=== PATIENT | female | born 1950 | race Two or more races ===

== ENCOUNTER 2017-12-10 16:54 | Inpatient (IN) | payer MEDICARE, MEDICAID ==
[~2017-12-10] VITALS: Ht 152.4 cm; Wt 65.8 kg
[~2017-12-10 16:54] MED LIST: ACET-929 PO; ACYC800T PO; GLIP-116 PO; LISI-646 PO
[2017-12-10] MEDS ORDERED: DEXTROSE 50% SYRINGE 50 ML IV ONE (17:22)
[2017-12-10] MEDS ORDERED: SODIUM CHLORIDE 0.9% 500 ML IV ONE (17:30)
[2017-12-10] MEDS ORDERED: DEXTROSE (50%) 50ML SYRG IV ONE (17:30)
[2017-12-10 17:48] LABS: Basophils # (auto) 0.1 uL; Basophils % (auto) 0.4 % (0.0-2.0); Eosinophils # (auto) 0.1 uL; Eosinophils % (auto) 0.8 % (0.0-7.0); Hematocrit 35.2 % (36.0-46.0); Hemoglobin 11.4 g/dL (12.2-16.2); Lymphocytes % (auto) 21.6 % (10.0-50.0); Mean Corpuscular Hemoglobin 28.9 pg (28.0-32.0); Mean Corpuscular Hgb Conc. 32.4 g/dL (32.0-36.0); Mean Corpuscular Volume 89.1 fL (80.0-100.0); Monocytes # (auto) 0.7 uL; Monocytes % (auto) 5.4 % (0.0-12.0); Neutrophils % (auto) 71.8 % (37.0-80.0); Nucleated Red Blood Cells % 0.1 %; Platelet Count (auto) 295 10^3/uL (140-450); Red Blood Cells 3.95 10^6/uL (4.0-5.20); Red Cell Distribution Width 13.8 % (11.8-14.3); White Blood Cell 13.9 10^3/uL (4.4-10.8)
[2017-12-10 17:59] LABS: INR 0.86 (0.9-1.15); Partial Thromboplastin Time 24.5 sec (23.78-33.04); Prothrombin Time 9.3 sec (9.27-12.13)
[2017-12-10 18:03] LABS: Albumin 3.5 g/dL (3.4-5.0); Calcium 9.4 mg/dL (8.5-10.1)
[2017-12-10 18:05] LABS: BUN/Creatinine Ratio 26.2
[2017-12-10 18:07] LABS: Bilirubin, Total 0.1 mg/dL (0.2-1.0); Total Protein 8.1 g/dL (6.4-8.2)
[2017-12-10 21:26] LABS: Urine Bacteria NONE SEEN /hpf (None Seen); Urine Blood Negative /uL (Negative); Urine Specific Gravity 1.023 (1.001-1.035); Urine WBC 16 /hpf (0 - 5)
[2017-12-10] MEDS ORDERED: TEMAZEPAM 15 MG CAP PO PRN (22:00)
[2017-12-10] MEDS ORDERED: MORPHINE SULFATE 8mg/ml INJ SDV IV PRN (22:00)
[2017-12-10] MEDS ORDERED: cefTRIAXone 1GM/10ml IVPUSH 10 ML IV ONE (22:00)
[2017-12-10] MEDS ORDERED: HYDROcodone-ACET 5/325MG TAB PO PRN (22:00)
[2017-12-10] MEDS ORDERED: ONDANSETRON HCL 4 MG/2 ML VIAL IV PRN (22:00)
[2017-12-11] VITALS (8 sets, daily range): BP systolic 127–176; BP diastolic 60–77
[2017-12-11] MEDS ORDERED: ATO40T PO (00:33)
[2017-12-11] MEDS ORDERED: METF-370 PO (00:33)
[2017-12-11] MEDS ORDERED: GABA100C9 PO (00:33)
[2017-12-11] MEDS ORDERED: IBUP800T24 PO (00:33)
[2017-12-11] MEDS: ACETAMINOPHEN 500 MG TAB PO PRN ×2 (01:43→17:41)
[2017-12-11] MEDS: ACCU-CHEK COMFORT CURVE STRIP VI SCH ×5 (04:00→16:00)
[2017-12-11] MEDS ORDERED: DEXTROSE (50%) 50ML SYRG IV PRN (04:15)
[2017-12-11] MEDS: GABAPENTIN 100 MG CAP PO SCH ×2 (04:26→13:22)
[2017-12-11 06:26] LABS: Basophils # (auto) 0.1 uL; Basophils % (auto) 0.5 % (0.0-2.0); Eosinophils # (auto) 0 uL; Eosinophils % (auto) 0.4 % (0.0-7.0); Hematocrit 28.1 % (36.0-46.0); Hemoglobin 9.7 g/dL (12.2-16.2); Lymphocytes # (auto) 2.7 uL; Lymphocytes % (auto) 25.7 % (10.0-50.0); Mean Corpuscular Hemoglobin 30.3 pg (28.0-32.0); Mean Corpuscular Hgb Conc. 34.4 g/dL (32.0-36.0); Mean Corpuscular Volume 88.2 fL (80.0-100.0); Monocytes # (auto) 0.7 uL; Monocytes % (auto) 6.1 % (0.0-12.0); Neutrophils # (auto) 7.2 uL; Neutrophils % (auto) 67.3 % (37.0-80.0); Platelet Count (auto) 256 10^3/uL (140-450); Red Blood Cells 3.19 10^6/uL (4.0-5.20); Red Cell Distribution Width 13.5 % (11.8-14.3); White Blood Cell 10.7 10^3/uL (4.4-10.8)
[2017-12-11 06:40] LABS: BUN/Creatinine Ratio 28.6; Calcium 8.9 mg/dL (8.5-10.1)
[2017-12-11] MEDS ORDERED: ACCU-CHEK COMFORT CURVE STRIP VI SCH (07:00)
[2017-12-11] MEDS: metFORMIN HYDROCHLORIDE 500 MG TAB PO SCH ×2 (08:31→17:32)
[2017-12-11] MEDS ORDERED: cefTRIAXone 1GM/10ml IVPUSH 10 ML IV SCH (09:00)
[2017-12-11] MEDS ORDERED: PANTOPRAZOLE 40 MG/10 ML VIAL IV SCH (10:00)
[2017-12-11] MEDS ORDERED: LISINOPRIL 20 MG TAB PO SCH ×2 (10:00)
[2017-12-11] MEDS ORDERED: SODIUM CHLORIDE 0.9% 1,000 ML IV ONE ×2 (15:00→15:15)
== END 2017-12-11 18:20 | disposition home or self-care (01) | DRG 638 ==
LOC: ER 17:04 → OVERFLOW 17:05 → WEST WING 23:59
PROVIDERS: ADMIT Nurse Practitioner Family; ATTEND Nurse Practitioner Family
DX: E11.649 Type 2 diabetes mellitus with hypoglycemia without coma (principal); N39.0 Urinary tract infection, site not specified; D64.9 Anemia, unspecified; E78.00 Pure hypercholesterolemia, unspecified; E78.5 Hyperlipidemia, unspecified; E86.0 Dehydration; F17.210 Nicotine dependence, cigarettes, uncomplicated; I10 Essential (primary) hypertension; Z79.84 Long term (current) use of oral hypoglycemic drugs; Z79.899 Other long term (current) drug therapy
CPT/HCPCS: 36415; 71045; 80048; 80053; 81001; 82962; 85025; 85610; 85730; 87086; 93005; 94761; 96374; 96375; C9113; J2405

== ENCOUNTER 2017-12-12 12:57 | Inpatient (IN) | payer MEDICARE, MEDICAID ==
[~2017-12-12] VITALS: Ht 152.4 cm; Wt 67.9 kg
[~2017-12-12 12:57] MED LIST changes: -ACET-929 PO; -ACYC800T PO; +ATO40T PO; +GABA100C9 PO; +IBUP800T24 PO; +METF-370 PO
[2017-12-12] MEDS ORDERED: SODIUM CHLORIDE 0.9% 1,000 ML IVB ONE (13:28)
[2017-12-12] MEDS ORDERED: DEXTROSE (50%) 50ML SYRG IV ONE (13:45)
[2017-12-12 13:56] LABS: Basophils # (auto) 0.1 uL; Basophils % (auto) 0.6 % (0.0-2.0); Eosinophils # (auto) 0.1 uL; Eosinophils % (auto) 0.8 % (0.0-7.0); Hematocrit 33.2 % (36.0-46.0); Hemoglobin 10.8 g/dL (12.2-16.2); Lymphocytes # (auto) 2.6 uL; Lymphocytes % (auto) 19.4 % (10.0-50.0); Mean Corpuscular Hemoglobin 28.9 pg (28.0-32.0); Mean Corpuscular Hgb Conc. 32.4 g/dL (32.0-36.0); Mean Corpuscular Volume 89.2 fL (80.0-100.0); Monocytes # (auto) 0.6 uL; Monocytes % (auto) 4.6 % (0.0-12.0); Neutrophils # (auto) 9.8 uL; Neutrophils % (auto) 74.6 % (37.0-80.0); Platelet Count (auto) 296 10^3/uL (140-450); Red Blood Cells 3.72 10^6/uL (4.0-5.20); Red Cell Distribution Width 13.9 % (11.8-14.3); White Blood Cell 13.2 10^3/uL (4.4-10.8)
[2017-12-12 14:07] LABS: INR 0.88 (0.9-1.15); Partial Thromboplastin Time 24.8 sec (23.78-33.04); Prothrombin Time 9.5 sec (9.27-12.13)
[2017-12-12 14:14] LABS: Albumin 3.4 g/dL (3.4-5.0); Calcium 9.2 mg/dL (8.5-10.1); Magnesium 1.4 mg/dL (1.6-2.6); Potassium 4.8 mmol/L (3.5-5.1)
[2017-12-12 14:17] LABS: BUN/Creatinine Ratio 26.6
[2017-12-12 14:19] LABS: Bilirubin, Total 0.2 mg/dL (0.2-1.0); Total Protein 7.8 g/dL (6.4-8.2)
[2017-12-12 15:10] LABS: Urine Bacteria FEW /hpf (None Seen); Urine Blood Negative /uL (Negative); Urine Specific Gravity 1.011 (1.001-1.035); Urine WBC 30 /hpf (0 - 5)
[2017-12-12] MEDS: MAGNESIUM SULFATE 1GM/100ML 100 ML IV SCH ×2 (15:57→16:29)
[2017-12-12] MEDS ORDERED: cefTRIAXone 1GM/10ml IVPUSH 10 ML IV ONE (16:00)
[2017-12-12] MEDS ORDERED: DEXTROSE (50%) 50ML SYRG IV PRN (17:45)
[2017-12-12] MEDS ORDERED: MAGNESIUM SULFATE 1GM/100ML 100 ML IV ONE (17:45)
[2017-12-12] MEDS ORDERED: ONDANSETRON HCL 4 MG/2 ML VIAL IV PRN (18:00)
[2017-12-12] MEDS ORDERED: NITROGLYCERIN 0.4 MG SL TAB SL PRN (18:00)
[2017-12-12] MEDS ORDERED: ACETAMINOPHEN 325 MG TAB PO PRN (18:00)
[2017-12-12] MEDS ORDERED: DOCUSATE SOD 100 MG CAP PO PRN (18:00)
[2017-12-12] MEDS ORDERED: MORPHINE SULFATE 8mg/ml INJ SDV IV PRN ×2 (18:00)
[2017-12-12 20:15] VITALS: BP 162/77
[2017-12-12] MEDS: cloNIDine HCL 0.1 MG TAB PO PRN (20:32)
[2017-12-12] MEDS: FAMOTIDINE 20 MG TAB PO SCH (21:56)
[2017-12-12] MEDS: SODIUM CHLOR 0.9% PF (SALINE LOCK) 10ML VIAL/SYR IV SCH (21:56)
[2017-12-12] MEDS: ACCU-CHEK COMFORT CURVE STRIP VI SCH (21:56)
[2017-12-12] MEDS: ATORVASTATIN 20 MG TAB PO SCH (21:56)
[2017-12-12] MEDS: InsuLIN REG 1unit/0.01ml Soln (100units/ml) SC SCH (21:57)
[2017-12-12 22:00] VITALS: BP 144/60
[2017-12-13 05:00] VITALS: BP 119/62
[2017-12-13] MEDS: SODIUM CHLOR 0.9% PF (SALINE LOCK) 10ML VIAL/SYR IV SCH ×3 (05:39→21:19)
[2017-12-13 06:48] LABS: Basophils # (auto) 0.1 uL; Basophils % (auto) 0.6 % (0.0-2.0); Eosinophils # (auto) 0.1 uL; Eosinophils % (auto) 0.8 % (0.0-7.0); Hemoglobin 9.7 g/dL (12.2-16.2); Lymphocytes # (auto) 2.8 uL; Lymphocytes % (auto) 30.9 % (10.0-50.0); Mean Corpuscular Hemoglobin 29.8 pg (28.0-32.0); Mean Corpuscular Hgb Conc. 33.5 g/dL (32.0-36.0); Mean Corpuscular Volume 88.8 fL (80.0-100.0); Monocytes # (auto) 0.7 uL; Monocytes % (auto) 7.6 % (0.0-12.0); Neutrophils # (auto) 5.4 uL; Neutrophils % (auto) 60.1 % (37.0-80.0); Nucleated Red Blood Cells % 0.1 %; Platelet Count (auto) 241 10^3/uL (140-450); Red Blood Cells 3.26 10^6/uL (4.0-5.20); Red Cell Distribution Width 13.6 % (11.8-14.3)
[2017-12-13] MEDS: InsuLIN REG 1unit/0.01ml Soln (100units/ml) SC SCH ×4 (06:52→21:31)
[2017-12-13] MEDS: ACCU-CHEK COMFORT CURVE STRIP VI SCH ×4 (06:52→21:19)
[2017-12-13 07:12] LABS: Albumin 2.8 g/dL (3.4-5.0); BUN/Creatinine Ratio 25.5; Bilirubin, Total 0.2 mg/dL (0.2-1.0); Calcium 8.7 mg/dL (8.5-10.1); Magnesium 2.1 mg/dL (1.6-2.6); Total Protein 6.5 g/dL (6.4-8.2)
[2017-12-13] MEDS: IBUPROFEN 800 MG TAB PO PRN ×2 (07:40→17:29)
[2017-12-13 07:52] LABS: Potassium 6.2 mmol/L (3.5-5.1)
[2017-12-13] MEDS ORDERED: glipiZIDE 5 MG TAB PO SCH (08:00)
[2017-12-13 08:40] VITALS: BP 139/70
[2017-12-13] MEDS: cefTRIAXone 1GM/10ml IVPUSH 10 ML IV SCH (09:27)
[2017-12-13] MEDS: MULTIPLE VITAMIN TAB PO SCH (09:27)
[2017-12-13] MEDS: FAMOTIDINE 20 MG TAB PO SCH ×2 (09:28→21:18)
[2017-12-13] MEDS ORDERED: LISINOPRIL 20 MG TAB PO SCH (10:00)
[2017-12-13 13:00] VITALS: BP 155/75
[2017-12-13 17:00] VITALS: BP 161/73
[2017-12-13] MEDS: cloNIDine HCL 0.1 MG TAB PO PRN (17:23)
[2017-12-13 19:40] VITALS: BP 152/78
[2017-12-13] MEDS: ATORVASTATIN 20 MG TAB PO SCH (21:18)
[2017-12-13] MEDS: TEMAZEPAM 15 MG CAP PO PRN (21:18)
[2017-12-13] MEDS: HYDROcodone-ACET 5/325MG TAB PO PRN (21:19)
[2017-12-13 21:41] VITALS: BP 130/60
[2017-12-14 04:40] VITALS: BP 120/68
[2017-12-14] MEDS: SODIUM CHLOR 0.9% PF (SALINE LOCK) 10ML VIAL/SYR IV SCH ×3 (06:11→21:20)
[2017-12-14] MEDS: ACCU-CHEK COMFORT CURVE STRIP VI SCH ×4 (06:12→21:20)
[2017-12-14] MEDS: glipiZIDE 5 MG TAB PO SCH ×2 (06:12→18:00)
[2017-12-14] MEDS: InsuLIN REG 1unit/0.01ml Soln (100units/ml) SC SCH ×4 (06:12→21:21)
[2017-12-14] MEDS: HYDROcodone-ACET 5/325MG TAB PO PRN (06:12)
[2017-12-14] MEDS: MULTIPLE VITAMIN TAB PO SCH (08:07)
[2017-12-14] MEDS: FAMOTIDINE 20 MG TAB PO SCH ×2 (08:07→21:20)
[2017-12-14] MEDS: IBUPROFEN 800 MG TAB PO PRN (08:07)
[2017-12-14] MEDS: cefTRIAXone 1GM/10ml IVPUSH 10 ML IV SCH (08:08)
[2017-12-14 09:00] VITALS: BP 141/75
[2017-12-14 12:15] VITALS: BP 145/68
[2017-12-14 17:11] VITALS: BP 162/78
[2017-12-14] MEDS: TEMAZEPAM 15 MG CAP PO PRN (21:20)
[2017-12-14] MEDS: ATORVASTATIN 20 MG TAB PO SCH (21:20)
[2017-12-14 22:00] VITALS: BP 124/64
[2017-12-15] VITALS (7 sets, daily range): BP systolic 119–157; BP diastolic 56–78
[2017-12-15] MEDS: SODIUM CHLOR 0.9% PF (SALINE LOCK) 10ML VIAL/SYR IV SCH ×3 (05:52→22:20)
[2017-12-15] MEDS: glipiZIDE 5 MG TAB PO SCH ×2 (05:52→18:00)
[2017-12-15] MEDS: ACCU-CHEK COMFORT CURVE STRIP VI SCH ×4 (05:53→22:21)
[2017-12-15] MEDS: InsuLIN REG 1unit/0.01ml Soln (100units/ml) SC SCH ×4 (05:53→22:20)
[2017-12-15 06:21] LABS: Basophils # (auto) 0.1 uL; Basophils % (auto) 0.6 % (0.0-2.0); Eosinophils # (auto) 0.2 uL; Eosinophils % (auto) 1.9 % (0.0-7.0); Hematocrit 29.5 % (36.0-46.0); Hemoglobin 9.8 g/dL (12.2-16.2); Lymphocytes # (auto) 2.8 uL; Lymphocytes % (auto) 31.3 % (10.0-50.0); Mean Corpuscular Hemoglobin 29.7 pg (28.0-32.0); Mean Corpuscular Hgb Conc. 33.3 g/dL (32.0-36.0); Mean Corpuscular Volume 89.2 fL (80.0-100.0); Monocytes # (auto) 0.7 uL; Monocytes % (auto) 7.5 % (0.0-12.0); Neutrophils # (auto) 5.2 uL; Neutrophils % (auto) 58.7 % (37.0-80.0); Platelet Count (auto) 264 10^3/uL (140-450); Red Cell Distribution Width 13.6 % (11.8-14.3); White Blood Cell 8.9 10^3/uL (4.4-10.8)
[2017-12-15 06:52] LABS: BUN/Creatinine Ratio 36.6; Calcium 8.4 mg/dL (8.5-10.1); Potassium 5.1 mmol/L (3.5-5.1)
[2017-12-15] MEDS ORDERED: SODIUM CHLORIDE 0.9% 1,000 ML IV ONE (09:00)
[2017-12-15] MEDS ORDERED: D5W/SOD CHLO 0.9% 1,000 ML IV ONE (09:30)
[2017-12-15] MEDS: FAMOTIDINE 20 MG TAB PO SCH ×2 (09:40→22:20)
[2017-12-15] MEDS: MULTIPLE VITAMIN TAB PO SCH (09:40)
[2017-12-15] MEDS: cefTRIAXone 1GM/10ml IVPUSH 10 ML IV SCH (09:41)
[2017-12-15] MEDS ORDERED: fentaNYL CITRATE 100 MCG/2 ML VL ONE (12:57)
[2017-12-15] MEDS ORDERED: SODIUM CHLORIDE LOCK 10 ML ONE (12:57)
[2017-12-15] MEDS ORDERED: LIDOCAINE VISCOUS 2% 15ML UD ONE (12:57)
[2017-12-15] MEDS ORDERED: MIDAZOLAM HCL 5 MG/ML-1ML VIAL ONE (12:58)
[2017-12-15] MEDS ORDERED: diphenhdrAMINE HCL 50 MG/1 ML VL ONE (12:58)
[2017-12-15] MEDS: ATORVASTATIN 20 MG TAB PO SCH (22:20)
[2017-12-16 05:00] VITALS: BP 141/67
[2017-12-16] MEDS: SODIUM CHLOR 0.9% PF (SALINE LOCK) 10ML VIAL/SYR IV SCH ×2 (06:33→14:00)
[2017-12-16] MEDS: ACCU-CHEK COMFORT CURVE STRIP VI SCH ×2 (06:34→12:26)
[2017-12-16] MEDS: InsuLIN REG 1unit/0.01ml Soln (100units/ml) SC SCH ×2 (06:34→12:27)
[2017-12-16] MEDS: glipiZIDE 5 MG TAB PO SCH (06:34)
[2017-12-16 08:00] VITALS: BP 143/69
[2017-12-16 08:43] VITALS: BP 143/69
[2017-12-16] MEDS: MULTIPLE VITAMIN TAB PO SCH (10:27)
[2017-12-16] MEDS: cefTRIAXone 1GM/10ml IVPUSH 10 ML IV SCH (10:27)
[2017-12-16] MEDS: FAMOTIDINE 20 MG TAB PO SCH (10:28)
[2017-12-16] MEDS ORDERED: GLIP-115 PO (10:54)
[2017-12-16] MEDS ORDERED: AMLO5TAB2 PO (10:54)
[2017-12-16] MEDS ORDERED: CEPH-37 PO (10:54)
[2017-12-16] MEDS ORDERED: LACTULOSE 20Gm/30ML SOLN PO ONE (11:45)
[2017-12-16 12:37] VITALS: BP 131/68
[2017-12-16 15:32] VITALS: BP 131/68
== END 2017-12-16 15:32 | disposition home or self-care (01) | DRG 638 ==
LOC: ER 12:58 → OVERFLOW 12:59 → WEST WING 20:07
PROVIDERS: ADMIT Internal Medicine; ATTEND Internal Medicine
PROC: 0D758ZZ Dilation of Esophagus, Via Natural or Artificial Opening Endoscopic (ICD-10-PCS; principal; 2017-12-15 12:56)
DX: E11.649 Type 2 diabetes mellitus with hypoglycemia without coma (principal); N39.0 Urinary tract infection, site not specified; E11.21 Type 2 diabetes mellitus with diabetic nephropathy; E11.40 Type 2 diabetes mellitus with diabetic neuropathy, unspecified; E83.42 Hypomagnesemia; D50.8 Other iron deficiency anemias; F17.210 Nicotine dependence, cigarettes, uncomplicated; R13.10 Dysphagia, unspecified; D63.8 Anemia in other chronic diseases classified elsewhere; E78.5 Hyperlipidemia, unspecified; N18.2 Chronic kidney disease, stage 2 (mild); R63.4 Abnormal weight loss; E04.2 Nontoxic multinodular goiter; E11.22 Type 2 diabetes mellitus with diabetic chronic kidney disease; Z83.3 Family history of diabetes mellitus; Z87.440 Personal history of urinary (tract) infections; Z68.29 Body mass index [BMI] 29.0-29.9, adult
CPT/HCPCS: 36415; 43235; 43450; 71045; 76536; 80048; 80053; 81001; 82150; 82962; 83036; 83690; 83735; 84132; 84443; 85025; 85610; 85730; 87081; 87086; 93005; 93306; 94761; 96361; 96374; 96375; J1815; J2250; J7042

== ENCOUNTER 2018-03-27 17:46 | Inpatient (IN) | payer MEDICARE, MEDICAID ==
[~2018-03-27] VITALS: Ht 157.5 cm; Wt 68.6 kg
[~2018-03-27 17:46] MED LIST changes: +AMLO5TAB13 PO; +CEPH-37 PO; +GLIP-115 PO; -GLIP-116 PO; -LISI-646 PO
[2018-03-27 18:31] LABS: Basophils # (auto) 0.1 uL; Basophils % (auto) 0.8 % (0.0-2.0); Eosinophils # (auto) 0.2 uL; Eosinophils % (auto) 1.7 % (0.0-7.0); Hematocrit 33.7 % (36.0-46.0); Hemoglobin 11.2 g/dL (12.2-16.2); Lymphocytes # (auto) 2.5 uL; Lymphocytes % (auto) 24.9 % (10.0-50.0); Mean Corpuscular Hgb Conc. 33.3 g/dL (32.0-36.0); Mean Corpuscular Volume 87.1 fL (80.0-100.0); Monocytes # (auto) 0.8 uL; Monocytes % (auto) 8.5 % (0.0-12.0); Neutrophils # (auto) 6.4 uL; Neutrophils % (auto) 64.1 % (37.0-80.0); Nucleated Red Blood Cells % 0.1 %; Platelet Count (auto) 303 10^3/uL (140-450); Red Blood Cells 3.87 10^6/uL (4.0-5.20); Red Cell Distribution Width 14.4 % (11.8-14.3); White Blood Cell 9.9 10^3/uL (4.4-10.8)
[2018-03-27] MEDS ORDERED: SODIUM CHLORIDE 0.9% 500 ML IV ONE (18:47)
[2018-03-27 18:48] LABS: Alanine Aminotransferase 60 U/L (13-56); Albumin 3.6 g/dL (3.4-5.0); Alkaline Phosphatase 145 U/L (45-117); Anion Gap 4 (5-15); Aspartate Aminotransferase 42 U/L (15-37); BUN/Creatinine Ratio 12.7; Bilirubin, Total 0.2 mg/dL (0.2-1.0); Blood Urea Nitrogen 18 mg/dL (7-18); Calcium 8.8 mg/dL (8.5-10.1); Carbon Dioxide 35 mmol/L (21-32); Chloride 102 mmol/L (98-107); GFR African American 48 mL/min; GFR Non-African American 39 mL/min; Glucose 68 mg/dL (74-106); Magnesium 2.2 mg/dL (1.6-2.6); Potassium 3.9 mmol/L (3.5-5.1); Sodium 141 mmol/L (136-145); Total Protein 8.3 g/dL (6.4-8.2)
[2018-03-27] MEDS ORDERED: HYDROcodone-ACET 5/325MG TAB PO PRN (23:00)
[2018-03-27] MEDS ORDERED: ONDANSETRON HCL 4 MG/2 ML VIAL IV PRN (23:00)
[2018-03-27] MEDS ORDERED: ACETAMINOPHEN 500 MG TAB PO PRN (23:00)
[2018-03-27] MEDS ORDERED: LISINOPRIL 20 MG TAB PO ONE (23:25)
[2018-03-28] VITALS: BP_SYST 173; BP_SYST 195; BP_DIAS 92; BP_DIAS 96
[2018-03-28] MEDS ORDERED: cloNIDine HCL 0.1 MG TAB PO ONE (04:15)
[2018-03-28 04:52] VITALS: BP 174/80
[2018-03-28] MEDS ORDERED: DEXTROSE (50%) 50ML SYRG IV PRN ×2 (06:15→07:15)
[2018-03-28] MEDS ORDERED: metFORMIN HYDROCHLORIDE 500 MG TAB PO SCH (07:00)
[2018-03-28 07:26] LABS: Basophils # (auto) 0 uL; Basophils % (auto) 0.5 % (0.0-2.0); Eosinophils # (auto) 0.1 uL; Hematocrit 30.1 % (36.0-46.0); Hemoglobin 10.5 g/dL (12.2-16.2); Lymphocytes # (auto) 2.4 uL; Lymphocytes % (auto) 25.9 % (10.0-50.0); Mean Corpuscular Hemoglobin 30.1 pg (28.0-32.0); Mean Corpuscular Hgb Conc. 34.8 g/dL (32.0-36.0); Mean Corpuscular Volume 86.5 fL (80.0-100.0); Monocytes # (auto) 0.7 uL; Neutrophils # (auto) 6.1 uL; Neutrophils % (auto) 65.6 % (37.0-80.0); Platelet Count (auto) 265 10^3/uL (140-450); Red Blood Cells 3.48 10^6/uL (4.0-5.20); Red Cell Distribution Width 14.6 % (11.8-14.3); White Blood Cell 9.3 10^3/uL (4.4-10.8)
[2018-03-28 07:43] LABS: BUN/Creatinine Ratio 13.1; Calcium 8.2 mg/dL (8.5-10.1); Potassium 4.1 mmol/L (3.5-5.1)
[2018-03-28 09:00] VITALS: BP 155/75
[2018-03-28] MEDS: LISINOPRIL 20 MG TAB PO SCH (09:24)
[2018-03-28] MEDS: PANTOPRAZOLE 40 MG/10 ML VIAL IV SCH (09:24)
[2018-03-28] MEDS: SODIUM CHLORIDE 0.9% 1,000 ML IV SCH (11:14)
[2018-03-28] MEDS ORDERED: amLODIPine BESYLATE 5 MG TAB PO ONE (11:15)
[2018-03-28] MEDS: ACCU-CHEK COMFORT CURVE STRIP VI SCH ×3 (11:37→21:51)
[2018-03-28] MEDS: InsuLIN REG 1unit/0.01ml Soln (100units/ml) SC SCH ×3 (11:37→21:58)
[2018-03-28 13:00] VITALS: BP 162/79
[2018-03-28] MEDS ORDERED: BARIUM SULFATE 98% 340 GM PWDR ONE (14:12)
[2018-03-28] MEDS ORDERED: EZ-GAS II GRANULES (RADIOLOGY USE) PO ONE (14:12)
[2018-03-28 17:00] VITALS: BP_SYST 121; BP_SYST 126; BP_DIAS 75; BP_DIAS 90
[2018-03-28 22:00] VITALS: BP 130/73
[2018-03-29 05:03] VITALS: BP 142/76
[2018-03-29] MEDS: ACCU-CHEK COMFORT CURVE STRIP VI SCH ×4 (06:42→22:08)
[2018-03-29] MEDS: InsuLIN REG 1unit/0.01ml Soln (100units/ml) SC SCH ×4 (06:43→22:08)
[2018-03-29 06:58] LABS: Basophils # (auto) 0 uL; Basophils % (auto) 0.5 % (0.0-2.0); Eosinophils # (auto) 0.1 uL; Eosinophils % (auto) 1.5 % (0.0-7.0); Hematocrit 29.7 % (36.0-46.0); Hemoglobin 10.2 g/dL (12.2-16.2); Lymphocytes # (auto) 2.6 uL; Lymphocytes % (auto) 31.5 % (10.0-50.0); Mean Corpuscular Hemoglobin 29.8 pg (28.0-32.0); Mean Corpuscular Hgb Conc. 34.2 g/dL (32.0-36.0); Mean Corpuscular Volume 87.1 fL (80.0-100.0); Monocytes # (auto) 0.6 uL; Monocytes % (auto) 6.8 % (0.0-12.0); Neutrophils # (auto) 4.9 uL; Neutrophils % (auto) 59.7 % (37.0-80.0); Platelet Count (auto) 247 10^3/uL (140-450); Red Blood Cells 3.41 10^6/uL (4.0-5.20); Red Cell Distribution Width 14.3 % (11.8-14.3); White Blood Cell 8.2 10^3/uL (4.4-10.8)
[2018-03-29 07:39] LABS: Albumin 2.9 g/dL (3.4-5.0); BUN/Creatinine Ratio 17.8; Bilirubin, Total 0.2 mg/dL (0.2-1.0); Calcium 8.3 mg/dL (8.5-10.1); Potassium 4.7 mmol/L (3.5-5.1); Total Protein 6.8 g/dL (6.4-8.2)
[2018-03-29] MEDS: SODIUM CHLORIDE 0.9% 1,000 ML IV SCH (08:20)
[2018-03-29] MEDS: PANTOPRAZOLE 40 MG/10 ML VIAL IV SCH (08:23)
[2018-03-29] MEDS: LISINOPRIL 20 MG TAB PO SCH (08:23)
[2018-03-29 09:00] VITALS: BP 163/76
[2018-03-29] MEDS ORDERED: amLODIPine BESYLATE 5 MG TAB PO SCH (10:00)
[2018-03-29] MEDS ORDERED: LORazepam 0.5 MG TAB PO ONE (11:15)
[2018-03-29 12:49] VITALS: BP 151/70
[2018-03-29 13:09] VITALS: BP 157/72
[2018-03-29] MEDS: NIFEdipine 10 MG CAP PO SCH ×2 (14:01→22:07)
[2018-03-29 17:00] VITALS: BP 135/63
[2018-03-29 21:01] LABS: Urine Bacteria NONE SEEN /hpf (None Seen); Urine Blood Negative /uL (Negative); Urine Specific Gravity 1.016 (1.001-1.035); Urine WBC 8 /hpf (0 - 5)
[2018-03-29 22:00] VITALS: BP 124/65
[2018-03-30 04:54] VITALS: BP 128/62
[2018-03-30] MEDS: NIFEdipine 10 MG CAP PO SCH (06:39)
[2018-03-30] MEDS: InsuLIN REG 1unit/0.01ml Soln (100units/ml) SC SCH ×2 (06:39→12:21)
[2018-03-30] MEDS: ACCU-CHEK COMFORT CURVE STRIP VI SCH ×2 (06:39→11:30)
[2018-03-30 08:00] VITALS: BP_SYST 106; BP_SYST 139; BP_DIAS 56; BP_DIAS 85
[2018-03-30] MEDS: LISINOPRIL 20 MG TAB PO SCH (10:00)
[2018-03-30] MEDS: PANTOPRAZOLE 40 MG/10 ML VIAL IV SCH (10:20)
[2018-03-30 12:00] VITALS: BP 136/63
[2018-03-30] MEDS ORDERED: NIFE20CA PO (12:16)
[2018-03-30] MEDS ORDERED: PANT40TA2 PO (12:16)
== END 2018-03-30 16:15 | disposition home or self-care (01) | DRG 638 ==
LOC: ER 17:51 → OVERFLOW 17:52 → CENTRAL 23:53
PROVIDERS: ADMIT Nurse Practitioner Family; ATTEND Internal Medicine
DX: E11.649 Type 2 diabetes mellitus with hypoglycemia without coma (principal); I16.1 Hypertensive emergency; K52.9 Noninfective gastroenteritis and colitis, unspecified; N18.9 Chronic kidney disease, unspecified; E11.22 Type 2 diabetes mellitus with diabetic chronic kidney disease; I12.9 Hypertensive chronic kidney disease with stage 1 through stage 4 chronic kidney disease, or unspecified chronic kidney disease; D64.9 Anemia, unspecified; E11.40 Type 2 diabetes mellitus with diabetic neuropathy, unspecified; E78.5 Hyperlipidemia, unspecified; K22.4 Dyskinesia of esophagus; E86.0 Dehydration; K76.0 Fatty (change of) liver, not elsewhere classified; Z79.84 Long term (current) use of oral hypoglycemic drugs; Z88.6 Allergy status to analgesic agent
CPT/HCPCS: 36415; 71046; 74220; 76705; 80048; 80053; 81001; 82962; 83036; 83690; 83735; 84484; 85025; 93005; 94761; 96361; 96374; C9113; J1815

== ENCOUNTER 2018-06-20 06:30 | Emergency (ER) | payer MEDICARE, MEDICAID ==
[~2018-06-20] VITALS: Ht 154.9 cm; Wt 65.3 kg
[~2018-06-20 06:30] MED LIST changes: -AMLO5TAB13 PO; -ATO40T PO; -CEPH-37 PO; +NIFE20CA PO; +PANT40TA2 PO
[2018-06-20 07:20] LABS: Basophils # (auto) 0.1 uL; Basophils % (auto) 0.6 % (0.0-2.0); Eosinophils # (auto) 0 uL; Eosinophils % (auto) 0.5 % (0.0-7.0); Hematocrit 33.7 % (36.0-46.0); Hemoglobin 11.1 g/dL (12.2-16.2); Lymphocytes # (auto) 2.1 uL; Lymphocytes % (auto) 21.2 % (10.0-50.0); Mean Corpuscular Hemoglobin 29.6 pg (28.0-32.0); Mean Corpuscular Hgb Conc. 32.9 g/dL (32.0-36.0); Mean Corpuscular Volume 89.9 fL (80.0-100.0); Monocytes # (auto) 0.5 uL; Monocytes % (auto) 4.7 % (0.0-12.0); Neutrophils # (auto) 7.4 uL; Nucleated Red Blood Cells % 0.1 %; Platelet Count (auto) 344 10^3/uL (140-450); Red Blood Cells 3.75 10^6/uL (4.0-5.20); Red Cell Distribution Width 14.7 % (11.8-14.3); White Blood Cell 10.1 10^3/uL (4.4-10.8)
[2018-06-20 07:40] LABS: Alanine Aminotransferase 34 U/L (13-56); Albumin 3.5 g/dL (3.4-5.0); Anion Gap 5 (5-15); Blood Urea Nitrogen 27 mg/dL (7-18); Calcium 8.6 mg/dL (8.5-10.1); Carbon Dioxide 20 mmol/L (21-32); Chloride 110 mmol/L (98-107); Glucose 144 mg/dL (74-106); Magnesium 1.9 mg/dL (1.6-2.6); Sodium 135 mmol/L (136-145)
[2018-06-20 07:44] LABS: Alkaline Phosphatase 141 U/L (45-117); Aspartate Aminotransferase 22 U/L (15-37); BUN/Creatinine Ratio 23.7; Bilirubin, Total 0.2 mg/dL (0.2-1.0); GFR African American 62 mL/min; GFR Non-African American 51 mL/min; Total Protein 8.1 g/dL (6.4-8.2)
[2018-06-20 07:49] LABS: Potassium 5.6 mmol/L (3.5-5.1)
[2018-06-20] MEDS ORDERED: DEXTROSE (50%) 50ML SYRG IV ONE (08:00)
[2018-06-20] MEDS ORDERED: InsuLIN REG 1unit/0.01ml Soln (100units/ml) IV ONE (08:00)
[2018-06-20] MEDS ORDERED: CALCIUM GLUC 4.65meq/50ml D5AE 50 ML IV ONE (08:00)
[2018-06-20] MEDS ORDERED: SODIUM BICARBONATE 8.4% INJ 50ML SYRINGE IV ONE (08:00)
[2018-06-20] MEDS ORDERED: LISI-646 PO (09:12)
[2018-06-20] MEDS ORDERED: AML5T PO (09:12)
[2018-06-20 09:42] LABS: Urine Bacteria FEW /hpf (None Seen); Urine Blood Negative /uL (Negative); Urine WBC 8 /hpf (0 - 5)
[2018-06-20 10:26] VITALS: BP 142/74
== END 2018-06-20 10:27 | disposition home or self-care (01) ==
LOC: ER 06:30
DX: N39.0 Urinary tract infection, site not specified (principal); E11.9 Type 2 diabetes mellitus without complications; E78.5 Hyperlipidemia, unspecified; R07.89 Other chest pain; I10 Essential (primary) hypertension; Z88.6 Allergy status to analgesic agent
CPT/HCPCS: 36415; 71045; 80053; 81001; 83735; 84484; 85025; 93005; 96365; 96375; 99284; J0610; J1815; J7042

== ENCOUNTER 2018-07-30 21:19 | Emergency (ER) | payer MEDICARE, MEDICAID ==
[~2018-07-30] VITALS: Ht 152.4 cm; Wt 65.8 kg
[~2018-07-30 21:19] MED LIST changes: +AML5T PO; -GABA100C9 PO; +LISI-646 PO; -NIFE20CA PO
[2018-07-30 22:30] LABS: Basophils # (auto) 0.1 uL; Basophils % (auto) 0.6 % (0.0-2.0); Eosinophils # (auto) 0.1 uL; Eosinophils % (auto) 1.1 % (0.0-7.0); Hematocrit 33.2 % (36.0-46.0); Hemoglobin 10.9 g/dL (12.2-16.2); Lymphocytes # (auto) 2.9 uL; Lymphocytes % (auto) 23.5 % (10.0-50.0); Mean Corpuscular Hemoglobin 29.2 pg (28.0-32.0); Mean Corpuscular Volume 88.5 fL (80.0-100.0); Monocytes # (auto) 0.8 uL; Monocytes % (auto) 6.2 % (0.0-12.0); Neutrophils # (auto) 8.4 uL; Neutrophils % (auto) 68.6 % (37.0-80.0); Nucleated Red Blood Cells % 0.1 %; Platelet Count (auto) 334 10^3/uL (140-450); Red Blood Cells 3.75 10^6/uL (4.0-5.20); Red Cell Distribution Width 14.3 % (11.8-14.3); White Blood Cell 12.2 10^3/uL (4.4-10.8)
[2018-07-30 22:45] LABS: Albumin 3.6 g/dL (3.4-5.0); BUN/Creatinine Ratio 17.7; Calcium 8.5 mg/dL (8.5-10.1); Potassium 4.8 mmol/L (3.5-5.1)
[2018-07-30 22:48] LABS: Bilirubin, Total 0.2 mg/dL (0.2-1.0); Total Protein 8.4 g/dL (6.4-8.2)
[2018-07-31 01:14] LABS: Urine Bacteria MOD /hpf (None Seen); Urine Blood Negative /uL (Negative); Urine Hyaline Cast FEW /lpf (0 - 2); Urine Mucus FEW (None Seen); Urine Specific Gravity 1.012 (1.001-1.035); Urine WBC 14 /hpf (0 - 5)
[2018-07-31 01:53] VITALS: BP 133/75
== END 2018-07-31 03:15 | disposition home or self-care (01) ==
LOC: ER 21:19
DX: E11.649 Type 2 diabetes mellitus with hypoglycemia without coma (principal); N20.0 Calculus of kidney; K57.92 Diverticulitis of intestine, part unspecified, without perforation or abscess without bleeding; K44.9 Diaphragmatic hernia without obstruction or gangrene; N39.0 Urinary tract infection, site not specified; K21.9 Gastro-esophageal reflux disease without esophagitis; K59.00 Constipation, unspecified; E78.5 Hyperlipidemia, unspecified; I10 Essential (primary) hypertension; Z79.4 Long term (current) use of insulin
CPT/HCPCS: 36415; 71045; 74176; 80053; 81001; 82962; 85025

== ENCOUNTER → 2019-11-05 | Emergency (ER) | payer MEDICARE, MEDICAID ==
[~2019-11-05] VITALS: Ht 157.5 cm; Wt 63.5 kg
[~2019-11-05] MED LIST changes: +ATO40T PO; +CETI10CA10 PO; +FUROSEMIDE 40 MG/4 ML VIAL IV ONE; -GLIP-115 PO; +GLIP5TAB12 PO; +LINA5TAB PO; +LISI10TA6 PO
[2019-11-05 08:47] LABS: Urine Bacteria NONE SEEN /hpf (None Seen); Urine Blood Negative /uL (Negative); Urine WBC <1 /hpf (0 - 5)
[2019-11-05 09:09] LABS: Basophils # (auto) 0.1 10 ^3/uL (0-0.2); Basophils % (auto) 0.7 % (0.0-2.0); Eosinophils # (auto) 0.1 10 ^3/uL (0-0.8); Eosinophils % (auto) 1.2 % (0.0-7.0); Hematocrit 25.7 % (36.0-46.0); Hemoglobin 8.5 g/dL (12.2-16.2); Lymphocytes # (auto) 1.8 10 ^3/uL (0.4-5.4); Lymphocytes % (auto) 20.5 % (10.0-50.0); Mean Corpuscular Hemoglobin 27.2 pg (28.0-32.0); Mean Corpuscular Hgb Conc. 33.2 g/dL (32.0-36.0); Mean Corpuscular Volume 81.8 fL (80.0-100.0); Monocytes # (auto) 0.7 10 ^3/uL (0-1.3); Monocytes % (auto) 7.8 % (0.0-12.0); Neutrophils % (auto) 69.8 % (37.0-80.0); Nucleated Red Blood Cells % 0.1 %; Platelet Count (auto) 301 10^3/uL (140-450); Red Blood Cells 3.14 10^6/uL (4.0-5.20); White Blood Cell 8.6 10^3/uL (4.4-10.8)
[2019-11-05 09:27] LABS: Anion Gap 6 (5-15); Blood Urea Nitrogen 17 mg/dL (7-18); Calcium 8.3 mg/dL (8.5-10.1); Carbon Dioxide 28 mmol/L (21-32); Chloride 104 mmol/L (98-107); Glucose 135 mg/dL (74-106); Sodium 138 mmol/L (136-145)
[2019-11-05 09:29] LABS: Alanine Aminotransferase 23 U/L (13-56); Aspartate Aminotransferase 14 U/L (15-37); BUN/Creatinine Ratio 16.7; GFR African American 70 mL/min; GFR Non-African American 58 mL/min
[2019-11-05 09:34] LABS: Alkaline Phosphatase 163 U/L (45-117); Bilirubin, Total 0.4 mg/dL (0.2-1.0); Total Protein 7.6 g/dL (6.4-8.2)
[2019-11-05 10:00] VITALS: BP 172/71
== END | disposition home or self-care (01) ==
LOC: ER 07:05
DX: I11.0 Hypertensive heart disease with heart failure (principal); I50.9 Heart failure, unspecified; J02.9 Acute pharyngitis, unspecified; R51 Headache; E11.9 Type 2 diabetes mellitus without complications; K21.9 Gastro-esophageal reflux disease without esophagitis; E78.5 Hyperlipidemia, unspecified
CPT/HCPCS: 36415; 70450; 71250; 80053; 81001; 84484; 85025; 87070; 87804; 87880; 96374; 99285; J1940

== ENCOUNTER 2019-11-07 12:31 | Inpatient (IN) | payer MEDICARE, MEDICAID ==
[~2019-11-07] VITALS: Ht 157.5 cm; Wt 69.9 kg
[~2019-11-07 12:31] MED LIST changes: -ATO40T PO; -CETI10CA10 PO; -FUROSEMIDE 40 MG/4 ML VIAL IV ONE; -LINA5TAB PO; -LISI10TA6 PO
[2019-11-07] MEDS ORDERED: FUROSEMIDE 20 MG/2 ML VIAL IV ONE (13:00)
[2019-11-07 13:39] LABS: Basophils # (auto) 0.1 10 ^3/uL (0-0.2); Hemoglobin 8.2 g/dL (12.2-16.2); Monocytes # (auto) 1.2 10 ^3/uL (0-1.3); Neutrophils # (auto) 6.9 10 ^3/uL (1.6-8.6); Red Cell Distribution Width 13.8 % (11.8-14.3)
[2019-11-07 13:41] LABS: Basophils % (auto) 0.9 % (0.0-2.0); Eosinophils # (auto) 0.1 10 ^3/uL (0-0.8); Eosinophils % (auto) 0.5 % (0.0-7.0); Hematocrit 25.1 % (36.0-46.0); Lymphocytes # (auto) 2.6 10 ^3/uL (0.4-5.4); Lymphocytes % (auto) 23.9 % (10.0-50.0); Mean Corpuscular Hemoglobin 26.4 pg (28.0-32.0); Mean Corpuscular Hgb Conc. 32.7 g/dL (32.0-36.0); Monocytes % (auto) 10.7 % (0.0-12.0); Nucleated Red Blood Cells % 0.1 %; Platelet Count (auto) 327 10^3/uL (140-450); White Blood Cell 10.8 10^3/uL (4.4-10.8)
[2019-11-07 13:43] LABS: Albumin 2.9 g/dL (3.4-5.0); Anion Gap 7 (5-15); Blood Urea Nitrogen 28 mg/dL (7-18); Calcium 7.6 mg/dL (8.5-10.1); Carbon Dioxide 37 mmol/L (21-32); Chloride 93 mmol/L (98-107); Glucose 254 mg/dL (74-106); Potassium 3.4 mmol/L (3.5-5.1); Sodium 137 mmol/L (136-145)
[2019-11-07 13:50] LABS: Alanine Aminotransferase 29 U/L (13-56); Alkaline Phosphatase 160 U/L (45-117); Aspartate Aminotransferase 25 U/L (15-37); BUN/Creatinine Ratio 15.1; Bilirubin, Total 0.5 mg/dL (0.2-1.0); GFR African American 35 mL/min; GFR Non-African American 29 mL/min; Total Protein 7.6 g/dL (6.4-8.2)
[2019-11-07 14:36] LABS: Urine Bacteria NONE SEEN /hpf (None Seen); Urine Blood Negative /uL (Negative); Urine Hyaline Cast FEW /lpf (0 - 2); Urine Specific Gravity 1.016 (1.001-1.035); Urine WBC 50 /hpf (0 - 5)
[2019-11-07] MEDS ORDERED: hydrALAZINE HCL 20 MG/ML VL IV PRN (15:45)
[2019-11-07] MEDS ORDERED: NITROGLYCERIN 0.4 MG SL TAB SL PRN (15:45)
[2019-11-07] MEDS ORDERED: MORPHINE SULF INJ 2 MG/ML SYRINGE 1ML IV PRN ×2 (15:45)
[2019-11-07] MEDS ORDERED: POTASSIUM EFFERVESENT TAB 25 MEQ PO ONE (15:45)
[2019-11-07] MEDS ORDERED: DEXTROSE (50%) 50ML SYRG IV PRN (15:45)
[2019-11-07] MEDS ORDERED: ONDANSETRON HCL 4 MG/2 ML VIAL IV PRN (15:45)
--- NOTE | 2019-11-07 16:40 | NUR ---
Report Report called from ER. Isela
--- NOTE | 2019-11-07 17:05 | NUR ---
Patient Arrived Patient arrived to unit. No signs of distress at this time, respirations even and unlabored. Patient on 4L nasal cannula. VS: T98.6, HR 100, BP 128/75, SpO2 91%, RR 20. Patient oriented to room. Safety precautions in place, will continue to monitor.
--- NOTE | 2019-11-07 17:30 | NUR ---
Patient Rounds Patient rounds done. Patient sitting up comfortably in bed. Admission questions and physical assessment done. Accu check 161. No signs of distress at this time. Patient encouraged to call for assistance with ambulation to bathroom. Safety precautions in place, will continue to monitor.
[2019-11-07] MEDS: InsuLIN REG 1unit/0.01ml Soln (100units/ml) SC SCH ×2 (18:01→21:22)
[2019-11-07] MEDS: ACCU-CHEK COMFORT CURVE STRIP VI SCH ×2 (18:03→21:22)
[2019-11-07] MEDS: FUROSEMIDE 20 MG/2 ML VIAL IV SCH (18:03)
[2019-11-07] MEDS ORDERED: METF-370 PO (18:05)
[2019-11-07] MEDS ORDERED: LINA5TAB PO ×2 (18:05→19:48)
[2019-11-07] MEDS ORDERED: ATO40T PO (18:05)
[2019-11-07] MEDS ORDERED: CETI10CA10 PO (18:05)
--- NOTE | 2019-11-07 18:45 | NUR ---
Password Patient states she does not want to set up a password at this time. Patient educated on use for password. Patient states she will call her son to determine what password will be. Will endorse.
--- NOTE | 2019-11-07 18:45 | NUR ---
POM POM taken to pharm. Copy given to patient. POM band on, director of retention chart.
--- NOTE | 2019-11-07 19:00 | NUR ---
Closing Note Report given to PAULA DOS SANTOS.
--- NOTE | 2019-11-07 19:00 | NUR ---
OPENING NOTE Received report from day shift RN. Patient is A&O X's 4 with no s/s of distress and reports some mild pain to bilateral flank area. Patient reports not needing any pain medication at this time. Patient ambulated to bathroom with walker and standby assistance. Patient reported being able to urinate without any difficulty. Patient demonstrated some SOB with ambulation. O2 was at 93% with 4L N.[place]. Educated patient on POC and to use call light when in need of assistance. patient verbalized understanding. Bed is in lowest/locked position with side rails up X's 2 and call light is within reach of patient. Bed alarm is on. Will continue care.
[2019-11-07 19:24] VITALS: BP 128/75
[2019-11-07] MEDS ORDERED: LISI10TA6 PO (19:48)
[2019-11-07] MEDS: ATORVASTATIN 20 MG TAB PO SCH (21:21)
[2019-11-07] MEDS: METOPROLOL TARTRATE 25 MG TAB PO SCH (21:22)
[2019-11-07] MEDS: ACETAMINOPHEN 500 MG TAB PO PRN (21:29)
--- NOTE | 2019-11-07 21:30 | NUR ---
PAIN ASSESSMENT Patient is complaining of back/side pain rated at a 5. Patient states pain as an ache and denies any radiation at this time. Patient requested Tylenol for pain.
[2019-11-07 21:36] VITALS: BP 137/67
--- NOTE | 2019-11-07 22:30 | NUR ---
PAIN REASSESSMENT Patient is still reporting some lower back pain at this time on both sides. Educated patient on pain medications. Patient reported not wanting any other pain medication besides Tylenol. Patient reports that anything else will make her dizzy. Applied heating pack to help pain. Will continue care.
--- NOTE | 2019-11-08 01:20 | NUR ---
ROUNDS Patient states that the heating pack helped pain a little bit. Patient is complaining of pain more to the left flank area than the right flank. Repositioned patient. Patient still refusing any more pain medication.
--- NOTE | 2019-11-08 02:23 | NUR ---
ROUNDS Patient is now resting in bed at this time. Patient shows no s/s of discomfort or any distress.
[2019-11-08 05:00] VITALS: BP 134/64
--- NOTE | 2019-11-08 05:30 | NUR ---
MEDICATION SENT FROM [facility] TO [facility] P[facility] AND SENT TO [facility].
[2019-11-08] MEDS: ACCU-CHEK COMFORT CURVE STRIP VI SCH ×4 (06:08→22:29)
[2019-11-08] MEDS: InsuLIN REG 1unit/0.01ml Soln (100units/ml) SC SCH ×4 (06:08→22:48)
[2019-11-08] MEDS: FUROSEMIDE 20 MG/2 ML VIAL IV SCH (06:27)
[2019-11-08 06:29] LABS: Basophils # (auto) 0.1 10 ^3/uL (0-0.2); Eosinophils # (auto) 0.1 10 ^3/uL (0-0.8); Eosinophils % (auto) 1.1 % (0.0-7.0); Hemoglobin 7.2 g/dL (12.2-16.2); Monocytes # (auto) 0.9 10 ^3/uL (0-1.3); Neutrophils # (auto) 5.6 10 ^3/uL (1.6-8.6)
[2019-11-08 06:31] LABS: Basophils % (auto) 0.7 % (0.0-2.0); Hematocrit 22.3 % (36.0-46.0); Lymphocytes # (auto) 2.4 10 ^3/uL (0.4-5.4); Mean Corpuscular Hemoglobin 26.4 pg (28.0-32.0); Mean Corpuscular Hgb Conc. 32.4 g/dL (32.0-36.0); Mean Corpuscular Volume 81.3 fL (80.0-100.0); Monocytes % (auto) 10.1 % (0.0-12.0); Neutrophils % (auto) 62.1 % (37.0-80.0); Nucleated Red Blood Cells % 0.1 %; Platelet Count (auto) 270 10^3/uL (140-450); Red Blood Cells 2.74 10^6/uL (4.0-5.20)
[2019-11-08 06:41] LABS: BUN/Creatinine Ratio 14.1; Calcium 7.6 mg/dL (8.5-10.1); Potassium 3.3 mmol/L (3.5-5.1)
--- NOTE | 2019-11-08 07:00 | NUR ---
Opening Shift Note Assumed care of patient, awake and alert. No S/S of distress/SOB or pain. Instructed on POC and to call for assist PRN, will continue to monitor for changes Q1hr and PRN.
[2019-11-08] MEDS: cefTRIAXone 1GM/50ML D5W 50 ML IV SCH (08:19)
[2019-11-08] MEDS: ACETAMINOPHEN 500 MG TAB PO PRN (08:19)
[2019-11-08 09:00] VITALS: BP 144/73
[2019-11-08] MEDS: FAMOTIDINE 20 MG TAB PO SCH (09:41)
[2019-11-08] MEDS: METOPROLOL TARTRATE 25 MG TAB PO SCH ×2 (09:43→22:27)
[2019-11-08] MEDS: LISINOPRIL 10 MG TAB PO SCH (09:44)
--- NOTE | 2019-11-08 09:45 | NUR ---
PATIENT COMPLAING OF LOWER BACK PAIN. GAVE PATIENT HEAT PACKS WRAPPED IN TOWELS FOR LOWER BACK.
[2019-11-08] MEDS ORDERED: AZITHROMYCIN 500MG/ 250ML 250 ML IV SCH (10:00)
[2019-11-08] MEDS ORDERED: ASPirin-EC 81 mg tab PO SCH (10:00)
--- NOTE | 2019-11-08 12:42 | NUR ---
DR. VALLES AT BEDSIDE DISCUSSING POC WITH PATIENT.
[2019-11-08 13:00] VITALS: BP 143/65
--- NOTE | 2019-11-08 14:02 | NUR ---
returned call Dr. Carrizales returned call, updated on patient status and reason for call, orders received. Continue care.
[2019-11-08] MEDS ORDERED: POTASSIUM CHL 20 Meq TABLET PO ONE (16:00)
[2019-11-08] MEDS: HYDROcodone-ACET 5/325MG TAB PO PRN ×2 (16:20→22:27)
[2019-11-08 17:00] VITALS: BP 143/66
[2019-11-08] MEDS: FUROSEMIDE 100 MG/10ML VIAL IV SCH (17:38)
--- NOTE | 2019-11-08 18:22 | NUR ---
IV insertion IV access obtained, via clean sterile technique by inserting 20 gauge catheter at after attempt(s). IV secured properly. No trauma to site. Patient tolerated well. NOTE:
--- NOTE | 2019-11-08 18:22 | NUR ---
IV removal IV DC'd with clean sterile technique, catheter fully intact. Pressure dressing applied to site. Patient tolerated well. NOTE:
[2019-11-08 21:49] VITALS: BP 132/73
[2019-11-08] MEDS: ATORVASTATIN 20 MG TAB PO SCH (22:26)
[2019-11-08] MEDS: HEPARIN SODIUM (PORCINE) 5000 UNITS/ML 1ML VIAL SC SCH (22:28)
[2019-11-09 05:00] VITALS: BP 148/74
[2019-11-09 05:48] LABS: Basophils # (auto) 0.1 10 ^3/uL (0-0.2); Basophils % (auto) 0.7 % (0.0-2.0); Eosinophils # (auto) 0.1 10 ^3/uL (0-0.8); Eosinophils % (auto) 0.9 % (0.0-7.0); Hematocrit 22.6 % (36.0-46.0); Hemoglobin 7.3 g/dL (12.2-16.2); Lymphocytes # (auto) 2.1 10 ^3/uL (0.4-5.4); Lymphocytes % (auto) 22.2 % (10.0-50.0); Mean Corpuscular Hemoglobin 26.3 pg (28.0-32.0); Mean Corpuscular Hgb Conc. 32.3 g/dL (32.0-36.0); Mean Corpuscular Volume 81.4 fL (80.0-100.0); Monocytes % (auto) 10.4 % (0.0-12.0); Neutrophils # (auto) 6.1 10 ^3/uL (1.6-8.6); Neutrophils % (auto) 65.8 % (37.0-80.0); Nucleated Red Blood Cells % 0.1 %; Platelet Count (auto) 284 10^3/uL (140-450); Red Blood Cells 2.77 10^6/uL (4.0-5.20); White Blood Cell 9.3 10^3/uL (4.4-10.8)
[2019-11-09 06:12] LABS: BUN/Creatinine Ratio 18.3; Calcium 7.9 mg/dL (8.5-10.1); Potassium 3.8 mmol/L (3.5-5.1)
[2019-11-09] MEDS: ACCU-CHEK COMFORT CURVE STRIP VI SCH ×4 (06:31→22:16)
[2019-11-09] MEDS: FUROSEMIDE 100 MG/10ML VIAL IV SCH ×2 (06:31→17:29)
[2019-11-09] MEDS: InsuLIN REG 1unit/0.01ml Soln (100units/ml) SC SCH ×4 (06:46→22:27)
--- NOTE | 2019-11-09 07:45 | NUR ---
Patient in bed, awake, oriented x2. On O2 at 4 LPM. No acute distress noted. Portuguese speaking.
[2019-11-09] MEDS: cefTRIAXone 1GM/50ML D5W 50 ML IV SCH (08:23)
[2019-11-09] MEDS: HYDROcodone-ACET 5/325MG TAB PO PRN ×3 (08:23→23:51)
--- NOTE | 2019-11-09 08:23 | NUR ---
Patient with facial grimacing noted, stated she's in pain. [place] 5/325 PO given for pain.
[2019-11-09 09:09] VITALS: BP 117/76
[2019-11-09] MEDS: AZITHROMYCIN 250 MG TAB PO SCH (09:57)
[2019-11-09] MEDS: LISINOPRIL 10 MG TAB PO SCH (09:58)
[2019-11-09] MEDS: FAMOTIDINE 20 MG TAB PO SCH (09:58)
[2019-11-09] MEDS: METOPROLOL TARTRATE 25 MG TAB PO SCH ×2 (09:59→22:15)
[2019-11-09] MEDS ORDERED: MAGNESIUM OXIDE 400 MG TAB PO ONE (10:00)
[2019-11-09] MEDS: HEPARIN SODIUM (PORCINE) 5000 UNITS/ML 1ML VIAL SC SCH ×2 (10:02→22:22)
[2019-11-09 10:20] LABS: % Iron Saturation 4.6 % (15-50)
[2019-11-09] MEDS ORDERED: SODIUM FERR GLUC 62.5MG/5ML 125 MG in SODIUM CHL 0.9% 100 ML IV ONE (11:15)
--- NOTE | 2019-11-09 11:34 | NUR ---
Called Pharmacy for the Venofer/Iron Sucrose drip as ordered. Pharmacy to prepare the medication in 10 minutes.
--- NOTE | 2019-11-09 11:49 | NUR ---
Dr. Carrizales at bedside. to call SALIMA Sheikh for Cardiology Consult. MD is aware of Hgb = 7.3. Dr. Carrizales has orders for Venofer/Iron Sucrose drip.
[2019-11-09] MEDS ORDERED: SODIUM FERR GLUC 62.5MG/5ML 125 MG in SODIUM CHL 0.9% 100 ML IV SCH (12:00)
[2019-11-09] MEDS: IRON SUCROSE COMPLEX 200 MG in SODIUM CHL 0.9% 100 ML IV SCH (12:01)
--- NOTE | 2019-11-09 12:20 | NUR ---
SALIMA Sheikh at bedside for Cardiology Consult. Kori said that patient requested for front wheel walker with seat because the FWW at bedside belongs to the patient's friend.
[2019-11-09 13:00] VITALS: BP 116/74
--- NOTE | 2019-11-09 16:10 | NUR ---
Urine specimen sent to Laboratory.
[2019-11-09 16:45] LABS: Protein, Urine 82.9 mg/dL (0.0-11.9)
--- NOTE | 2019-11-09 16:47 | NUR ---
Assessment Patient is a 68-year-old female who is alert and oriented. Prior to admission patient lived home with her son Torey and functioned independently. Patient informed me she does not have any medical equipment. Patient informed me she can care for her own ADLs. Per patient she will return home to her prior living arrangements post discharge and family will transport her home. Advised patient there is a Social Service order for walker with seat. Patient informed me she would like to see if she qualifies for home oxygen. Informed patient I will inform doctor. Informed Patient she has the right to participate in all discharge planning. Patient verbalized understanding and agrees to discharge plan. Informed Dr. Carrizales patient is requesting home oxygen. MD Dr. Carrizales advised me she will evaluate patient and will put in an order for ABG. Advised RAYA Hurd regarding orders for ABG. Faxed clinical information to [facility] requesting walker with seat to be deliver to [facility]. Addendum: 11/09/19 at 1652 by MARGUERITE KIDD Amended: Links added.
--- NOTE | 2019-11-09 16:50 | NUR ---
Front wheel walker with cushioned seat (color black) delivered, picked it up at the Main Lobby. Walker given to patient at bedside.
--- NOTE | 2019-11-09 17:00 | NUR ---
RT Marie said patient qualifies for Home O2.
[2019-11-09 17:10] VITALS: BP 126/76
--- NOTE | 2019-11-09 17:17 | NUR ---
[place] 5/325 PO given for knee pain.
--- NOTE | 2019-11-09 19:30 | NUR ---
Opening Shift Note Assumed care of patient, awake and alert oriented x4. No S/S of distress/SOB noted. Patient currently on 4 liters nasal cannula tolerating well. Walker at the bedside. Instructed on POC and to call for assist PRN. Bed is in lowest locked position with bed rails up x2 and call light is within reach.
[2019-11-09 22:00] VITALS: BP 147/78
[2019-11-09] MEDS: ATORVASTATIN 20 MG TAB PO SCH (22:16)
--- NOTE | 2019-11-09 23:51 | NUR ---
Pain: Patient has 6/10 pain on knees described as an ache. [place] 5/325 PO given for knee pain at this time.
[2019-11-10 05:00] VITALS: BP 147/73
[2019-11-10 05:12] LABS: Basophils # (auto) 0.1 10 ^3/uL (0-0.2); Eosinophils # (auto) 0.1 10 ^3/uL (0-0.8); Eosinophils % (auto) 1.2 % (0.0-7.0); Hemoglobin 7.5 g/dL (12.2-16.2); Lymphocytes # (auto) 1.5 10 ^3/uL (0.4-5.4)
[2019-11-10 05:16] LABS: Basophils % (auto) 0.6 % (0.0-2.0); Hematocrit 23.1 % (36.0-46.0); Lymphocytes % (auto) 16.2 % (10.0-50.0); Mean Corpuscular Hemoglobin 26.3 pg (28.0-32.0); Mean Corpuscular Hgb Conc. 32.2 g/dL (32.0-36.0); Mean Corpuscular Volume 81.7 fL (80.0-100.0); Monocytes # (auto) 1.2 10 ^3/uL (0-1.3); Monocytes % (auto) 12.2 % (0.0-12.0); Neutrophils # (auto) 6.6 10 ^3/uL (1.6-8.6); Neutrophils % (auto) 69.8 % (37.0-80.0); Nucleated Red Blood Cells % 0.1 %; Platelet Count (auto) 318 10^3/uL (140-450); Red Blood Cells 2.83 10^6/uL (4.0-5.20); Red Cell Distribution Width 14.1 % (11.8-14.3); White Blood Cell 9.5 10^3/uL (4.4-10.8)
[2019-11-10 05:31] LABS: Calcium 8.1 mg/dL (8.5-10.1); Potassium 3.7 mmol/L (3.5-5.1)
[2019-11-10] MEDS: ACCU-CHEK COMFORT CURVE STRIP VI SCH ×4 (06:35→21:37)
[2019-11-10] MEDS: FUROSEMIDE 100 MG/10ML VIAL IV SCH ×2 (06:36→16:44)
[2019-11-10] MEDS: InsuLIN REG 1unit/0.01ml Soln (100units/ml) SC SCH ×4 (06:40→21:38)
--- NOTE | 2019-11-10 07:45 | NUR ---
Patient in bed, asleep, on o2 at 4 LPM. No acute distress noted.
[2019-11-10 09:10] VITALS: BP 160/79
[2019-11-10] MEDS: HEPARIN SODIUM (PORCINE) 5000 UNITS/ML 1ML VIAL SC SCH ×2 (09:25→21:33)
[2019-11-10] MEDS: AZITHROMYCIN 250 MG TAB PO SCH (09:27)
[2019-11-10] MEDS: cefTRIAXone 1GM/50ML D5W 50 ML IV SCH (09:27)
[2019-11-10] MEDS: HYDROcodone-ACET 5/325MG TAB PO PRN ×2 (09:27→16:47)
--- NOTE | 2019-11-10 09:27 | NUR ---
Patient stated her left knee hurts. [place] 5/325 PO given for pain.
[2019-11-10] MEDS: FAMOTIDINE 20 MG TAB PO SCH (09:28)
[2019-11-10] MEDS: METOPROLOL TARTRATE 25 MG TAB PO SCH ×2 (09:28→21:37)
[2019-11-10] MEDS: LISINOPRIL 10 MG TAB PO SCH (09:29)
--- NOTE | 2019-11-10 11:10 | NUR ---
Portable O2 for home delivered at bedside by [employer].
--- NOTE | 2019-11-10 11:30 | NUR ---
[employer] [facility] will order another portable O2.
--- NOTE | 2019-11-10 11:40 | NUR ---
Called Pharmacy for [facility]
--- NOTE | 2019-11-10 11:50 | NUR ---
Dr. Katz came over to see the patient. MD made aware patient qualifies for home O2 at 4 LPM, waiting to be delivered at bedside.
[2019-11-10] MEDS: IRON SUCROSE COMPLEX 200 MG in SODIUM CHL 0.9% 100 ML IV SCH (11:56)
[2019-11-10 13:00] VITALS: BP 136/79
--- NOTE | 2019-11-10 13:00 | NUR ---
BP = 136/79.
--- NOTE | 2019-11-10 13:10 | NUR ---
New IV line started on the right hand, 22 gauge, in one attempt, intact and patent. Patient able to tolerate it. IV line on the left forearm, leaking noted, IV line removed, IV catheter intact, pressures dressing applied.
[2019-11-10] MEDS: ACETAMINOPHEN 500 MG TAB PO PRN (13:32)
--- NOTE | 2019-11-10 13:32 | NUR ---
Patient stated she's in pain, at 3/10 at this time Tylenol PO given for pain.
--- NOTE | 2019-11-10 13:40 | NUR ---
Portable O2 delivered, picked up at the Main Lobby. Portable O2 given to patient at bedside to bring home on discharge.
--- NOTE | 2019-11-10 14:35 | NUR ---
re-assessment Per consult home 02 at 4LPM. order sent to [facility]. Per Abner patient qualifies and oxygen has been delivered to bedside. Patient is clear on social service stand point. Addendum: 11/10/19 at 1442 by Jagruti Dukes Amended: Links added.
--- NOTE | 2019-11-10 16:44 | NUR ---
BP = 138/69, Heart rate = 81, O2 Sat = 98% on O2 at 4 LPM. No acute distress noted.
--- NOTE | 2019-11-10 16:47 | NUR ---
Patient stated she has headache, her back and knee hurt. [place] 5/325 PO given for pain.
[2019-11-10 16:53] VITALS: BP 130/76
[2019-11-10] MEDS: ATORVASTATIN 20 MG TAB PO SCH (21:29)
[2019-11-10 22:00] VITALS: BP 135/74
[2019-11-11 05:00] VITALS: BP 141/66
[2019-11-11] MEDS: FUROSEMIDE 100 MG/10ML VIAL IV SCH ×2 (05:19→18:10)
[2019-11-11 06:20] LABS: Hematocrit 23.5 % (36.0-46.0); Hemoglobin 7.7 g/dL (12.2-16.2)
[2019-11-11] MEDS: ACCU-CHEK COMFORT CURVE STRIP VI SCH ×4 (06:29→21:49)
[2019-11-11] MEDS: InsuLIN REG 1unit/0.01ml Soln (100units/ml) SC SCH ×4 (06:30→21:49)
[2019-11-11 06:42] LABS: Potassium 3.4 mmol/L (3.5-5.1)
[2019-11-11 07:02] LABS: BUN/Creatinine Ratio 18.6; Calcium 8.2 mg/dL (8.5-10.1); Magnesium 2.1 mg/dL (1.6-2.6)
--- NOTE | 2019-11-11 07:24 | NUR ---
Report given to Amparo Chandler, patient is resting no distress.
--- NOTE | 2019-11-11 07:35 | NUR ---
Opening Shift Note Assumed care of patient from noc shift rn, awake and alert. No S/S of distress/SOB, reports 3/10 pain. Plan of care discussed, encouraged to call for assist PRN. Bed in locked and lowest position, side rales up x2, call light and phone within reach. Will continue to monitor for changes Q1hr and PRN.
[2019-11-11 08:00] VITALS: BP 149/64
[2019-11-11] MEDS: cefTRIAXone 1GM/50ML D5W 50 ML IV SCH (08:31)
[2019-11-11] MEDS: ACETAMINOPHEN 500 MG TAB PO PRN ×2 (08:31→16:09)
[2019-11-11 09:39] VITALS: BP 149/64
[2019-11-11] MEDS: FAMOTIDINE 20 MG TAB PO SCH (09:42)
[2019-11-11] MEDS: METOPROLOL TARTRATE 25 MG TAB PO SCH ×2 (09:42→21:38)
[2019-11-11] MEDS: AZITHROMYCIN 250 MG TAB PO SCH (09:43)
[2019-11-11] MEDS: LISINOPRIL 10 MG TAB PO SCH (09:43)
[2019-11-11] MEDS: HEPARIN SODIUM (PORCINE) 5000 UNITS/ML 1ML VIAL SC SCH ×2 (09:49→21:41)
[2019-11-11] MEDS: IRON SUCROSE COMPLEX 200 MG in SODIUM CHL 0.9% 100 ML IV SCH (12:52)
[2019-11-11 13:00] VITALS: BP 146/67
[2019-11-11 17:12] VITALS: BP 156/81
[2019-11-11] MEDS ORDERED: POTASSIUM EFFERVESENT TAB 25 MEQ PO ONE (17:15)
[2019-11-11] MEDS: ALUM & MAG HYDROX-SIMETH LIQ(MAALOX) 30 ML PO SCH (18:10)
[2019-11-11] MEDS: guaiFENesin 200 MG/10 ML UD PO SCH (18:10)
[2019-11-11] MEDS: IBUPROFEN 600 MG TAB PO SCH ×2 (20:12→22:00)
[2019-11-11] MEDS: ATORVASTATIN 20 MG TAB PO SCH (21:37)
[2019-11-11 22:42] VITALS: BP 145/68
[2019-11-12] MEDS: ALUM & MAG HYDROX-SIMETH LIQ(MAALOX) 30 ML PO SCH ×5 (02:00→14:24)
[2019-11-12] MEDS: guaiFENesin 200 MG/10 ML UD PO SCH ×4 (02:00→14:24)
[2019-11-12 05:12] VITALS: BP 134/60
[2019-11-12 05:32] LABS: Eosinophils # (auto) 0.2 10 ^3/uL (0-0.8); Lymphocytes # (auto) 1.7 10 ^3/uL (0.4-5.4)
[2019-11-12 05:33] LABS: Basophils # (auto) 0 10 ^3/uL (0-0.2); Basophils % (auto) 0.4 % (0.0-2.0); Eosinophils % (auto) 2.5 % (0.0-7.0); Hematocrit 23.2 % (36.0-46.0); Hemoglobin 7.5 g/dL (12.2-16.2); Lymphocytes % (auto) 19.8 % (10.0-50.0); Mean Corpuscular Hemoglobin 26.3 pg (28.0-32.0); Mean Corpuscular Hgb Conc. 32.5 g/dL (32.0-36.0); Mean Corpuscular Volume 80.9 fL (80.0-100.0); Monocytes % (auto) 11.7 % (0.0-12.0); Neutrophils # (auto) 5.5 10 ^3/uL (1.6-8.6); Neutrophils % (auto) 65.6 % (37.0-80.0); Platelet Count (auto) 310 10^3/uL (140-450); Red Blood Cells 2.87 10^6/uL (4.0-5.20); Red Cell Distribution Width 13.9 % (11.8-14.3); White Blood Cell 8.4 10^3/uL (4.4-10.8)
[2019-11-12] MEDS: FUROSEMIDE 100 MG/10ML VIAL IV SCH (05:33)
[2019-11-12] MEDS: IBUPROFEN 600 MG TAB PO SCH ×2 (05:33→14:24)
--- NOTE | 2019-11-12 05:33 | NUR ---
Medicated with Motrin 600mg.p.o. one tab. for left arm pain.
[2019-11-12 05:45] LABS: Potassium 3.9 mmol/L (3.5-5.1)
[2019-11-12 05:50] LABS: Calcium 8.4 mg/dL (8.5-10.1)
--- NOTE | 2019-11-12 06:10 | NUR ---
Medicated with guaifenesin 200mg.p.o for dry cough.
[2019-11-12] MEDS: InsuLIN REG 1unit/0.01ml Soln (100units/ml) SC SCH ×3 (06:11→17:00)
[2019-11-12] MEDS: ACCU-CHEK COMFORT CURVE STRIP VI SCH ×3 (06:11→17:00)
--- NOTE | 2019-11-12 06:33 | NUR ---
Pain in the arm relieved with the Motrin.
--- NOTE | 2019-11-12 07:29 | NUR ---
Report given to Amparo Chandler, patient is resting no distress.
--- NOTE | 2019-11-12 07:38 | NUR ---
Opening Shift Note Assumed care of patient from noc shift rn, awake, alert and oriented x4. No S/S of distress/SOB, denies pain at this time. Plan of care discussed, encouraged to call for assist PRN. Bed in locked and lowest position, side rales up x2, call light and phone within reach. Will continue to monitor for changes Q1hr and PRN.
[2019-11-12 08:00] VITALS: BP 148/71
[2019-11-12] MEDS: cefTRIAXone 1GM/50ML D5W 50 ML IV SCH (08:47)
[2019-11-12 09:00] VITALS: BP 148/71
[2019-11-12] MEDS: AZITHROMYCIN 250 MG TAB PO SCH (09:35)
[2019-11-12] MEDS: METOPROLOL TARTRATE 25 MG TAB PO SCH (09:35)
[2019-11-12] MEDS: LISINOPRIL 10 MG TAB PO SCH (09:36)
[2019-11-12] MEDS: HEPARIN SODIUM (PORCINE) 5000 UNITS/ML 1ML VIAL SC SCH (09:48)
[2019-11-12] MEDS: FAMOTIDINE 20 MG TAB PO SCH (10:32)
[2019-11-12] MEDS: ACETAMINOPHEN 500 MG TAB PO PRN (11:51)
[2019-11-12] MEDS: IRON SUCROSE COMPLEX 200 MG in SODIUM CHL 0.9% 100 ML IV SCH (12:30)
[2019-11-12 13:00] VITALS: BP 140/57
[2019-11-12 14:00] VITALS: BP 140/57
--- NOTE | 2019-11-12 17:20 | NUR ---
Patient discharged home per MD's order. Copies of discharge summary, new prescriptions and follow up instructions provided. Patient alert and oriented and verbalized understanding of instructions. Daughter also given instruction on home oxygen use. Patient discharged with all personal belongings including walker with seat and oxygen tank. IV discontinued and tele box returned to ICU.
== END 2019-11-12 17:20 | disposition home or self-care (01) | DRG 177 ==
LOC: ER 12:31 → TELE 12:32 → TELE-WESTW 17:06
PROVIDERS: ADMIT Nurse Practitioner Acute Care; ATTEND Internal Medicine
DX: J15.6 Pneumonia due to other Gram-negative bacteria (principal); N17.0 Acute kidney failure with tubular necrosis; J96.01 Acute respiratory failure with hypoxia; I50.43 Acute on chronic combined systolic (congestive) and diastolic (congestive) heart failure; I13.0 Hypertensive heart and chronic kidney disease with heart failure and stage 1 through stage 4 chronic kidney disease, or unspecified chronic kidney disease; J21.9 Acute bronchiolitis, unspecified; J81.1 Chronic pulmonary edema; J98.11 Atelectasis; J91.8 Pleural effusion in other conditions classified elsewhere; N12 Tubulo-interstitial nephritis, not specified as acute or chronic; E87.6 Hypokalemia; N18.3 Chronic kidney disease, stage 3 (moderate); E11.22 Type 2 diabetes mellitus with diabetic chronic kidney disease; E78.5 Hyperlipidemia, unspecified; D50.9 Iron deficiency anemia, unspecified; E66.9 Obesity, unspecified; K21.9 Gastro-esophageal reflux disease without esophagitis; Z82.49 Family history of ischemic heart disease and other diseases of the circulatory system; Z68.28 Body mass index [BMI] 28.0-28.9, adult; Z79.4 Long term (current) use of insulin; Z87.891 Personal history of nicotine dependence
CPT/HCPCS: 36415; 36600; 70450; 71045; 71250; 80048; 80053; 81001; 82570; 82805; 82962; 83036; 83540; 83550; 83735; 83880; 84156; 84443; 84484; 85014; 85018; 85025; 86141; 87070; 87077; 87086; 87205; 87449; 87804; 87880; 93005; 93306; 93970; 96374; 96375; 97163; G0378; J0696; J1756; J1815

== ENCOUNTER 2019-12-02 14:26 | Emergency (ER) | payer MEDICARE, MEDICAID ==
[~2019-12-02] VITALS: Ht 157.5 cm; Wt 65.8 kg
[~2019-12-02 14:26] MED LIST changes: +ATO40T PO; +CETI10CA10 PO; -GLIP5TAB12 PO; -IBUP800T24 PO; +LINA5TAB PO; -LISI-646 PO; +LISI10TA6 PO
[2019-12-02 15:07] VITALS: BP 163/70
[2019-12-02] MEDS ORDERED: ACETAMINOPHEN 500 MG TAB PO ONE (16:45)
== END 2019-12-02 17:09 | disposition home or self-care (01) ==
LOC: ER 14:26
DX: S01.01XA Laceration without foreign body of scalp, initial encounter (principal); W22.8XXA Striking against or struck by other objects, initial encounter; Y93.89 Activity, other specified; Y92.89 Other specified places as the place of occurrence of the external cause; Y99.8 Other external cause status
CPT/HCPCS: 12002; 70450; 93005

== ENCOUNTER 2019-12-13 12:22 | Emergency (ER) | payer MEDICARE, MEDICAID ==
[~2019-12-13] VITALS: Ht 154.9 cm; Wt 63.5 kg
[2019-12-13 13:02] VITALS: BP 110/52
== END 2019-12-13 13:27 | disposition home or self-care (01) ==
LOC: ER 12:22
DX: S01.01XD Laceration without foreign body of scalp, subsequent encounter (principal); E11.9 Type 2 diabetes mellitus without complications; K21.9 Gastro-esophageal reflux disease without esophagitis; E78.5 Hyperlipidemia, unspecified; X58.XXXD Exposure to other specified factors, subsequent encounter

== ENCOUNTER 2021-01-24 17:12 | Inpatient (IN) | payer MEDICARE, MEDICAID ==
[~2021-01-24] VITALS: Ht 152.4 cm; Wt 70.2 kg
[~2021-01-24 17:12] MED LIST changes: +LISI-716 PO; -LISI10TA6 PO
[2021-01-24 18:13] LABS: Basophils # (auto) 0.1 10 ^3/uL (0-0.2); Basophils % (auto) 0.9 % (0.0-2.0); Eosinophils # (auto) 0.2 10 ^3/uL (0-0.8); Hematocrit 30.8 % (36.0-46.0); Hemoglobin 10.4 g/dL (12.2-16.2); Lymphocytes # (auto) 3.3 10 ^3/uL (0.4-5.4); Lymphocytes % (auto) 36.3 % (10.0-50.0); Mean Corpuscular Hemoglobin 29.8 pg (28.0-32.0); Mean Corpuscular Hgb Conc. 33.8 g/dL (32.0-36.0); Mean Corpuscular Volume 88.1 fL (80.0-100.0); Monocytes # (auto) 0.7 10 ^3/uL (0-1.3); Monocytes % (auto) 7.4 % (0.0-12.0); Neutrophils # (auto) 4.8 10 ^3/uL (1.6-8.6); Neutrophils % (auto) 53.4 % (37.0-80.0); Red Cell Distribution Width 13.9 % (11.8-14.3)
[2021-01-24 18:24] LABS: Albumin 3.5 g/dL (3.4-5.0); Calcium 8.2 mg/dL (8.5-10.1)
[2021-01-24 18:27] LABS: BUN/Creatinine Ratio 9.6; Bilirubin, Total 0.2 mg/dL (0.2-1.0); Total Protein 7.7 g/dL (6.4-8.2)
[2021-01-24 18:31] LABS: Potassium 5.8 mmol/L (3.5-5.1)
[2021-01-24] MEDS ORDERED: SODIUM ZIRCONIUM CYCL 10 GM PAK PO ONE (19:15)
[2021-01-24] MEDS ORDERED: InsuLIN REG 1unit/0.01ml Soln (100units/ml) IV ONE (19:15)
[2021-01-24 20:48] LABS: Urine Bacteria FEW /hpf (None Seen); Urine Blood Negative /uL (Negative); Urine Specific Gravity 1.007 (1.001-1.035); Urine WBC 1 /hpf (0 - 5)
[2021-01-24] MEDS ORDERED: MORPHINE SULF INJ 2 MG/ML SYRINGE 1ML IV PRN (23:00)
[2021-01-24] MEDS ORDERED: DEXTROSE (50%) 50ML SYRG IV PRN (23:00)
[2021-01-24] MEDS ORDERED: ONDANSETRON HCL 4 MG/2 ML VIAL IV PRN (23:00)
[2021-01-24] MEDS ORDERED: NITROGLYCERIN 0.4 MG SL TAB SL PRN (23:00)
[2021-01-24] MEDS ORDERED: DOCUSATE SOD 100 MG CAP PO PRN (23:00)
[2021-01-24] MEDS ORDERED: HYDROcodone-ACET 5/325MG TAB PO PRN (23:00)
[2021-01-25 00:20] VITALS: BP 123/67
[2021-01-25 05:00] VITALS: BP 132/68
[2021-01-25] MEDS: SODIUM CHLOR 0.9% PF (SALINE LOCK) 10ML VIAL/SYR IV SCH ×3 (06:26→22:00)
[2021-01-25] MEDS: ACCU-CHEK COMFORT CURVE STRIP VI SCH ×4 (06:26→22:00)
[2021-01-25] MEDS: InsuLIN REG 1unit/0.01ml Soln (100units/ml) SC SCH ×4 (06:27→22:37)
[2021-01-25 06:44] LABS: Basophils # (auto) 0.1 10 ^3/uL (0-0.2); Basophils % (auto) 0.8 % (0.0-2.0); Eosinophils # (auto) 0.2 10 ^3/uL (0-0.8); Eosinophils % (auto) 2.3 % (0.0-7.0); Hematocrit 29.4 % (36.0-46.0); Hemoglobin 10.2 g/dL (12.2-16.2); Lymphocytes # (auto) 2.8 10 ^3/uL (0.4-5.4); Lymphocytes % (auto) 35.5 % (10.0-50.0); Mean Corpuscular Hemoglobin 30.4 pg (28.0-32.0); Mean Corpuscular Hgb Conc. 34.6 g/dL (32.0-36.0); Mean Corpuscular Volume 87.9 fL (80.0-100.0); Monocytes # (auto) 0.6 10 ^3/uL (0-1.3); Neutrophils # (auto) 4.2 10 ^3/uL (1.6-8.6); Neutrophils % (auto) 53.4 % (37.0-80.0); Red Blood Cells 3.35 10^6/uL (4.0-5.20); White Blood Cell 7.8 10^3/uL (4.4-10.8)
[2021-01-25 07:17] LABS: Calcium 8.4 mg/dL (8.5-10.1); Potassium 5.4 mmol/L (3.5-5.1)
[2021-01-25 07:20] LABS: Bilirubin, Total 0.2 mg/dL (0.2-1.0); Total Protein 6.8 g/dL (6.4-8.2)
[2021-01-25 07:21] LABS: BUN/Creatinine Ratio 9.6
[2021-01-25 08:46] VITALS: BP 138/64
[2021-01-25] MEDS: ASCORBIC ACID 500 MG TAB PO SCH ×2 (11:18→22:35)
[2021-01-25] MEDS: FAMOTIDINE 20 MG TAB PO SCH ×2 (11:18→22:36)
[2021-01-25] MEDS: ZINC SULFATE 220mg CAP or TAB PO SCH (11:19)
[2021-01-25] MEDS: MULTIPLE VITAMIN TAB PO SCH (11:19)
[2021-01-25] MEDS ORDERED: HEPARIN SODIUM (PORCINE) 5000 UNITS/ML 1ML VIAL ONE (11:21)
[2021-01-25] MEDS: ACETAMINOPHEN 325 MG TAB PO PRN (11:30)
[2021-01-25] MEDS: HEPARIN SODIUM (PORCINE) 5000 UNITS/ML 1ML VIAL SC SCH ×2 (11:45→22:37)
[2021-01-25] MEDS ORDERED: SODIUM ZIRCONIUM CYCL 10 GM PAK PO ONE (12:15)
[2021-01-25 12:41] VITALS: BP 152/77
[2021-01-25 16:34] VITALS: BP 165/86
[2021-01-25] MEDS ORDERED: hydrALAZINE HCL 20 MG/ML VL IV PRN (16:45)
[2021-01-25] MEDS: MECLIZINE HCL 25 MG TAB PO SCH ×2 (16:55→22:36)
[2021-01-25 22:00] VITALS: BP 125/67
[2021-01-25] MEDS: ATORVASTATIN 20 MG TAB PO SCH (22:35)
[2021-01-26 05:00] VITALS: BP 113/58
[2021-01-26] MEDS: SODIUM CHLOR 0.9% PF (SALINE LOCK) 10ML VIAL/SYR IV SCH ×3 (06:00→22:00)
[2021-01-26 06:02] LABS: Protein, Urine 50.9 mg/dL (0.0-11.9)
[2021-01-26] MEDS: ACCU-CHEK COMFORT CURVE STRIP VI SCH ×4 (06:25→22:00)
[2021-01-26] MEDS: MECLIZINE HCL 25 MG TAB PO SCH ×4 (06:26→22:30)
[2021-01-26 06:31] LABS: Basophils # (auto) 0.1 10 ^3/uL (0-0.2); Basophils % (auto) 1.2 % (0.0-2.0); Eosinophils # (auto) 0.1 10 ^3/uL (0-0.8); Eosinophils % (auto) 1.8 % (0.0-7.0); Hematocrit 31.1 % (36.0-46.0); Hemoglobin 10.7 g/dL (12.2-16.2); Lymphocytes # (auto) 2.4 10 ^3/uL (0.4-5.4); Mean Corpuscular Hgb Conc. 34.3 g/dL (32.0-36.0); Mean Corpuscular Volume 87.5 fL (80.0-100.0); Monocytes # (auto) 0.4 10 ^3/uL (0-1.3); Monocytes % (auto) 6.2 % (0.0-12.0); Neutrophils # (auto) 3.6 10 ^3/uL (1.6-8.6); Neutrophils % (auto) 54.8 % (37.0-80.0); Nucleated Red Blood Cells % 0.1 %; Red Blood Cells 3.56 10^6/uL (4.0-5.20); Red Cell Distribution Width 13.8 % (11.8-14.3); White Blood Cell 6.6 10^3/uL (4.4-10.8)
[2021-01-26] MEDS: InsuLIN REG 1unit/0.01ml Soln (100units/ml) SC SCH ×4 (06:34→22:34)
[2021-01-26 06:53] LABS: Potassium 5.1 mmol/L (3.5-5.1)
[2021-01-26 07:01] LABS: BUN/Creatinine Ratio 16.9; Calcium 8.2 mg/dL (8.5-10.1)
[2021-01-26 09:00] VITALS: BP 122/57
[2021-01-26] MEDS ORDERED: SODIUM ZIRCONIUM CYCL 10 GM PAK PO ONE (09:30)
[2021-01-26] MEDS: ASCORBIC ACID 500 MG TAB PO SCH ×2 (09:54→22:31)
[2021-01-26] MEDS: FAMOTIDINE 20 MG TAB PO SCH ×2 (09:54→22:31)
[2021-01-26] MEDS: MULTIPLE VITAMIN TAB PO SCH (09:54)
[2021-01-26] MEDS: ZINC SULFATE 220mg CAP or TAB PO SCH (09:54)
[2021-01-26] MEDS: CLOPIDOGREL BISULFATE 75 MG TAB PO SCH (09:54)
[2021-01-26] MEDS: HEPARIN SODIUM (PORCINE) 5000 UNITS/ML 1ML VIAL SC SCH ×2 (09:56→22:32)
[2021-01-26 13:00] VITALS: BP 130/65
[2021-01-26 17:00] VITALS: BP 140/81
[2021-01-26 22:00] VITALS: BP 118/66
[2021-01-26] MEDS: ATORVASTATIN 20 MG TAB PO SCH (22:30)
[2021-01-27] MEDS ORDERED: PANTOPRAZOLE 40 MG TAB PO ONE (00:30)
[2021-01-27] MEDS: ACETAMINOPHEN 325 MG TAB PO PRN (00:40)
[2021-01-27 05:00] VITALS: BP 142/76
[2021-01-27] MEDS: MECLIZINE HCL 25 MG TAB PO SCH ×4 (06:18→21:48)
[2021-01-27] MEDS: InsuLIN REG 1unit/0.01ml Soln (100units/ml) SC SCH ×4 (06:18→21:49)
[2021-01-27] MEDS: ACCU-CHEK COMFORT CURVE STRIP VI SCH ×4 (06:28→21:49)
[2021-01-27] MEDS: SODIUM CHLOR 0.9% PF (SALINE LOCK) 10ML VIAL/SYR IV SCH ×3 (06:28→21:50)
[2021-01-27 06:42] LABS: Basophils # (auto) 0.1 10 ^3/uL (0-0.2); Basophils % (auto) 0.8 % (0.0-2.0); Eosinophils # (auto) 0.2 10 ^3/uL (0-0.8); Eosinophils % (auto) 2.4 % (0.0-7.0); Hematocrit 31.9 % (36.0-46.0); Hemoglobin 10.9 g/dL (12.2-16.2); Lymphocytes # (auto) 2.8 10 ^3/uL (0.4-5.4); Lymphocytes % (auto) 41.4 % (10.0-50.0); Mean Corpuscular Hgb Conc. 34.3 g/dL (32.0-36.0); Mean Corpuscular Volume 87.4 fL (80.0-100.0); Monocytes # (auto) 0.5 10 ^3/uL (0-1.3); Monocytes % (auto) 6.9 % (0.0-12.0); Neutrophils # (auto) 3.3 10 ^3/uL (1.6-8.6); Neutrophils % (auto) 48.5 % (37.0-80.0); Nucleated Red Blood Cells % 0.1 %; Red Blood Cells 3.65 10^6/uL (4.0-5.20); Red Cell Distribution Width 13.9 % (11.8-14.3); White Blood Cell 6.8 10^3/uL (4.4-10.8)
[2021-01-27 06:54] LABS: BUN/Creatinine Ratio 16.2; Calcium 8.3 mg/dL (8.5-10.1)
[2021-01-27] MEDS: ASCORBIC ACID 500 MG TAB PO SCH ×2 (08:31→21:48)
[2021-01-27] MEDS: FAMOTIDINE 20 MG TAB PO SCH ×2 (08:31→21:48)
[2021-01-27] MEDS: ZINC SULFATE 220mg CAP or TAB PO SCH (08:31)
[2021-01-27] MEDS: MULTIPLE VITAMIN TAB PO SCH (08:31)
[2021-01-27] MEDS: CLOPIDOGREL BISULFATE 75 MG TAB PO SCH (08:31)
[2021-01-27] MEDS: HEPARIN SODIUM (PORCINE) 5000 UNITS/ML 1ML VIAL SC SCH ×2 (08:42→21:49)
[2021-01-27 09:00] VITALS: BP 137/71
[2021-01-27 13:00] VITALS: BP 133/66
[2021-01-27 17:00] VITALS: BP 148/77
[2021-01-27] MEDS: ATORVASTATIN 20 MG TAB PO SCH (21:48)
[2021-01-27 22:00] VITALS: BP 135/72
[2021-01-28 05:00] VITALS: BP 126/66
[2021-01-28] MEDS: ACCU-CHEK COMFORT CURVE STRIP VI SCH ×2 (06:13→11:46)
[2021-01-28] MEDS: SODIUM CHLOR 0.9% PF (SALINE LOCK) 10ML VIAL/SYR IV SCH ×2 (06:13→14:00)
[2021-01-28] MEDS: MECLIZINE HCL 25 MG TAB PO SCH ×2 (06:14→11:46)
[2021-01-28] MEDS: InsuLIN REG 1unit/0.01ml Soln (100units/ml) SC SCH ×2 (06:18→11:47)
[2021-01-28 07:46] LABS: Alanine Aminotransferase 19 U/L (13-56); Albumin 2.8 g/dL (3.4-5.0); Alkaline Phosphatase 101 U/L (45-117); Aspartate Aminotransferase 14 U/L (15-37); Blood Urea Nitrogen 23 mg/dL (7-18); Calcium 8.3 mg/dL (8.5-10.1); Carbon Dioxide 21 mmol/L (21-32); Chloride 108 mmol/L (98-107)
[2021-01-28 07:48] LABS: Anion Gap 6 (5-15); Glucose 205 mg/dL (74-106); Potassium 5.1 mmol/L (3.5-5.1); Sodium 135 mmol/L (136-145)
[2021-01-28 07:49] LABS: BUN/Creatinine Ratio 15.3; Bilirubin, Total 0.2 mg/dL (0.2-1.0); GFR African American 44 mL/min; GFR Non-African American 37 mL/min; Phosphorus 4.1 mg/dL (2.5-4.90); Total Protein 6.9 g/dL (6.4-8.2)
[2021-01-28] MEDS: ASCORBIC ACID 500 MG TAB PO SCH (08:11)
[2021-01-28] MEDS: FAMOTIDINE 20 MG TAB PO SCH (08:11)
[2021-01-28] MEDS: ZINC SULFATE 220mg CAP or TAB PO SCH (08:12)
[2021-01-28] MEDS: CLOPIDOGREL BISULFATE 75 MG TAB PO SCH (08:12)
[2021-01-28] MEDS: MULTIPLE VITAMIN TAB PO SCH (08:12)
[2021-01-28] MEDS: HEPARIN SODIUM (PORCINE) 5000 UNITS/ML 1ML VIAL SC SCH (08:24)
[2021-01-28 09:00] VITALS: BP 126/69
[2021-01-28 13:00] VITALS: BP 116/68
== END 2021-01-28 14:25 | disposition home or self-care (01) | DRG 73 ==
LOC: ER 17:12 → TELE 22:52 → TELE-WESTW 23:47
PROVIDERS: ADMIT Nurse Practitioner Family; ATTEND Family Medicine
DX: G90.8 Other disorders of autonomic nervous system (principal); N17.0 Acute kidney failure with tubular necrosis; E87.1 Hypo-osmolality and hyponatremia; I95.1 Orthostatic hypotension; E87.5 Hyperkalemia; E11.65 Type 2 diabetes mellitus with hyperglycemia; N18.31 Chronic kidney disease, stage 3a; E78.5 Hyperlipidemia, unspecified; E11.22 Type 2 diabetes mellitus with diabetic chronic kidney disease; Z82.49 Family history of ischemic heart disease and other diseases of the circulatory system; K21.9 Gastro-esophageal reflux disease without esophagitis; Z20.822 Contact with and (suspected) exposure to COVID-19; Z88.6 Allergy status to analgesic agent; Z79.84 Long term (current) use of oral hypoglycemic drugs; Z79.899 Other long term (current) drug therapy; D63.1 Anemia in chronic kidney disease; I10 Essential (primary) hypertension; E11.21 Type 2 diabetes mellitus with diabetic nephropathy
CPT/HCPCS: 36415; 70450; 71045; 76775; 80048; 80053; 81001; 82306; 82570; 82962; 83036; 83735; 83970; 84100; 84132; 84156; 84443; 84484; 84550; 85025; 85049; 87426; 93005; 93306; 93886; 96374; G0378; J1815

== ENCOUNTER 2021-05-22 13:15 | Inpatient (IN) | payer MEDICARE, MEDICAID ==
[~2021-05-22] VITALS: Ht 157.5 cm; Wt 71.0 kg
[2021-05-22 16:08] LABS: Basophils # (auto) 0.1 10 ^3/uL (0-0.2); Basophils % (auto) 0.9 % (0.0-2.0); Eosinophils # (auto) 0.1 10 ^3/uL (0-0.8); Eosinophils % (auto) 1.3 % (0.0-7.0); Hematocrit 31.6 % (36.0-46.0); Hemoglobin 10.4 g/dL (12.2-16.2); Lymphocytes # (auto) 2.3 10 ^3/uL (0.4-5.4); Lymphocytes % (auto) 24.6 % (10.0-50.0); Mean Corpuscular Hgb Conc. 32.8 g/dL (32.0-36.0); Mean Corpuscular Volume 91.5 fL (80.0-100.0); Monocytes # (auto) 0.5 10 ^3/uL (0-1.3); Monocytes % (auto) 5.9 % (0.0-12.0); Neutrophils # (auto) 6.3 10 ^3/uL (1.6-8.6); Neutrophils % (auto) 67.3 % (37.0-80.0); Nucleated Red Blood Cells % 0.1 %; Red Blood Cells 3.45 10^6/uL (4.0-5.20); Red Cell Distribution Width 14.4 % (11.8-14.3); White Blood Cell 9.3 10^3/uL (4.4-10.8)
[2021-05-22 16:35] LABS: Anion Gap 9 (5-15); Blood Urea Nitrogen 32 mg/dL (7-18); Calcium 8.8 mg/dL (8.5-10.1); Carbon Dioxide 17 mmol/L (21-32); Chloride 112 mmol/L (98-107); Glucose 110 mg/dL (74-106); Sodium 138 mmol/L (136-145)
[2021-05-22 16:37] LABS: BUN/Creatinine Ratio 25.4; GFR African American 54 mL/min; GFR Non-African American 45 mL/min
[2021-05-22 16:46] LABS: Alanine Aminotransferase 35 U/L (13-56); Albumin 3.6 g/dL (3.4-5.0); Alkaline Phosphatase 130 U/L (45-117); Aspartate Aminotransferase 20 U/L (15-37); Bilirubin, Total 0.2 mg/dL (0.2-1.0); Total Protein 7.6 g/dL (6.4-8.2)
[2021-05-22 16:56] LABS: Potassium 6.6 mmol/L (3.5-5.1)
[2021-05-22] MEDS ORDERED: CALCIUM GLUC 1,000mg/50ml-NS 50 ML IV ONE (17:00)
[2021-05-22] MEDS ORDERED: ALBUTEROL SULF 2.5 MG/0.5ML(0.5%) NEB SOLN NEB ONE (17:00)
[2021-05-22] MEDS ORDERED: InsuLIN REG 1unit/0.01ml Soln (100units/ml) IV ONE (17:00)
[2021-05-22] MEDS ORDERED: SODIUM ZIRCONIUM CYCL 10 GM PAK PO ONE (17:00)
[2021-05-22] MEDS ORDERED: DEXTROSE (50%) 50ML SYRG IV ONE (17:00)
[2021-05-22] MEDS ORDERED: FUROSEMIDE 20 MG/2 ML VIAL IV ONE (17:00)
[2021-05-22] MEDS ORDERED: SODIUM BICARBONATE 8.4% INJ 50ML SYRINGE IV ONE (17:00)
[2021-05-22] MEDS ORDERED: ACETAMINOPHEN 325 MG TAB PO ONE (22:45)
[2021-05-23] MEDS ORDERED: MORPHINE SULFATE 4 MG/ML SYR/VIAL IV PRN (00:30)
[2021-05-23] MEDS ORDERED: MORPHINE SULFATE INJECTION 2 MG/ML SYRG IV PRN (00:30)
[2021-05-23] MEDS ORDERED: ONDANSETRON HCL 4 MG/2 ML VIAL IV PRN (00:30)
[2021-05-23] MEDS ORDERED: ALBUTEROL SULF 2.5 MG/0.5ML(0.5%) NEB SOLN NEB PRN (00:30)
[2021-05-23] MEDS ORDERED: NITROGLYCERIN 0.4 MG SL TAB SL PRN (00:30)
[2021-05-23] MEDS ORDERED: DEXTROSE (50%) 50ML SYRG IV PRN ×2 (00:30→19:45)
[2021-05-23] MEDS ORDERED: SODIUM CHLORIDE 0.9% 1,000 ML IV SCH (00:30)
[2021-05-23] MEDS ORDERED: DOCUSATE SOD 100 MG CAP PO PRN (00:30)
[2021-05-23] MEDS: ACCU-CHEK COMFORT CURVE STRIP VI SCH ×3 (06:44→23:08)
[2021-05-23] MEDS: InsuLIN REG 1unit/0.01ml Soln (100units/ml) SC SCH ×3 (07:08→22:00)
[2021-05-23 07:16] LABS: Basophils # (auto) 0 10 ^3/uL (0-0.2); Basophils % (auto) 0.5 % (0.0-2.0); Eosinophils # (auto) 0 10 ^3/uL (0-0.8); Eosinophils % (auto) 0.4 % (0.0-7.0); Hemoglobin 9.1 g/dL (12.2-16.2); Lymphocytes # (auto) 1.7 10 ^3/uL (0.4-5.4); Lymphocytes % (auto) 18.4 % (10.0-50.0); Mean Corpuscular Hemoglobin 30.7 pg (28.0-32.0); Mean Corpuscular Hgb Conc. 33.8 g/dL (32.0-36.0); Mean Corpuscular Volume 90.6 fL (80.0-100.0); Monocytes # (auto) 0.6 10 ^3/uL (0-1.3); Monocytes % (auto) 6.6 % (0.0-12.0); Neutrophils # (auto) 6.7 10 ^3/uL (1.6-8.6); Neutrophils % (auto) 74.1 % (37.0-80.0); Nucleated Red Blood Cells % 0.1 %; Red Blood Cells 2.98 10^6/uL (4.0-5.20); Red Cell Distribution Width 14.6 % (11.8-14.3)
[2021-05-23 07:19] LABS: Potassium 5.3 mmol/L (3.5-5.1)
[2021-05-23 07:48] LABS: Albumin 3.1 g/dL (3.4-5.0); BUN/Creatinine Ratio 28.7; Bilirubin, Total 0.2 mg/dL (0.2-1.0); Calcium 9.1 mg/dL (8.5-10.1); Total Protein 6.8 g/dL (6.4-8.2)
[2021-05-23] MEDS: FAMOTIDINE (10MG/ML) 2ML VL IV SCH (08:21)
[2021-05-23] MEDS ORDERED: ZINC SULFATE 220mg CAP or TAB PO SCH (10:00)
[2021-05-23] MEDS ORDERED: ASCORBIC ACID 500 MG TAB PO SCH (10:00)
[2021-05-23] MEDS ORDERED: MULTIPLE VITAMIN TAB PO SCH (10:00)
[2021-05-23] MEDS: HYDROcodone-ACET 5/325MG TAB PO PRN (11:04)
[2021-05-23] MEDS ORDERED: SODIUM ZIRCONIUM CYCL 10 GM PAK PO ONE (11:30)
[2021-05-23 21:36] VITALS: BP 154/70
[2021-05-23] MEDS ORDERED: InsuLIN REG 1unit/0.01ml Soln (100units/ml) SC SCH (22:00)
[2021-05-23] MEDS: hydrALAZINE HCL 25 MG TAB PO SCH ×2 (22:40→23:08)
[2021-05-23 23:34] VITALS: BP 178/73
[2021-05-24] MEDS ORDERED: HYDR50TA15 PO (00:29)
[2021-05-24] MEDS ORDERED: ATOR-47 PO (00:29)
[2021-05-24] MEDS ORDERED: OMEP-260 PO (00:29)
[2021-05-24] MEDS ORDERED: PNEUMOCOCCAL VACC POLYS 25 MCG/0.5 ML VIAL IM ONE (00:30)
[2021-05-24] MEDS ORDERED: INFLUENZA QUAD 2021-2022 0.5 ML SYRG IM ONE (00:30)
[2021-05-24 05:30] VITALS: BP 140/59
[2021-05-24] MEDS: ACETAMINOPHEN 325 MG TAB PO PRN (06:21)
[2021-05-24 06:25] LABS: Basophils # (auto) 0.1 10 ^3/uL (0-0.2); Basophils % (auto) 0.7 % (0.0-2.0); Eosinophils # (auto) 0.2 10 ^3/uL (0-0.8); Hematocrit 27.1 % (36.0-46.0); Hemoglobin 9.1 g/dL (12.2-16.2); Lymphocytes # (auto) 2.3 10 ^3/uL (0.4-5.4); Lymphocytes % (auto) 27.9 % (10.0-50.0); Mean Corpuscular Hgb Conc. 33.5 g/dL (32.0-36.0); Mean Corpuscular Volume 89.5 fL (80.0-100.0); Monocytes # (auto) 0.6 10 ^3/uL (0-1.3); Monocytes % (auto) 6.7 % (0.0-12.0); Neutrophils # (auto) 5.2 10 ^3/uL (1.6-8.6); Neutrophils % (auto) 62.7 % (37.0-80.0); Red Blood Cells 3.03 10^6/uL (4.0-5.20); Red Cell Distribution Width 14.1 % (11.8-14.3); White Blood Cell 8.3 10^3/uL (4.4-10.8)
[2021-05-24] MEDS: ACCU-CHEK COMFORT CURVE STRIP VI SCH ×4 (06:32→22:07)
[2021-05-24] MEDS: hydrALAZINE HCL 25 MG TAB PO SCH ×3 (06:32→22:09)
[2021-05-24] MEDS: InsuLIN REG 1unit/0.01ml Soln (100units/ml) SC SCH ×4 (06:32→22:07)
[2021-05-24 06:41] LABS: Calcium 8.6 mg/dL (8.5-10.1); Potassium 4.9 mmol/L (3.5-5.1)
[2021-05-24 06:48] LABS: Albumin 2.9 g/dL (3.4-5.0); BUN/Creatinine Ratio 30.2; Bilirubin, Total 0.2 mg/dL (0.2-1.0); Total Protein 6.3 g/dL (6.4-8.2)
[2021-05-24 09:00] VITALS: BP 131/61
[2021-05-24] MEDS: FAMOTIDINE (10MG/ML) 2ML VL IV SCH (09:49)
[2021-05-24] MEDS: HYDROcodone-ACET 5/325MG TAB PO PRN (09:50)
[2021-05-24 12:33] VITALS: BP 141/66
[2021-05-24 16:55] VITALS: BP 152/79
[2021-05-24 22:00] VITALS: BP 148/72
[2021-05-25 05:00] VITALS: BP 151/74
[2021-05-25] MEDS: hydrALAZINE HCL 25 MG TAB PO SCH ×3 (06:00→22:06)
[2021-05-25] MEDS: ACCU-CHEK COMFORT CURVE STRIP VI SCH ×4 (06:44→22:05)
[2021-05-25] MEDS: InsuLIN REG 1unit/0.01ml Soln (100units/ml) SC SCH ×4 (06:44→22:16)
[2021-05-25 09:00] VITALS: BP 159/74
[2021-05-25] MEDS: FAMOTIDINE (10MG/ML) 2ML VL IV SCH (09:48)
[2021-05-25] MEDS ORDERED: SODIUM ZIRCONIUM CYCL 10 GM PAK PO ONE ×2 (10:15→14:15)
[2021-05-25 13:00] VITALS: BP 150/68
[2021-05-25] MEDS ORDERED: DIPHENOXYLATE W/ATROPINE 2.5 MG TAB PO ONE (13:30)
[2021-05-25 17:00] VITALS: BP 142/54
[2021-05-25 22:00] VITALS: BP 131/70
[2021-05-25] MEDS: HYDROcodone-ACET 5/325MG TAB PO PRN (22:17)
[2021-05-26 05:00] VITALS: BP 119/50
[2021-05-26] MEDS ORDERED: SODIUM ZIRCONIUM CYCL 10 GM PAK PO ONE (06:00)
[2021-05-26] MEDS: hydrALAZINE HCL 25 MG TAB PO SCH ×2 (06:16→14:00)
[2021-05-26] MEDS: ACCU-CHEK COMFORT CURVE STRIP VI SCH ×2 (06:17→11:30)
[2021-05-26] MEDS: InsuLIN REG 1unit/0.01ml Soln (100units/ml) SC SCH ×2 (06:25→12:20)
[2021-05-26] MEDS: HYDROcodone-ACET 5/325MG TAB PO PRN (06:25)
[2021-05-26] MEDS: ACETAMINOPHEN 325 MG TAB PO PRN (08:45)
[2021-05-26 09:00] VITALS: BP 118/57
[2021-05-26] MEDS: FAMOTIDINE (10MG/ML) 2ML VL IV SCH (10:00)
[2021-05-26 11:56] VITALS: BP 119/57
[2021-05-26] MEDS ORDERED: PNEUMOCOCCAL VACC POLYS 25 MCG/0.5 ML VIAL IM ONE (13:45)
== END 2021-05-26 15:00 | disposition home or self-care (01) | DRG 641 ==
LOC: ER 13:15 → TELE 05-23 00:25 → TELE-WESTW 05-23 21:36 → WEST WING 05-25 14:06
PROVIDERS: ADMIT Nurse Practitioner Family; ATTEND Internal Medicine
DX: E87.5 Hyperkalemia (principal); N17.9 Acute kidney failure, unspecified; I12.9 Hypertensive chronic kidney disease with stage 1 through stage 4 chronic kidney disease, or unspecified chronic kidney disease; N18.31 Chronic kidney disease, stage 3a; Z20.822 Contact with and (suspected) exposure to COVID-19; E11.22 Type 2 diabetes mellitus with diabetic chronic kidney disease; E78.5 Hyperlipidemia, unspecified; E11.21 Type 2 diabetes mellitus with diabetic nephropathy; D63.1 Anemia in chronic kidney disease; T46.4X5A Adverse effect of angiotensin-converting-enzyme inhibitors, initial encounter; Z88.8 Allergy status to other drugs, medicaments and biological substances; Y92.89 Other specified places as the place of occurrence of the external cause; Z79.84 Long term (current) use of oral hypoglycemic drugs; Z79.899 Other long term (current) drug therapy; Z82.49 Family history of ischemic heart disease and other diseases of the circulatory system
CPT/HCPCS: 36415; 70450; 80053; 80061; 82962; 83036; 84132; 84484; 85025; 87426; 93005; 94644; 96361; 96365; 96372; 96375; G0378; J1815; J3490

== ENCOUNTER 2021-06-27 01:27 | Inpatient (IN) | payer MEDICARE, MEDICAID ==
[~2021-06-27] VITALS: Ht 160 cm; Wt 75.5 kg
[~2021-06-27 01:27] MED LIST changes: +ATOR-47 PO; +HYDR50TA15 PO; +OMEP-260 PO
[2021-06-27 03:00] LABS: Basophils # (auto) 0.1 10 ^3/uL (0-0.2); Basophils % (auto) 0.8 % (0.0-2.0); Eosinophils # (auto) 0 10 ^3/uL (0-0.8); Eosinophils % (auto) 0.1 % (0.0-7.0); Hemoglobin 9.1 g/dL (12.2-16.2); Lymphocytes # (auto) 0.9 10 ^3/uL (0.4-5.4); Mean Corpuscular Hemoglobin 28.6 pg (28.0-32.0); Mean Corpuscular Hgb Conc. 31.3 g/dL (32.0-36.0); Mean Corpuscular Volume 91.2 fL (80.0-100.0); Monocytes # (auto) 0.7 10 ^3/uL (0-1.3); Monocytes % (auto) 4.4 % (0.0-12.0); Neutrophils # (auto) 13.8 10 ^3/uL (1.6-8.6); Neutrophils % (auto) 88.7 % (37.0-80.0); Red Blood Cells 3.18 10^6/uL (4.0-5.20); Red Cell Distribution Width 13.4 % (11.8-14.3); White Blood Cell 15.5 10^3/uL (4.4-10.8)
[2021-06-27 03:21] LABS: Bilirubin, Total 0.4 mg/dL (0.2-1.0); Total Protein 8.1 g/dL (6.4-8.2)
[2021-06-27 03:25] LABS: INR 0.94 (0.9-1.15); Partial Thromboplastin Time 25.9 sec (23.6-33.0)
[2021-06-27 03:42] LABS: BUN/Creatinine Ratio 23.1
[2021-06-27 03:43] LABS: Albumin 3.3 g/dL (3.4-5.0); Calcium 8.3 mg/dL (8.5-10.1)
[2021-06-27 03:46] LABS: Potassium 6.2 mmol/L (3.5-5.1)
[2021-06-27] MEDS ORDERED: ALBUTEROL SULF 2.5 MG/0.5ML(0.5%) NEB SOLN NEB ONE (04:15)
[2021-06-27] MEDS ORDERED: SODIUM CHLORIDE 0.9% 500 ML IV ONE (04:15)
[2021-06-27] MEDS ORDERED: SODIUM BICARBONATE 8.4% INJ 50ML SYRINGE IV ONE (04:15)
[2021-06-27] MEDS ORDERED: CALCIUM GLUC 1,000mg/50ml-NS 50 ML IV ONE (04:15)
[2021-06-27] MEDS ORDERED: SODIUM ZIRCONIUM CYCL 10 GM PAK PO ONE (04:15)
[2021-06-27] MEDS ORDERED: InsuLIN REG 1unit/0.01ml Soln (100units/ml) IV ONE (04:15)
[2021-06-27] MEDS ORDERED: cefTRIAXone 1GM/50ML D5W 50 ML IV ONE (05:30)
[2021-06-27] MEDS ORDERED: AZITHROMYCIN 500MG/ 250ML 250 ML IV ONE (05:30)
[2021-06-27] MEDS ORDERED: HYDROcodone-ACET 5/325MG TAB PO PRN (06:15)
[2021-06-27] MEDS ORDERED: DEXTROSE (50%) 50ML SYRG IV PRN (06:15)
[2021-06-27] MEDS ORDERED: MORPHINE SULFATE INJECTION 2 MG/ML SYRG IV PRN (06:15)
[2021-06-27] MEDS ORDERED: DOCUSATE SOD 100 MG CAP PO PRN (06:15)
[2021-06-27] MEDS ORDERED: ACETAMINOPHEN 500 MG TAB PO PRN (06:15)
[2021-06-27] MEDS ORDERED: SODIUM CHLORIDE 0.9% 1,000 ML IV SCH (06:15)
[2021-06-27] MEDS ORDERED: ONDANSETRON HCL 4 MG/2 ML VIAL IV PRN (06:15)
[2021-06-27] MEDS ORDERED: NITROGLYCERIN 0.4 MG SL TAB SL PRN (06:15)
[2021-06-27] MEDS ORDERED: ALBUTEROL SULF HFA 90MCG INH 200DOSE IN PRN (06:15)
[2021-06-27] MEDS ORDERED: INSULIN LANTUS (GLARGINE) 1 /0.01ml (100units/ml) SC SCH (07:00)
[2021-06-27] MEDS: ACCU-CHEK COMFORT CURVE STRIP VI SCH ×4 (08:00→20:00)
[2021-06-27] MEDS: InsuLIN REG 1unit/0.01ml Soln (100units/ml) SC SCH ×4 (09:47→22:20)
[2021-06-27] MEDS ORDERED: FAMOTIDINE (10MG/ML) 2ML VL IV SCH ×2 (10:00→16:45)
[2021-06-27] MEDS ORDERED: BUDESONIDE (INHALATION) 180 MCG IH IN SCH (10:00)
[2021-06-27] MEDS: CHOLECALCIFEROL (VITD3) 2,000 UNIT CAP/TAB PO SCH (10:09)
[2021-06-27] MEDS: DexAMETHasone SOD PHOS 10MG/1ML VIAL INJ IV SCH (10:09)
[2021-06-27] MEDS: MULTIPLE VITAMIN TAB PO SCH (10:09)
[2021-06-27] MEDS: ASCORBIC ACID 1,000 MG TAB PO SCH (10:09)
[2021-06-27] MEDS: ZINC SULFATE 220mg CAP or TAB PO SCH (10:09)
[2021-06-27 10:38] VITALS: BP 132/57
[2021-06-27 13:12] LABS: Urine Bacteria FEW /hpf (None Seen); Urine Blood Negative /uL (Negative); Urine Specific Gravity 1.019 (1.001-1.035); Urine WBC 1 /hpf (0 - 5)
[2021-06-27] MEDS ORDERED: HEPARIN SODIUM (PORCINE) 5000 UNITS/ML 1ML VIAL SC SCH (14:00)
[2021-06-27] MEDS ORDERED: IPRATROPIUM BROM 0.5 MG/2.5ML INH SOL NEB PRN (16:30)
[2021-06-27] MEDS ORDERED: ALBUTEROL SULF 2.5 MG/0.5ML(0.5%) NEB SOLN NEB PRN (16:30)
[2021-06-27] MEDS ORDERED: AMLO-496 PO (17:43)
[2021-06-27] MEDS ORDERED: LATA0.0019 EACHEYE (17:43)
[2021-06-27] MEDS ORDERED: MECL-111 PO (17:43)
[2021-06-27 22:00] VITALS: BP 146/73
[2021-06-27] MEDS: INSULIN LANTUS (GLARGINE) 1 /0.01ml (100units/ml) SC SCH (22:22)
[2021-06-28] MEDS: InsuLIN REG 1unit/0.01ml Soln (100units/ml) SC SCH ×6 (00:49→20:00)
[2021-06-28 03:54] LABS: BUN/Creatinine Ratio 26.6; Calcium 8.4 mg/dL (8.5-10.1); Potassium 5.5 mmol/L (3.5-5.1)
[2021-06-28 04:00] LABS: Thyroid Stimulating Hormone 0.42 uIU/mL (0.358-3.74)
[2021-06-28 04:04] LABS: CRP High Sensitivity 13.9 mg/dL (< 0.3)
[2021-06-28] MEDS: ACCU-CHEK COMFORT CURVE STRIP VI SCH ×6 (04:24→20:00)
[2021-06-28 05:00] VITALS: BP 154/78
[2021-06-28] MEDS: INSULIN LANTUS (GLARGINE) 1 /0.01ml (100units/ml) SC SCH ×2 (06:19→22:00)
[2021-06-28 06:52] LABS: Basophils # (auto) 0.1 10 ^3/uL (0-0.2); Eosinophils # (auto) 0.1 10 ^3/uL (0-0.8); Eosinophils % (auto) 0.4 % (0.0-7.0); Hematocrit 22.8 % (36.0-46.0); Hemoglobin 7.5 g/dL (12.2-16.2); Lymphocytes % (auto) 13.1 % (10.0-50.0); Mean Corpuscular Hemoglobin 29.4 pg (28.0-32.0); Mean Corpuscular Volume 89.1 fL (80.0-100.0); Monocytes # (auto) 1.1 10 ^3/uL (0-1.3); Neutrophils # (auto) 11.9 10 ^3/uL (1.6-8.6); Neutrophils % (auto) 78.5 % (37.0-80.0); Nucleated Red Blood Cells % 0.4 %; Red Blood Cells 2.56 10^6/uL (4.0-5.20); Red Cell Distribution Width 13.8 % (11.8-14.3); White Blood Cell 15.2 10^3/uL (4.4-10.8)
[2021-06-28 07:00] LABS: Calcium 8.5 mg/dL (8.5-10.1); Magnesium 2.9 mg/dL (1.6-2.6); Potassium 5.2 mmol/L (3.5-5.1)
[2021-06-28 07:04] LABS: BUN/Creatinine Ratio 32.4; Bilirubin, Total 0.2 mg/dL (0.2-1.0); Total Protein 6.6 g/dL (6.4-8.2)
[2021-06-28] MEDS: cefTRIAXone 1GM/50ML D5W 50 ML IV SCH (08:26)
[2021-06-28 09:00] VITALS: BP 169/82
[2021-06-28] MEDS: DexAMETHasone SOD PHOS 10MG/1ML VIAL INJ IV SCH (09:33)
[2021-06-28] MEDS: FAMOTIDINE (10MG/ML) 2ML VL IV SCH (09:33)
[2021-06-28] MEDS: ASCORBIC ACID 1,000 MG TAB PO SCH (09:34)
[2021-06-28] MEDS: CHOLECALCIFEROL (VITD3) 2,000 UNIT CAP/TAB PO SCH (09:34)
[2021-06-28] MEDS: ZINC SULFATE 220mg CAP or TAB PO SCH (09:34)
[2021-06-28] MEDS: AZITHROMYCIN 500MG/ 250ML 250 ML IV SCH (09:34)
[2021-06-28] MEDS: MULTIPLE VITAMIN TAB PO SCH (09:34)
[2021-06-28 13:00] VITALS: BP 174/84
[2021-06-28] MEDS ORDERED: amLODIPine BESYLATE 5 MG TAB PO ONE (15:30)
[2021-06-28] MEDS ORDERED: FUROSEMIDE 40 MG/4 ML VIAL IV ONE (16:15)
[2021-06-28 17:00] VITALS: BP 188/91
[2021-06-28 18:46] VITALS: BP 168/84
[2021-06-28 22:00] VITALS: BP 189/84
[2021-06-29] MEDS: ACCU-CHEK COMFORT CURVE STRIP VI SCH ×6 (04:00→20:09)
[2021-06-29] MEDS: InsuLIN REG 1unit/0.01ml Soln (100units/ml) SC SCH ×6 (04:00→20:00)
[2021-06-29 05:00] VITALS: BP 144/79
[2021-06-29 05:47] LABS: Basophils # (auto) 0 10 ^3/uL (0-0.2); Eosinophils # (auto) 0 10 ^3/uL (0-0.8); Hematocrit 25.1 % (36.0-46.0); Monocytes # (auto) 0.9 10 ^3/uL (0-1.3); White Blood Cell 11.1 10^3/uL (4.4-10.8)
[2021-06-29 05:51] LABS: Basophils % (auto) 0.3 % (0.0-2.0); Eosinophils % (auto) 0.2 % (0.0-7.0); Hemoglobin 8.3 g/dL (12.2-16.2); Lymphocytes # (auto) 1.8 10 ^3/uL (0.4-5.4); Lymphocytes % (auto) 16.1 % (10.0-50.0); Mean Corpuscular Hemoglobin 28.9 pg (28.0-32.0); Mean Corpuscular Hgb Conc. 33.2 g/dL (32.0-36.0); Mean Corpuscular Volume 87.1 fL (80.0-100.0); Monocytes % (auto) 7.9 % (0.0-12.0); Neutrophils # (auto) 8.4 10 ^3/uL (1.6-8.6); Neutrophils % (auto) 75.5 % (37.0-80.0); Red Blood Cells 2.89 10^6/uL (4.0-5.20); Red Cell Distribution Width 13.4 % (11.8-14.3)
[2021-06-29 06:06] LABS: Calcium 8.2 mg/dL (8.5-10.1); Potassium 4.4 mmol/L (3.5-5.1)
[2021-06-29 06:16] LABS: Ferritin 68.2 ng/mL (10-322)
[2021-06-29] MEDS: INSULIN LANTUS (GLARGINE) 1 /0.01ml (100units/ml) SC SCH ×2 (06:41→21:51)
[2021-06-29] MEDS: cefTRIAXone 1GM/50ML D5W 50 ML IV SCH (08:09)
[2021-06-29 09:05] VITALS: BP 157/81
[2021-06-29] MEDS ORDERED: FUROSEMIDE 40 MG/4 ML VIAL IV SCH (10:00)
[2021-06-29] MEDS: AZITHROMYCIN 500MG/ 250ML 250 ML IV SCH (10:17)
[2021-06-29] MEDS: MULTIPLE VITAMIN TAB PO SCH (10:17)
[2021-06-29] MEDS: FAMOTIDINE (10MG/ML) 2ML VL IV SCH (10:17)
[2021-06-29] MEDS: CHOLECALCIFEROL (VITD3) 2,000 UNIT CAP/TAB PO SCH (10:18)
[2021-06-29] MEDS: amLODIPine BESYLATE 5 MG TAB PO SCH (10:18)
[2021-06-29 12:45] VITALS: BP 148/81
[2021-06-29] MEDS ORDERED: ENOXAPARIN SOD 80 MG/0.8ML SYRINGE SC ONE (15:30)
[2021-06-29 17:32] VITALS: BP 137/84
[2021-06-29 20:07] LABS: Hematocrit 26.9 % (36.0-46.0)
[2021-06-29 21:26] LABS: Hematocrit 25.5 % (36.0-46.0); Hemoglobin 8.6 g/dL (12.2-16.2)
[2021-06-29 22:00] VITALS: BP 128/73
[2021-06-30 02:59] LABS: Hemoglobin 8.8 g/dL (12.2-16.2)
[2021-06-30] MEDS: InsuLIN REG 1unit/0.01ml Soln (100units/ml) SC SCH ×5 (04:00→18:00)
[2021-06-30] MEDS: ACCU-CHEK COMFORT CURVE STRIP VI SCH ×5 (04:00→18:57)
[2021-06-30 05:00] VITALS: BP 162/80
[2021-06-30] MEDS: INSULIN LANTUS (GLARGINE) 1 /0.01ml (100units/ml) SC SCH ×2 (06:51→21:42)
[2021-06-30 07:57] LABS: Basophils # (auto) 0.1 10 ^3/uL (0-0.2); Basophils % (auto) 0.8 % (0.0-2.0); Eosinophils # (auto) 0.2 10 ^3/uL (0-0.8); Eosinophils % (auto) 2.5 % (0.0-7.0); Hematocrit 29.1 % (36.0-46.0); Hemoglobin 9.8 g/dL (12.2-16.2); Lymphocytes # (auto) 1.7 10 ^3/uL (0.4-5.4); Lymphocytes % (auto) 19.5 % (10.0-50.0); Mean Corpuscular Hemoglobin 29.4 pg (28.0-32.0); Mean Corpuscular Hgb Conc. 33.7 g/dL (32.0-36.0); Mean Corpuscular Volume 87.1 fL (80.0-100.0); Monocytes # (auto) 0.8 10 ^3/uL (0-1.3); Monocytes % (auto) 9.6 % (0.0-12.0); Neutrophils # (auto) 5.9 10 ^3/uL (1.6-8.6); Neutrophils % (auto) 67.6 % (37.0-80.0); Red Blood Cells 3.33 10^6/uL (4.0-5.20); Red Cell Distribution Width 13.3 % (11.8-14.3); White Blood Cell 8.8 10^3/uL (4.4-10.8)
[2021-06-30 08:09] LABS: Potassium 4.1 mmol/L (3.5-5.1)
[2021-06-30 08:19] LABS: Albumin 2.9 g/dL (3.4-5.0); BUN/Creatinine Ratio 27.2; Bilirubin, Total 0.2 mg/dL (0.2-1.0); Calcium 8.1 mg/dL (8.5-10.1); Total Protein 6.8 g/dL (6.4-8.2)
[2021-06-30 08:30] VITALS: BP 144/68
[2021-06-30] MEDS: cefTRIAXone 1GM/50ML D5W 50 ML IV SCH (08:53)
[2021-06-30 11:08] LABS: Folate (Folic Acid) 11.12 ng/mL (5.38-24)
[2021-06-30] MEDS: MULTIPLE VITAMIN TAB PO SCH (11:15)
[2021-06-30] MEDS: amLODIPine BESYLATE 5 MG TAB PO SCH (11:16)
[2021-06-30] MEDS: CHOLECALCIFEROL (VITD3) 2,000 UNIT CAP/TAB PO SCH (11:16)
[2021-06-30] MEDS: FAMOTIDINE (10MG/ML) 2ML VL IV SCH (12:27)
[2021-06-30] MEDS: AZITHROMYCIN 500MG/ 250ML 250 ML IV SCH (12:27)
[2021-06-30 13:22] VITALS: BP 138/77
[2021-06-30] MEDS ORDERED: DEXTROSE (50%) 50ML SYRG IV PRN (13:45)
[2021-06-30 22:00] VITALS: BP 152/76
[2021-07-01] MEDS: InsuLIN REG 1unit/0.01ml Soln (100units/ml) SC SCH ×5 (01:32→23:42)
[2021-07-01 04:58] VITALS: BP 155/79
[2021-07-01] MEDS: ACCU-CHEK COMFORT CURVE STRIP VI SCH ×5 (05:48→23:42)
[2021-07-01 05:52] LABS: Basophils # (auto) 0.1 10 ^3/uL (0-0.2); Basophils % (auto) 0.6 % (0.0-2.0); Eosinophils # (auto) 0.2 10 ^3/uL (0-0.8); Eosinophils % (auto) 2.1 % (0.0-7.0); Hematocrit 28.9 % (36.0-46.0); Hemoglobin 9.7 g/dL (12.2-16.2); Lymphocytes # (auto) 2.2 10 ^3/uL (0.4-5.4); Lymphocytes % (auto) 21.6 % (10.0-50.0); Mean Corpuscular Hemoglobin 29.3 pg (28.0-32.0); Mean Corpuscular Hgb Conc. 33.7 g/dL (32.0-36.0); Monocytes % (auto) 9.8 % (0.0-12.0); Neutrophils # (auto) 6.6 10 ^3/uL (1.6-8.6); Neutrophils % (auto) 65.9 % (37.0-80.0); Red Blood Cells 3.32 10^6/uL (4.0-5.20); Red Cell Distribution Width 13.2 % (11.8-14.3)
[2021-07-01 06:08] LABS: Albumin 2.8 g/dL (3.4-5.0); BUN/Creatinine Ratio 27.4; Calcium 8.2 mg/dL (8.5-10.1)
[2021-07-01 06:11] LABS: Bilirubin, Total 0.2 mg/dL (0.2-1.0); Total Protein 6.6 g/dL (6.4-8.2)
[2021-07-01] MEDS: INSULIN LANTUS (GLARGINE) 1 /0.01ml (100units/ml) SC SCH ×2 (06:47→21:59)
[2021-07-01] MEDS: cefTRIAXone 1GM/50ML D5W 50 ML IV SCH (09:00)
[2021-07-01] MEDS: FAMOTIDINE (10MG/ML) 2ML VL IV SCH ×2 (10:00→10:09)
[2021-07-01] MEDS: AZITHROMYCIN 500MG/ 250ML 250 ML IV SCH (10:00)
[2021-07-01] MEDS: MULTIPLE VITAMIN TAB PO SCH (10:09)
[2021-07-01] MEDS: CHOLECALCIFEROL (VITD3) 2,000 UNIT CAP/TAB PO SCH (10:10)
[2021-07-01] MEDS: amLODIPine BESYLATE 5 MG TAB PO SCH (10:19)
[2021-07-01 16:58] VITALS: BP 157/74
[2021-07-01 22:00] VITALS: BP 148/62
[2021-07-02 05:00] VITALS: BP 148/72
[2021-07-02] MEDS: InsuLIN REG 1unit/0.01ml Soln (100units/ml) SC SCH ×3 (05:04→17:53)
[2021-07-02] MEDS: INSULIN LANTUS (GLARGINE) 1 /0.01ml (100units/ml) SC SCH (05:04)
[2021-07-02] MEDS: ACCU-CHEK COMFORT CURVE STRIP VI SCH ×3 (05:04→17:47)
[2021-07-02 06:59] LABS: Potassium 4.1 mmol/L (3.5-5.1)
[2021-07-02 07:04] LABS: BUN/Creatinine Ratio 25.5; Calcium 8.3 mg/dL (8.5-10.1)
[2021-07-02 09:00] VITALS: BP 167/78
[2021-07-02] MEDS: FAMOTIDINE (10MG/ML) 2ML VL IV SCH (09:24)
[2021-07-02] MEDS: MULTIPLE VITAMIN TAB PO SCH (09:24)
[2021-07-02] MEDS: cefTRIAXone 1GM/50ML D5W 50 ML IV SCH (09:24)
[2021-07-02] MEDS: CHOLECALCIFEROL (VITD3) 2,000 UNIT CAP/TAB PO SCH (09:25)
[2021-07-02] MEDS: amLODIPine BESYLATE 5 MG TAB PO SCH (09:25)
[2021-07-02] MEDS: AZITHROMYCIN 500MG/ 250ML 250 ML IV SCH (10:00)
[2021-07-02 13:00] VITALS: BP 145/75
== END 2021-07-02 19:15 | disposition home health service (06) | DRG 871 ==
LOC: ER 01:27 → EDBD 01:27 → TELE 06:14 → TELE-WESTW 20:30
PROVIDERS: ADMIT Nurse Practitioner Family; ATTEND Internal Medicine
PROC: 05HD33Z Insertion of Infusion Device into Right Cephalic Vein, Percutaneous Approach (ICD-10-PCS; principal; 2021-07-01)
PROC: B54MZZA Ultrasonography of Right Upper Extremity Veins, Guidance (ICD-10-PCS; 2021-07-01)
DX: A41.89 Other specified sepsis (principal); J96.01 Acute respiratory failure with hypoxia; N17.0 Acute kidney failure with tubular necrosis; I50.43 Acute on chronic combined systolic (congestive) and diastolic (congestive) heart failure; J12.89 Other viral pneumonia; I13.0 Hypertensive heart and chronic kidney disease with heart failure and stage 1 through stage 4 chronic kidney disease, or unspecified chronic kidney disease; D68.59 Other primary thrombophilia; E11.65 Type 2 diabetes mellitus with hyperglycemia; E87.5 Hyperkalemia; E87.8 Other disorders of electrolyte and fluid balance, not elsewhere classified; D64.9 Anemia, unspecified; Z20.822 Contact with and (suspected) exposure to COVID-19; E04.2 Nontoxic multinodular goiter; E11.22 Type 2 diabetes mellitus with diabetic chronic kidney disease; E55.9 Vitamin D deficiency, unspecified; D63.8 Anemia in other chronic diseases classified elsewhere; K76.0 Fatty (change of) liver, not elsewhere classified; E66.9 Obesity, unspecified; E78.5 Hyperlipidemia, unspecified; N18.9 Chronic kidney disease, unspecified; E78.00 Pure hypercholesterolemia, unspecified; K21.9 Gastro-esophageal reflux disease without esophagitis; Z68.28 Body mass index [BMI] 28.0-28.9, adult; Z82.49 Family history of ischemic heart disease and other diseases of the circulatory system; Z83.3 Family history of diabetes mellitus; Z88.8 Allergy status to other drugs, medicaments and biological substances
CPT/HCPCS: 36415; 36600; 71045; 71250; 71275; 76536; 78582; 80048; 80053; 81001; 82306; 82607; 82728; 82746; 82805; 82962; 83036; 83540; 83550; 83605; 83615; 83735; 83880; 84443; 84484; 85014; 85018; 85025; 85045; 85379; 85610; 85730; 86141; 87040; 87426; 93005; 93306; 93970; 94640; 96361; 96365; 96368; 96372; 96375; 97163; G0378; J0696; J1100; J1815; J3490

== ENCOUNTER 2021-08-08 12:38 | Inpatient (IN) | payer MEDICARE, MEDICAID ==
[~2021-08-08] VITALS: Ht 154.9 cm; Wt 70.0 kg
[~2021-08-08 12:38] MED LIST changes: -AML5T PO; +AMLO-496 PO; -ATO40T PO; -CETI10CA10 PO; +LATA0.0019 EACHEYE; -LISI-716 PO; +MECL-111 PO; -METF-370 PO; -PANT40TA2 PO
[2021-08-08 16:39] LABS: Basophils # (auto) 0.1 10 ^3/uL (0-0.2); Basophils % (auto) 0.7 % (0.0-2.0); Eosinophils # (auto) 0.1 10 ^3/uL (0-0.8); Eosinophils % (auto) 0.7 % (0.0-7.0); Hematocrit 35.1 % (36.0-46.0); Hemoglobin 11.3 g/dL (12.2-16.2); Lymphocytes # (auto) 1.9 10 ^3/uL (0.4-5.4); Lymphocytes % (auto) 17.2 % (10.0-50.0); Mean Corpuscular Hemoglobin 27.5 pg (28.0-32.0); Mean Corpuscular Hgb Conc. 32.2 g/dL (32.0-36.0); Mean Corpuscular Volume 85.5 fL (80.0-100.0); Monocytes # (auto) 0.6 10 ^3/uL (0-1.3); Monocytes % (auto) 5.1 % (0.0-12.0); Neutrophils # (auto) 8.6 10 ^3/uL (1.6-8.6); Neutrophils % (auto) 76.3 % (37.0-80.0); Nucleated Red Blood Cells % 0.1 %; Red Blood Cells 4.11 10^6/uL (4.0-5.20); White Blood Cell 11.3 10^3/uL (4.4-10.8)
[2021-08-08 16:54] LABS: Albumin 3.7 g/dL (3.4-5.0); Calcium 9.3 mg/dL (8.5-10.1)
[2021-08-08 17:00] LABS: BUN/Creatinine Ratio 13.1; Bilirubin, Total 0.3 mg/dL (0.2-1.0); Total Protein 8.9 g/dL (6.4-8.2)
[2021-08-08 17:12] LABS: Potassium 5.6 mmol/L (3.5-5.1)
[2021-08-08] MEDS ORDERED: DOCUSATE SOD 100 MG CAP PO PRN (23:30)
[2021-08-08] MEDS ORDERED: HYDROcodone-ACET 5/325MG TAB PO PRN (23:30)
[2021-08-08] MEDS ORDERED: ONDANSETRON HCL 4 MG/2 ML VIAL IV PRN (23:30)
[2021-08-08] MEDS ORDERED: DEXTROSE (50%) 50ML SYRG IV PRN (23:30)
[2021-08-08] MEDS ORDERED: ACETAMINOPHEN 325 MG TAB PO PRN (23:30)
[2021-08-09] VITALS (7 sets, daily range): BP systolic 124–148; BP diastolic 58–96
[2021-08-09] MEDS ORDERED: MORPHINE SULFATE INJECTION 2 MG/ML SYRG IV PRN (00:15)
[2021-08-09] MEDS ORDERED: NITROGLYCERIN 0.4 MG SL TAB SL PRN (00:15)
[2021-08-09] MEDS ORDERED: FUROSEMIDE 20 MG/2 ML VIAL IV ONE (00:15)
[2021-08-09] MEDS ORDERED: SODIUM ZIRCONIUM CYCL 10 GM PAK PO ONE (00:15)
[2021-08-09] MEDS ORDERED: SODIUM BICARBONATE 8.4% INJ 50ML SYRINGE IV ONE (00:15)
[2021-08-09] MEDS: cefTRIAXone 1GM/50ML D5W 50 ML IV SCH ×2 (01:19→22:11)
[2021-08-09] MEDS: ACCU-CHEK COMFORT CURVE STRIP VI SCH ×6 (01:20→22:25)
[2021-08-09] MEDS: InsuLIN REG 1unit/0.01ml Soln (100units/ml) SC SCH ×6 (01:20→22:18)
[2021-08-09] MEDS ORDERED: ALBUTEROL SULF 2.5 MG/0.5ML(0.5%) NEB SOLN NEB ONE (01:30)
[2021-08-09] MEDS ORDERED: IPRATROPIUM BROM 0.5 MG/2.5ML INH SOL NEB ONE (01:30)
[2021-08-09] MEDS: SODIUM CHLOR 0.9% PF (SALINE LOCK) 10ML VIAL/SYR IV SCH ×3 (05:14→22:19)
[2021-08-09 05:53] LABS: Basophils # (auto) 0 10 ^3/uL (0-0.2); Basophils % (auto) 0.4 % (0.0-2.0); Eosinophils # (auto) 0.1 10 ^3/uL (0-0.8); Eosinophils % (auto) 0.6 % (0.0-7.0); Hematocrit 28.2 % (36.0-46.0); Hemoglobin 9.4 g/dL (12.2-16.2); Lymphocytes # (auto) 2.2 10 ^3/uL (0.4-5.4); Lymphocytes % (auto) 20.9 % (10.0-50.0); Mean Corpuscular Hemoglobin 28.3 pg (28.0-32.0); Mean Corpuscular Hgb Conc. 33.5 g/dL (32.0-36.0); Mean Corpuscular Volume 84.5 fL (80.0-100.0); Monocytes # (auto) 0.7 10 ^3/uL (0-1.3); Monocytes % (auto) 7.2 % (0.0-12.0); Neutrophils # (auto) 7.3 10 ^3/uL (1.6-8.6); Neutrophils % (auto) 70.9 % (37.0-80.0); Red Blood Cells 3.34 10^6/uL (4.0-5.20); Red Cell Distribution Width 13.7 % (11.8-14.3); White Blood Cell 10.3 10^3/uL (4.4-10.8)
[2021-08-09 06:08] LABS: Albumin 2.9 g/dL (3.4-5.0); Calcium 8.5 mg/dL (8.5-10.1); Potassium 3.9 mmol/L (3.5-5.1)
[2021-08-09 06:15] LABS: BUN/Creatinine Ratio 16.8; Bilirubin, Total 0.1 mg/dL (0.2-1.0); Total Protein 7.2 g/dL (6.4-8.2)
[2021-08-09] MEDS: FAMOTIDINE (10MG/ML) 2ML VL IV SCH (10:00)
[2021-08-09] MEDS: MULTIPLE VITAMIN TAB PO SCH (10:00)
[2021-08-09] MEDS: ZINC SULFATE 220mg CAP or TAB PO SCH (10:00)
[2021-08-09] MEDS: ASCORBIC ACID 500 MG TAB PO SCH ×2 (10:00→22:12)
[2021-08-09] MEDS: INSULIN LANTUS (GLARGINE) 1 /0.01ml (100units/ml) SC SCH (10:00)
[2021-08-09] MEDS: HEPARIN SODIUM (PORCINE) 5000 UNITS/ML 1ML VIAL SC SCH ×2 (10:00→22:17)
[2021-08-09] MEDS ORDERED: CLOTRIMAZOLE 1 % CREAM 15GM TOP ONE (15:30)
[2021-08-09 16:33] LABS: Urine Bacteria FEW /hpf (None Seen); Urine Blood Negative /uL (Negative); Urine Specific Gravity 1.008 (1.001-1.035); Urine WBC 44 /hpf (0 - 5)
[2021-08-09] MEDS: CLOTRIMAZOLE 1 % CREAM 15GM TOP SCH (22:12)
[2021-08-09] MEDS: ATORVASTATIN 20 MG TAB PO SCH (22:12)
[2021-08-10 05:10] VITALS: BP 131/56
[2021-08-10 05:40] LABS: Basophils # (auto) 0.1 10 ^3/uL (0-0.2); Basophils % (auto) 0.9 % (0.0-2.0); Eosinophils # (auto) 0.1 10 ^3/uL (0-0.8); Eosinophils % (auto) 1.7 % (0.0-7.0); Hematocrit 29.8 % (36.0-46.0); Lymphocytes # (auto) 2.2 10 ^3/uL (0.4-5.4); Lymphocytes % (auto) 27.9 % (10.0-50.0); Mean Corpuscular Hemoglobin 28.6 pg (28.0-32.0); Mean Corpuscular Hgb Conc. 33.7 g/dL (32.0-36.0); Mean Corpuscular Volume 84.7 fL (80.0-100.0); Monocytes # (auto) 0.6 10 ^3/uL (0-1.3); Monocytes % (auto) 7.9 % (0.0-12.0); Neutrophils # (auto) 4.7 10 ^3/uL (1.6-8.6); Neutrophils % (auto) 61.6 % (37.0-80.0); Nucleated Red Blood Cells % 0.1 %; Red Blood Cells 3.52 10^6/uL (4.0-5.20); Red Cell Distribution Width 13.7 % (11.8-14.3); White Blood Cell 7.7 10^3/uL (4.4-10.8)
[2021-08-10] MEDS ORDERED: FLUCONAZOLE 100 MG TAB PO ONE (05:45)
[2021-08-10] MEDS ORDERED: IPRATROPIUM BROM 0.5 MG/2.5ML INH SOL NEB ONE (05:45)
[2021-08-10 05:51] LABS: INR 0.94 (0.9-1.15); Partial Thromboplastin Time 24.9 sec (23.6-33.0)
[2021-08-10 06:01] LABS: Potassium 4.5 mmol/L (3.5-5.1)
[2021-08-10] MEDS: ACCU-CHEK COMFORT CURVE STRIP VI SCH ×6 (06:02→21:08)
[2021-08-10] MEDS: SODIUM CHLOR 0.9% PF (SALINE LOCK) 10ML VIAL/SYR IV SCH ×3 (06:02→21:09)
[2021-08-10] MEDS: InsuLIN REG 1unit/0.01ml Soln (100units/ml) SC SCH ×6 (06:02→21:08)
[2021-08-10 06:26] LABS: Albumin 2.7 g/dL (3.4-5.0); BUN/Creatinine Ratio 14.2; Bilirubin, Total 0.2 mg/dL (0.2-1.0); Calcium 8.5 mg/dL (8.5-10.1); Phosphorus 4.4 mg/dL (2.5-4.90)
[2021-08-10 09:00] VITALS: BP 138/69
[2021-08-10] MEDS: MULTIPLE VITAMIN TAB PO SCH (10:00)
[2021-08-10] MEDS: ASCORBIC ACID 500 MG TAB PO SCH ×2 (10:13→21:10)
[2021-08-10] MEDS: CLOTRIMAZOLE 1 % CREAM 15GM TOP SCH ×2 (10:13→21:10)
[2021-08-10] MEDS: ZINC SULFATE 220mg CAP or TAB PO SCH (10:13)
[2021-08-10] MEDS: FAMOTIDINE (10MG/ML) 2ML VL IV SCH (10:13)
[2021-08-10] MEDS: INSULIN LANTUS (GLARGINE) 1 /0.01ml (100units/ml) SC SCH (10:24)
[2021-08-10] MEDS: HEPARIN SODIUM (PORCINE) 5000 UNITS/ML 1ML VIAL SC SCH (10:24)
[2021-08-10] MEDS: IPRATROPIUM BROM 0.5 MG/2.5ML INH SOL NEB SCH ×3 (10:32→22:20)
[2021-08-10 12:33] VITALS: BP 145/68
[2021-08-10 17:00] VITALS: BP 139/71
[2021-08-10 20:00] VITALS: BP 141/79
[2021-08-10] MEDS: cefTRIAXone 1GM/50ML D5W 50 ML IV SCH (21:08)
[2021-08-10] MEDS: ATORVASTATIN 20 MG TAB PO SCH (21:10)
[2021-08-10 22:00] VITALS: BP 141/79
[2021-08-11] MEDS: InsuLIN REG 1unit/0.01ml Soln (100units/ml) SC SCH ×3 (01:01→08:00)
[2021-08-11] MEDS: ACCU-CHEK COMFORT CURVE STRIP VI SCH ×3 (01:01→08:16)
[2021-08-11] MEDS: IPRATROPIUM BROM 0.5 MG/2.5ML INH SOL NEB SCH ×3 (02:36→11:14)
[2021-08-11 05:16] VITALS: BP 134/61
[2021-08-11 06:07] LABS: Basophils # (auto) 0.1 10 ^3/uL (0-0.2); Basophils % (auto) 0.9 % (0.0-2.0); Eosinophils # (auto) 0.2 10 ^3/uL (0-0.8); Hematocrit 32.2 % (36.0-46.0); Hemoglobin 10.7 g/dL (12.2-16.2); Lymphocytes # (auto) 2.8 10 ^3/uL (0.4-5.4); Lymphocytes % (auto) 36.1 % (10.0-50.0); Mean Corpuscular Hemoglobin 28.3 pg (28.0-32.0); Mean Corpuscular Hgb Conc. 33.2 g/dL (32.0-36.0); Mean Corpuscular Volume 85.2 fL (80.0-100.0); Monocytes # (auto) 0.7 10 ^3/uL (0-1.3); Monocytes % (auto) 8.6 % (0.0-12.0); Neutrophils # (auto) 4.1 10 ^3/uL (1.6-8.6); Neutrophils % (auto) 52.4 % (37.0-80.0); Nucleated Red Blood Cells % 0.1 %; Red Blood Cells 3.78 10^6/uL (4.0-5.20); Red Cell Distribution Width 13.5 % (11.8-14.3); White Blood Cell 7.8 10^3/uL (4.4-10.8)
[2021-08-11 06:26] LABS: Albumin 2.9 g/dL (3.4-5.0); Calcium 8.5 mg/dL (8.5-10.1); Potassium 4.4 mmol/L (3.5-5.1)
[2021-08-11 06:36] LABS: BUN/Creatinine Ratio 14.4; Bilirubin, Total 0.1 mg/dL (0.2-1.0); Phosphorus 4.3 mg/dL (2.5-4.90); Total Protein 7.1 g/dL (6.4-8.2)
[2021-08-11 06:38] LABS: INR 0.93 (0.9-1.15); Partial Thromboplastin Time 24.7 sec (23.6-33.0)
[2021-08-11] MEDS: SODIUM CHLOR 0.9% PF (SALINE LOCK) 10ML VIAL/SYR IV SCH (07:06)
[2021-08-11 09:00] VITALS: BP 144/72
[2021-08-11] MEDS ORDERED: HALOPERIDOL LACTATE 5 MG/ML INJ VIAL ONE (09:26)
[2021-08-11] MEDS ORDERED: ENOXAPARIN SOD 40 MG/0.4 ML SYRINGE SC SCH ×2 (10:00)
[2021-08-11] MEDS ORDERED: FLUCONAZOLE 100 MG TAB PO SCH (10:00)
[2021-08-11] MEDS: ZINC SULFATE 220mg CAP or TAB PO SCH (10:25)
[2021-08-11] MEDS: CLOTRIMAZOLE 1 % CREAM 15GM TOP SCH (10:25)
[2021-08-11] MEDS: ASCORBIC ACID 500 MG TAB PO SCH (10:25)
[2021-08-11] MEDS: FAMOTIDINE (10MG/ML) 2ML VL IV SCH (10:26)
[2021-08-11] MEDS: INSULIN LANTUS (GLARGINE) 1 /0.01ml (100units/ml) SC SCH (10:31)
[2021-08-11 12:07] VITALS: BP 144/74
[2021-08-11 13:00] VITALS: BP 131/71
== END 2021-08-11 13:24 | disposition home or self-care (01) | DRG 682 ==
LOC: ER 12:38 → OVERFLOW 08-09 00:14 → CENTRAL 08-09 02:35
PROVIDERS: ADMIT Nurse Practitioner Family; ATTEND Internal Medicine
DX: N17.0 Acute kidney failure with tubular necrosis (principal); I50.33 Acute on chronic diastolic (congestive) heart failure; J96.20 Acute and chronic respiratory failure, unspecified whether with hypoxia or hypercapnia; J44.1 Chronic obstructive pulmonary disease with (acute) exacerbation; I13.0 Hypertensive heart and chronic kidney disease with heart failure and stage 1 through stage 4 chronic kidney disease, or unspecified chronic kidney disease; N39.0 Urinary tract infection, site not specified; I16.9 Hypertensive crisis, unspecified; E11.65 Type 2 diabetes mellitus with hyperglycemia; D72.829 Elevated white blood cell count, unspecified; E87.5 Hyperkalemia; N18.32 Chronic kidney disease, stage 3b; E11.21 Type 2 diabetes mellitus with diabetic nephropathy; E78.5 Hyperlipidemia, unspecified; E11.40 Type 2 diabetes mellitus with diabetic neuropathy, unspecified; E11.22 Type 2 diabetes mellitus with diabetic chronic kidney disease; E04.1 Nontoxic single thyroid nodule; K21.9 Gastro-esophageal reflux disease without esophagitis; B37.3 Candidiasis of vulva and vagina; Z20.822 Contact with and (suspected) exposure to COVID-19; Z88.6 Allergy status to analgesic agent
CPT/HCPCS: 36415; 71045; 80053; 80061; 81001; 82962; 83036; 83735; 83880; 83970; 84100; 84484; 85025; 85379; 85610; 85730; 86703; 87081; 87086; 87088; 87186; 87426; 93005; 94640; 96374; 96375; G0378; J0696; J1815; J3490

== ENCOUNTER 2021-09-03 00:18 | Inpatient (IN) | payer MEDICARE, MEDICAID ==
[~2021-09-03] VITALS: Ht 147.3 cm; Wt 72.5 kg
[2021-09-03 01:46] LABS: Basophils # (auto) 0.1 10 ^3/uL (0-0.2); Basophils % (auto) 0.8 % (0.0-2.0); Eosinophils # (auto) 0.2 10 ^3/uL (0-0.8); Hematocrit 30.5 % (36.0-46.0); Hemoglobin 9.7 g/dL (12.2-16.2); Lymphocytes # (auto) 1.7 10 ^3/uL (0.4-5.4); Lymphocytes % (auto) 17.6 % (10.0-50.0); Mean Corpuscular Hemoglobin 27.1 pg (28.0-32.0); Mean Corpuscular Hgb Conc. 31.9 g/dL (32.0-36.0); Monocytes # (auto) 0.7 10 ^3/uL (0-1.3); Monocytes % (auto) 6.9 % (0.0-12.0); Neutrophils # (auto) 7.1 10 ^3/uL (1.6-8.6); Neutrophils % (auto) 72.7 % (37.0-80.0); Nucleated Red Blood Cells % 0.1 %; Red Blood Cells 3.59 10^6/uL (4.0-5.20); Red Cell Distribution Width 14.4 % (11.8-14.3); White Blood Cell 9.8 10^3/uL (4.4-10.8)
[2021-09-03 03:01] LABS: Albumin 3.4 g/dL (3.4-5.0); BUN/Creatinine Ratio 17.6; Bilirubin, Total 0.3 mg/dL (0.2-1.0); Calcium 8.6 mg/dL (8.5-10.1); Magnesium 2.7 mg/dL (1.6-2.6); Total Protein 7.9 g/dL (6.4-8.2)
[2021-09-03] MEDS ORDERED: SODIUM CHLORIDE 0.9% 1,000 ML IV ONE (07:30)
[2021-09-03 08:47] LABS: Urine Bacteria FEW /hpf (None Seen); Urine Blood Negative /uL (Negative); Urine Hyaline Cast FEW /lpf (0 - 2); Urine Specific Gravity 1.015 (1.001-1.035); Urine WBC 30 /hpf (0 - 5)
[2021-09-03] MEDS ORDERED: cefTRIAXone 1GM/50ML D5W 50 ML IV ONE (09:45)
[2021-09-03] MEDS ORDERED: FUROSEMIDE 40 MG/4 ML VIAL IV ONE (09:45)
[2021-09-03] MEDS ORDERED: SPIRONOLACTONE 25 MG TAB PO ONE (09:45)
[2021-09-03] MEDS ORDERED: MORPHINE SULFATE INJECTION 2 MG/ML SYRG IV PRN ×2 (11:00)
[2021-09-03] MEDS ORDERED: NITROGLYCERIN 0.4 MG SL TAB SL PRN (11:00)
[2021-09-03] MEDS ORDERED: MECL-111 PO (15:06)
[2021-09-03] MEDS ORDERED: GLIP10TA9 PO (15:09)
[2021-09-03 23:17] VITALS: BP 155/72
[2021-09-03] MEDS: ACETAMINOPHEN 325 MG TAB PO PRN (23:44)
[2021-09-04 00:26] VITALS: BP 155/72
[2021-09-04] MEDS ORDERED: INFLUENZA QUAD 2021-2022 0.5 ML SYRG IM ONE (00:45)
[2021-09-04] MEDS ORDERED: PNEUMOCOCCAL VACC POLYS 25 MCG/0.5 ML VIAL IM ONE (00:45)
[2021-09-04] MEDS ORDERED: NYS5LQ MT (00:47)
[2021-09-04] MEDS ORDERED: CALC500C3 PO (00:47)
[2021-09-04] MEDS ORDERED: OLOP0.1S8 OP (00:47)
[2021-09-04] MEDS ORDERED: CLOT1CRE13 TOP (00:47)
[2021-09-04 05:00] VITALS: BP 152/69
[2021-09-04 06:52] LABS: Basophils # (auto) 0.1 10 ^3/uL (0-0.2); Basophils % (auto) 0.9 % (0.0-2.0); Eosinophils # (auto) 0.2 10 ^3/uL (0-0.8); Eosinophils % (auto) 2.1 % (0.0-7.0); Hematocrit 26.9 % (36.0-46.0); Hemoglobin 8.9 g/dL (12.2-16.2); Lymphocytes % (auto) 26.9 % (10.0-50.0); Mean Corpuscular Hemoglobin 27.9 pg (28.0-32.0); Mean Corpuscular Hgb Conc. 33.2 g/dL (32.0-36.0); Mean Corpuscular Volume 83.9 fL (80.0-100.0); Monocytes # (auto) 0.6 10 ^3/uL (0-1.3); Monocytes % (auto) 7.4 % (0.0-12.0); Neutrophils # (auto) 4.7 10 ^3/uL (1.6-8.6); Neutrophils % (auto) 62.7 % (37.0-80.0); Red Cell Distribution Width 14.2 % (11.8-14.3); White Blood Cell 7.5 10^3/uL (4.4-10.8)
[2021-09-04 07:02] LABS: Calcium 8.7 mg/dL (8.5-10.1); Potassium 4.3 mmol/L (3.5-5.1)
[2021-09-04 07:07] LABS: BUN/Creatinine Ratio 19.1; Bilirubin, Total 0.3 mg/dL (0.2-1.0); Total Protein 6.9 g/dL (6.4-8.2)
[2021-09-04 09:00] VITALS: BP 155/64
[2021-09-04] MEDS: ENOXAPARIN SOD 40 MG/0.4 ML SYRINGE SC SCH (09:58)
[2021-09-04] MEDS ORDERED: amLODIPine BESYLATE 5 MG TAB PO SCH (11:50)
[2021-09-04 13:00] VITALS: BP 152/94
[2021-09-04] MEDS ORDERED: cefTRIAXone 1GM/50ML D5W 50 ML IV ONE (15:45)
[2021-09-04] MEDS ORDERED: FUROSEMIDE 20 MG/2 ML VIAL IV ONE (15:45)
[2021-09-04 17:00] VITALS: BP 143/63
[2021-09-04] MEDS: ACETAMINOPHEN 325 MG TAB PO PRN (18:44)
[2021-09-04 22:00] VITALS: BP 132/63
[2021-09-05] MEDS ORDERED: DEXTROSE (50%) 50ML SYRG IV PRN (02:15)
[2021-09-05 05:00] VITALS: BP 142/68
[2021-09-05 05:43] LABS: Hematocrit 27.7 % (36.0-46.0); Hemoglobin 9.1 g/dL (12.2-16.2)
[2021-09-05] MEDS: ACCU-CHEK COMFORT CURVE STRIP VI SCH ×4 (06:18→22:40)
[2021-09-05] MEDS: InsuLIN REG 1unit/0.01ml Soln (100units/ml) SC SCH ×4 (06:19→22:43)
[2021-09-05 06:21] LABS: Calcium 8.5 mg/dL (8.5-10.1); Potassium 4.6 mmol/L (3.5-5.1)
[2021-09-05 06:27] LABS: BUN/Creatinine Ratio 15.6
[2021-09-05] MEDS: hydrALAZINE HCL 25 MG TAB PO SCH ×2 (08:33→22:39)
[2021-09-05] MEDS: ENOXAPARIN SOD 40 MG/0.4 ML SYRINGE SC SCH (08:34)
[2021-09-05] MEDS: FUROSEMIDE 20 MG/2 ML VIAL IV SCH (08:35)
[2021-09-05] MEDS: PANTOPRAZOLE 40 MG/10 ML VIAL INJ IV SCH ×2 (08:35→22:39)
[2021-09-05] MEDS: cefTRIAXone 1GM/50ML D5W 50 ML IV SCH (08:35)
[2021-09-05 09:00] VITALS: BP 101/62
[2021-09-05 13:00] VITALS: BP 147/60
[2021-09-05] MEDS ORDERED: CHOLECALCIFEROL (VITD3) 2,000 UNIT CAP/TAB PO ONE (14:30)
[2021-09-05 16:30] VITALS: BP 145/76
[2021-09-05] MEDS ORDERED: SUCRALFATE 1 GM TAB PO SCH (17:00)
[2021-09-05 22:00] VITALS: BP 150/72
[2021-09-05] MEDS: ATORVASTATIN 20 MG TAB PO SCH (22:40)
[2021-09-05] MEDS: SUCRALFATE 1 GM/10 ML ORAL SUSP PO SCH (22:40)
[2021-09-06 05:00] VITALS: BP 141/67
[2021-09-06] MEDS: SUCRALFATE 1 GM/10 ML ORAL SUSP PO SCH ×4 (06:20→22:49)
[2021-09-06] MEDS: ACCU-CHEK COMFORT CURVE STRIP VI SCH ×4 (06:21→23:19)
[2021-09-06] MEDS: InsuLIN REG 1unit/0.01ml Soln (100units/ml) SC SCH ×4 (06:22→22:00)
[2021-09-06 06:55] LABS: Calcium 8.7 mg/dL (8.5-10.1); Potassium 5.1 mmol/L (3.5-5.1)
[2021-09-06 06:57] LABS: BUN/Creatinine Ratio 18.1
[2021-09-06 09:00] VITALS: BP 134/69
[2021-09-06] MEDS: CHOLECALCIFEROL (VITD3) 2,000 UNIT CAP/TAB PO SCH (10:00)
[2021-09-06] MEDS: cefTRIAXone 1GM/50ML D5W 50 ML IV SCH (10:44)
[2021-09-06] MEDS: hydrALAZINE HCL 25 MG TAB PO SCH ×2 (10:45→22:50)
[2021-09-06] MEDS: ENOXAPARIN SOD 40 MG/0.4 ML SYRINGE SC SCH (10:45)
[2021-09-06] MEDS: PANTOPRAZOLE 40 MG/10 ML VIAL INJ IV SCH ×2 (10:46→22:49)
[2021-09-06] MEDS: FUROSEMIDE 20 MG/2 ML VIAL IV SCH (10:46)
[2021-09-06] MEDS: ACETAMINOPHEN 325 MG TAB PO PRN ×2 (10:57→21:07)
[2021-09-06 13:00] VITALS: BP 136/60
[2021-09-06 17:00] VITALS: BP 151/63
[2021-09-06 22:00] VITALS: BP 133/65
[2021-09-06] MEDS: ATORVASTATIN 20 MG TAB PO SCH (22:50)
[2021-09-07 05:00] VITALS: BP 128/55
[2021-09-07] MEDS: ACCU-CHEK COMFORT CURVE STRIP VI SCH ×4 (07:00→21:38)
[2021-09-07] MEDS: InsuLIN REG 1unit/0.01ml Soln (100units/ml) SC SCH ×4 (07:00→21:42)
[2021-09-07] MEDS: SUCRALFATE 1 GM/10 ML ORAL SUSP PO SCH ×4 (07:00→21:37)
[2021-09-07] MEDS: cefTRIAXone 1GM/50ML D5W 50 ML IV SCH (08:14)
[2021-09-07] MEDS: PANTOPRAZOLE 40 MG/10 ML VIAL INJ IV SCH ×2 (08:15→21:37)
[2021-09-07] MEDS: FUROSEMIDE 20 MG/2 ML VIAL IV SCH (08:15)
[2021-09-07] MEDS: ENOXAPARIN SOD 40 MG/0.4 ML SYRINGE SC SCH (08:15)
[2021-09-07] MEDS: CHOLECALCIFEROL (VITD3) 2,000 UNIT CAP/TAB PO SCH (08:16)
[2021-09-07] MEDS: ACETAMINOPHEN 325 MG TAB PO PRN (08:16)
[2021-09-07] MEDS: hydrALAZINE HCL 25 MG TAB PO SCH ×2 (08:16→21:40)
[2021-09-07 09:00] VITALS: BP 143/67
[2021-09-07 13:00] VITALS: BP 139/61
[2021-09-07 17:00] VITALS: BP 143/62
[2021-09-07] MEDS: ATORVASTATIN 20 MG TAB PO SCH (21:37)
[2021-09-07 22:00] VITALS: BP 150/62
[2021-09-08 05:00] VITALS: BP 158/67
[2021-09-08] MEDS: SUCRALFATE 1 GM/10 ML ORAL SUSP PO SCH ×4 (06:18→21:27)
[2021-09-08] MEDS: ACCU-CHEK COMFORT CURVE STRIP VI SCH ×4 (06:18→21:28)
[2021-09-08] MEDS: InsuLIN REG 1unit/0.01ml Soln (100units/ml) SC SCH ×4 (06:25→21:27)
[2021-09-08 09:00] VITALS: BP 148/72
[2021-09-08] MEDS: cefTRIAXone 1GM/50ML D5W 50 ML IV SCH (09:32)
[2021-09-08] MEDS: ACETAMINOPHEN 325 MG TAB PO PRN ×2 (09:50→18:20)
[2021-09-08] MEDS: PANTOPRAZOLE 40 MG/10 ML VIAL INJ IV SCH ×2 (10:02→21:27)
[2021-09-08] MEDS: FUROSEMIDE 20 MG/2 ML VIAL IV SCH (10:02)
[2021-09-08] MEDS: ENOXAPARIN SOD 40 MG/0.4 ML SYRINGE SC SCH (10:39)
[2021-09-08] MEDS: hydrALAZINE HCL 25 MG TAB PO SCH ×2 (10:39→21:27)
[2021-09-08] MEDS: CHOLECALCIFEROL (VITD3) 2,000 UNIT CAP/TAB PO SCH (10:39)
[2021-09-08 13:00] VITALS: BP 154/70
[2021-09-08] MEDS ORDERED: CHOL20007 PO (15:09)
[2021-09-08] MEDS ORDERED: SUCR1TAB22 PO (15:09)
[2021-09-08] MEDS ORDERED: ATOR20TA PO (15:09)
[2021-09-08] MEDS ORDERED: FURO1TAB33 PO (15:09)
[2021-09-08] MEDS ORDERED: PANT40TA2 PO (15:09)
[2021-09-08] MEDS ORDERED: NIFE1TAB31 PO (15:09)
[2021-09-08] MEDS ORDERED: NIFEdipine ER 30 MG TAB PO ONE (15:15)
[2021-09-08 17:00] VITALS: BP 148/83
[2021-09-08] MEDS: ATORVASTATIN 20 MG TAB PO SCH (21:27)
[2021-09-08 22:00] VITALS: BP 145/81
[2021-09-09 05:00] VITALS: BP 127/58
[2021-09-09] MEDS: ACCU-CHEK COMFORT CURVE STRIP VI SCH ×3 (05:31→17:00)
[2021-09-09] MEDS: SUCRALFATE 1 GM/10 ML ORAL SUSP PO SCH ×3 (05:31→17:00)
[2021-09-09] MEDS: InsuLIN REG 1unit/0.01ml Soln (100units/ml) SC SCH ×3 (05:33→17:00)
[2021-09-09 09:00] VITALS: BP 130/64
[2021-09-09] MEDS: FUROSEMIDE 20 MG/2 ML VIAL IV SCH (09:50)
[2021-09-09] MEDS: PANTOPRAZOLE 40 MG/10 ML VIAL INJ IV SCH (09:50)
[2021-09-09] MEDS: ENOXAPARIN SOD 40 MG/0.4 ML SYRINGE SC SCH (09:51)
[2021-09-09] MEDS: CHOLECALCIFEROL (VITD3) 2,000 UNIT CAP/TAB PO SCH (09:51)
[2021-09-09] MEDS: hydrALAZINE HCL 25 MG TAB PO SCH (09:52)
[2021-09-09] MEDS ORDERED: NIFEdipine ER 30 MG TAB PO SCH (10:00)
[2021-09-09 15:45] VITALS: BP 136/63
[2021-09-09 17:23] VITALS: BP 141/61
== END 2021-09-09 18:57 | disposition home health service (06) | DRG 291 ==
LOC: ER 00:18 → TELE 10:49 → TELE-WESTW 22:02
PROVIDERS: ADMIT Internal Medicine; ATTEND Internal Medicine
DX: I13.0 Hypertensive heart and chronic kidney disease with heart failure and stage 1 through stage 4 chronic kidney disease, or unspecified chronic kidney disease (principal); I50.33 Acute on chronic diastolic (congestive) heart failure; J18.9 Pneumonia, unspecified organism; J96.01 Acute respiratory failure with hypoxia; N17.0 Acute kidney failure with tubular necrosis; N39.0 Urinary tract infection, site not specified; E11.21 Type 2 diabetes mellitus with diabetic nephropathy; D63.8 Anemia in other chronic diseases classified elsewhere; E03.9 Hypothyroidism, unspecified; E11.22 Type 2 diabetes mellitus with diabetic chronic kidney disease; E55.9 Vitamin D deficiency, unspecified; H81.10 Benign paroxysmal vertigo, unspecified ear; Z20.822 Contact with and (suspected) exposure to COVID-19; K29.70 Gastritis, unspecified, without bleeding; E78.5 Hyperlipidemia, unspecified; I25.10 Atherosclerotic heart disease of native coronary artery without angina pectoris; K21.9 Gastro-esophageal reflux disease without esophagitis; N18.30 Chronic kidney disease, stage 3 unspecified; Z79.899 Other long term (current) drug therapy; Z82.49 Family history of ischemic heart disease and other diseases of the circulatory system; Z83.3 Family history of diabetes mellitus; Z88.6 Allergy status to analgesic agent
CPT/HCPCS: 36415; 36600; 71045; 71250; 78582; 80048; 80053; 81001; 82306; 82805; 82962; 83735; 83880; 84443; 84484; 85014; 85018; 85025; 87040; 87081; 87086; 87426; 93005; 93970; 96361; 96374; 97116; 97163; 97530; C9113; G0378; J0696; J1815

== ENCOUNTER 2021-12-29 01:50 | Inpatient (IN) | payer MEDICARE, MEDICAID ==
[~2021-12-29] VITALS: Ht 154.9 cm; Wt 67.8 kg
[~2021-12-29 01:50] MED LIST changes: -AMLO-496 PO; -ATOR-47 PO; +CALC500C3 PO; +CLOT1CRE13 TOP; +GLIP10TA9 PO; +NIFE1TAB31 PO; +NYS5LQ MT; +OLOP0.1S8 OP; -OMEP-260 PO; +PANT40TA2 PO; +SUCR1TAB22 PO
[2021-12-29] MEDS ORDERED: ASPirin 81 mg TAB PO ONE (02:15)
[2021-12-29 03:48] LABS: Basophils # (auto) 0.1 10 ^3/uL (0-0.2); Eosinophils # (auto) 0.1 10 ^3/uL (0-0.8); Eosinophils % (auto) 1.2 % (0.0-7.0); Hematocrit 30.8 % (36.0-46.0); Hemoglobin 10.3 g/dL (12.2-16.2); Lymphocytes # (auto) 2.5 10 ^3/uL (0.4-5.4); Lymphocytes % (auto) 25.1 % (10.0-50.0); Mean Corpuscular Hemoglobin 26.1 pg (28.0-32.0); Mean Corpuscular Hgb Conc. 33.5 g/dL (32.0-36.0); Mean Corpuscular Volume 77.8 fL (80.0-100.0); Monocytes # (auto) 0.6 10 ^3/uL (0-1.3); Monocytes % (auto) 5.9 % (0.0-12.0); Neutrophils # (auto) 6.7 10 ^3/uL (1.6-8.6); Neutrophils % (auto) 66.8 % (37.0-80.0); Nucleated Red Blood Cells % 0.1 %; Red Blood Cells 3.96 10^6/uL (4.0-5.20); Red Cell Distribution Width 14.8 % (11.8-14.3)
[2021-12-29 03:51] LABS: Albumin 3.4 g/dL (3.4-5.0); BUN/Creatinine Ratio 17.8; Potassium 3.7 mmol/L (3.5-5.1)
[2021-12-29 03:54] LABS: Bilirubin, Total 0.2 mg/dL (0.2-1.0)
[2021-12-29] MEDS ORDERED: FUROSEMIDE 40 MG/4 ML VIAL IV ONE (04:30)
[2021-12-29] MEDS ORDERED: Acetam/CODEINE 120mg/12mg per 5mL UD PO ONE (04:30)
[2021-12-29 05:14] LABS: Urine Bacteria FEW /hpf (None Seen); Urine Blood Negative /uL (Negative); Urine Hyaline Cast MOD /lpf (0 - 2); Urine WBC 6 /hpf (0 - 5)
[2021-12-29] MEDS ORDERED: TEMAZEPAM 15 MG CAP PO PRN (05:15)
[2021-12-29] MEDS ORDERED: MORPHINE SULFATE INJ 2 MG/ml SYRG IV PRN (05:15)
[2021-12-29] MEDS ORDERED: DEXTROSE (50%) 50ML SYRG IV PRN (05:15)
[2021-12-29] MEDS ORDERED: ONDANSETRON HCL 4 MG/2 ML VIAL IV PRN (05:15)
[2021-12-29] MEDS ORDERED: NITROGLYCERIN 0.4 MG SL TAB SL PRN (05:15)
[2021-12-29] MEDS ORDERED: FUROSEMIDE 20 MG TAB PO SCH (06:00)
[2021-12-29] MEDS: ACCU-CHEK COMFORT CURVE STRIP VI SCH ×4 (06:53→22:52)
[2021-12-29] MEDS: InsuLIN REG 1unit/0.01ml Soln (100units/ml) SC SCH ×4 (06:54→22:53)
[2021-12-29] MEDS: amLODIPine BESYLATE 5 MG TAB PO SCH (10:11)
[2021-12-29] MEDS: cefTRIAXone 1GM/50ML D5W 50 ML IV SCH (10:11)
[2021-12-29] MEDS: NIFEdipine ER 30 MG TAB PO SCH (10:12)
[2021-12-29] MEDS: ENOXAPARIN SOD 30 MG/0.3 ML SYRINGE SC SCH (10:12)
[2021-12-29] MEDS: ASPirin 81 mg TAB PO SCH (10:12)
[2021-12-29] MEDS ORDERED: CARVEDILOL 3.125 MG TAB PO ONE (12:45)
[2021-12-29] MEDS: ACETAMINOPHEN 325 MG TAB PO PRN (19:22)
[2021-12-29] MEDS: CARVEDILOL 3.125 MG TAB PO SCH (22:00)
[2021-12-29] MEDS: ATORVASTATIN 20 MG TAB PO SCH (22:52)
[2021-12-29] MEDS: guaiFENesin-DM 100/10mg/5ml SYR PO PRN (23:32)
[2021-12-30] MEDS ORDERED: FURO20TA3 PO (00:14)
[2021-12-30 05:28] VITALS: BP 133/54
[2021-12-30 05:28] LABS: Eosinophils # (auto) 0.2 10 ^3/uL (0-0.8); Hemoglobin 9.7 g/dL (12.2-16.2); Lymphocytes # (auto) 2.8 10 ^3/uL (0.4-5.4); Monocytes # (auto) 0.6 10 ^3/uL (0-1.3); Neutrophils # (auto) 4.5 10 ^3/uL (1.6-8.6); White Blood Cell 8.2 10^3/uL (4.4-10.8)
[2021-12-30 05:32] LABS: Basophils # (auto) 0.1 10 ^3/uL (0-0.2); Basophils % (auto) 0.8 % (0.0-2.0); Eosinophils % (auto) 2.9 % (0.0-7.0); Hematocrit 28.2 % (36.0-46.0); Mean Corpuscular Hemoglobin 26.3 pg (28.0-32.0); Mean Corpuscular Hgb Conc. 34.5 g/dL (32.0-36.0); Mean Corpuscular Volume 76.3 fL (80.0-100.0); Monocytes % (auto) 7.3 % (0.0-12.0); Nucleated Red Blood Cells % 0.2 %; Red Blood Cells 3.69 10^6/uL (4.0-5.20); Red Cell Distribution Width 15.2 % (11.8-14.3)
[2021-12-30 05:43] LABS: Calcium 8.8 mg/dL (8.5-10.1); Potassium 3.8 mmol/L (3.5-5.1)
[2021-12-30 05:46] LABS: BUN/Creatinine Ratio 23.7
[2021-12-30] MEDS: ACCU-CHEK COMFORT CURVE STRIP VI SCH ×4 (06:24→22:05)
[2021-12-30] MEDS: InsuLIN REG 1unit/0.01ml Soln (100units/ml) SC SCH ×4 (06:33→22:19)
[2021-12-30] MEDS ORDERED: ADENOSINE 56 MG in GIVE UN-DILUTED 0 ML IV ONE (07:15)
[2021-12-30 09:00] VITALS: BP 139/65
[2021-12-30 10:20] VITALS: BP 136/68
[2021-12-30] MEDS: ASPirin 81 mg TAB PO SCH (11:39)
[2021-12-30] MEDS: amLODIPine BESYLATE 5 MG TAB PO SCH (11:40)
[2021-12-30] MEDS: NIFEdipine ER 30 MG TAB PO SCH (11:41)
[2021-12-30] MEDS: CARVEDILOL 3.125 MG TAB PO SCH ×2 (11:42→22:04)
[2021-12-30] MEDS: ENOXAPARIN SOD 30 MG/0.3 ML SYRINGE SC SCH (11:47)
[2021-12-30] MEDS: cefTRIAXone 1GM/50ML D5W 50 ML IV SCH (11:49)
[2021-12-30] MEDS ORDERED: LACTULOSE 20Gm/30ML SOLN PO ONE (13:15)
[2021-12-30 17:00] VITALS: BP 124/55
[2021-12-30 22:00] VITALS: BP 126/57
[2021-12-30] MEDS: ATORVASTATIN 20 MG TAB PO SCH (22:04)
[2021-12-31] MEDS: guaiFENesin-DM 100/10mg/5ml SYR PO PRN (00:51)
[2021-12-31] MEDS: ACETAMINOPHEN 325 MG TAB PO PRN (00:51)
[2021-12-31 05:16] VITALS: BP 139/61
[2021-12-31] MEDS: ACCU-CHEK COMFORT CURVE STRIP VI SCH ×2 (06:45→13:25)
[2021-12-31] MEDS: InsuLIN REG 1unit/0.01ml Soln (100units/ml) SC SCH ×2 (06:46→13:24)
[2021-12-31 09:00] VITALS: BP 125/55
[2021-12-31] MEDS: ASPirin 81 mg TAB PO SCH (09:29)
[2021-12-31] MEDS: amLODIPine BESYLATE 5 MG TAB PO SCH (09:40)
[2021-12-31] MEDS: NIFEdipine ER 30 MG TAB PO SCH (09:41)
[2021-12-31] MEDS: CARVEDILOL 3.125 MG TAB PO SCH (09:42)
[2021-12-31] MEDS: cefTRIAXone 1GM/50ML D5W 50 ML IV SCH (09:45)
[2021-12-31] MEDS ORDERED: ENOXAPARIN SOD 40 MG/0.4 ML SYRINGE SC SCH (10:00)
[2021-12-31] MEDS ORDERED: LACT10PA2 PO (12:43)
[2021-12-31] MEDS ORDERED: DEXT1SYP9 PO (12:43)
[2021-12-31] MEDS ORDERED: LEVO500T31 PO (12:43)
[2021-12-31 13:00] VITALS: BP 123/62
[2021-12-31 14:20] VITALS: BP 123/74
== END 2021-12-31 16:37 | disposition home or self-care (01) | DRG 313 ==
LOC: ER 01:50 → OVERFLOW 05:10 → TELE-WESTW 22:30
PROVIDERS: ADMIT Nurse Practitioner; ATTEND Internal Medicine
DX: R07.9 Chest pain, unspecified (principal); N17.9 Acute kidney failure, unspecified; N39.0 Urinary tract infection, site not specified; N18.9 Chronic kidney disease, unspecified; D63.8 Anemia in other chronic diseases classified elsewhere; E11.22 Type 2 diabetes mellitus with diabetic chronic kidney disease; E66.9 Obesity, unspecified; E78.5 Hyperlipidemia, unspecified; K59.00 Constipation, unspecified; K21.9 Gastro-esophageal reflux disease without esophagitis; Z20.822 Contact with and (suspected) exposure to COVID-19; R09.89 Other specified symptoms and signs involving the circulatory and respiratory systems; R79.89 Other specified abnormal findings of blood chemistry; I12.9 Hypertensive chronic kidney disease with stage 1 through stage 4 chronic kidney disease, or unspecified chronic kidney disease; Z79.4 Long term (current) use of insulin; Z88.6 Allergy status to analgesic agent; Z82.49 Family history of ischemic heart disease and other diseases of the circulatory system; Z83.3 Family history of diabetes mellitus
CPT/HCPCS: 36415; 71045; 71046; 78452; 78582; 80048; 80053; 81001; 82962; 83036; 83880; 84484; 85025; 85379; 87086; 93005; 93017; 93306; 96374; 99291; G0378; J0153; J0696; J1815

== ENCOUNTER 2022-04-02 15:05 | Emergency (ER) | payer MEDICARE, MEDICAID ==
[~2022-04-02] VITALS: Ht 149.9 cm; Wt 63.6 kg
[~2022-04-02 15:05] MED LIST changes: +DEXT1SYP9 PO; +FURO20TA3 PO; +LACT10PA2 PO; +LEVO500T31 PO
[2022-04-02 15:54] LABS: Basophils # (auto) 0.1 10 ^3/uL (0-0.2); Basophils % (auto) 0.7 % (0.0-2.0); Eosinophils # (auto) 0.1 10 ^3/uL (0-0.8); Eosinophils % (auto) 0.7 % (0.0-7.0); Hematocrit 30.2 % (36.0-46.0); Hemoglobin 9.9 g/dL (12.2-16.2); Lymphocytes # (auto) 1.8 10 ^3/uL (0.4-5.4); Lymphocytes % (auto) 19.2 % (10.0-50.0); Mean Corpuscular Hgb Conc. 32.9 g/dL (32.0-36.0); Mean Corpuscular Volume 82.1 fL (80.0-100.0); Monocytes # (auto) 0.7 10 ^3/uL (0-1.3); Monocytes % (auto) 7.2 % (0.0-12.0); Neutrophils # (auto) 6.7 10 ^3/uL (1.6-8.6); Neutrophils % (auto) 72.2 % (37.0-80.0); Nucleated Red Blood Cells % 0.1 %; Red Blood Cells 3.67 10^6/uL (4.0-5.20); Red Cell Distribution Width 19.5 % (11.8-14.3); White Blood Cell 9.2 10^3/uL (4.4-10.8)
[2022-04-02 16:12] LABS: Alanine Aminotransferase 25 U/L (13-56); Albumin 3.4 g/dL (3.4-5.0); Anion Gap 9 (5-15); Aspartate Aminotransferase 14 U/L (15-37); BUN/Creatinine Ratio 14.8; Blood Urea Nitrogen 27 mg/dL (7-18); Calcium 8.2 mg/dL (8.5-10.1); Carbon Dioxide 26 mmol/L (21-32); Chloride 100 mmol/L (98-107); GFR African American 35 mL/min; GFR Non-African American 29 mL/min; Glucose 157 mg/dL (74-106); Potassium 4.3 mmol/L (3.5-5.1); Sodium 135 mmol/L (136-145)
[2022-04-02 16:15] LABS: Alkaline Phosphatase 127 U/L (45-117); Bilirubin, Total 0.3 mg/dL (0.2-1.0); Total Protein 7.5 g/dL (6.4-8.2)
[2022-04-02] MEDS ORDERED: IOHEXOL 350 MG/ML 100ML IJ ONE (20:26)
[2022-04-02] MEDS ORDERED: AZIT1POW PO (21:26)
[2022-04-02 22:20] VITALS: BP 159/62
== END 2022-04-02 22:34 | disposition home or self-care (01) ==
LOC: ER 15:05
DX: J20.9 Acute bronchitis, unspecified (principal); I12.9 Hypertensive chronic kidney disease with stage 1 through stage 4 chronic kidney disease, or unspecified chronic kidney disease; E11.22 Type 2 diabetes mellitus with diabetic chronic kidney disease; N18.9 Chronic kidney disease, unspecified; E78.5 Hyperlipidemia, unspecified
CPT/HCPCS: 36415; 71046; 80053; 83735; 83880; 84484; 85025; 85379; 93005; 99285; Q9967

== ENCOUNTER 2022-09-23 18:26 | Emergency (ER) | payer MEDICARE, MEDICAID ==
[~2022-09-23] VITALS: Ht 157.5 cm; Wt 65.0 kg
[~2022-09-23 18:26] MED LIST changes: +AZIT1POW PO
[2022-09-23 20:07] LABS: Basophils # (auto) 0.2 10 ^3/uL (0-0.2); Basophils % (auto) 1.7 % (0.0-2.0); Eosinophils # (auto) 0.2 10 ^3/uL (0-0.8); Eosinophils % (auto) 2.3 % (0.0-7.0); Hematocrit 35.3 % (36.0-46.0); Hemoglobin 11.7 g/dL (12.2-16.2); Lymphocytes # (auto) 2.8 10 ^3/uL (0.4-5.4); Lymphocytes % (auto) 27.1 % (10.0-50.0); Mean Corpuscular Hemoglobin 28.7 pg (28.0-32.0); Mean Corpuscular Volume 86.9 fL (80.0-100.0); Monocytes # (auto) 0.5 10 ^3/uL (0-1.3); Neutrophils # (auto) 6.6 10 ^3/uL (1.6-8.6); Neutrophils % (auto) 63.9 % (37.0-80.0); Nucleated Red Blood Cells % 0.1 %; Red Blood Cells 4.06 10^6/uL (4.0-5.20); Red Cell Distribution Width 14.3 % (11.8-14.3); White Blood Cell 10.4 10^3/uL (4.4-10.8)
[2022-09-23 20:25] LABS: Albumin 3.6 g/dL (3.4-5.0); Calcium 8.6 mg/dL (8.5-10.1); Potassium 4.5 mmol/L (3.5-5.1)
[2022-09-23 20:28] LABS: BUN/Creatinine Ratio 16.2; Bilirubin, Total 0.2 mg/dL (0.2-1.0); Total Protein 8.6 g/dL (6.4-8.2)
[2022-09-23] MEDS ORDERED: InsuLIN REG 1unit/0.01ml Soln (100units/ml) IV ONE (22:15)
[2022-09-23] MEDS ORDERED: SODIUM CHLORIDE 0.9% 500 ML IV ONE (22:15)
[2022-09-24 00:17] VITALS: BP 108/62
== END 2022-09-24 00:21 | disposition home or self-care (01) ==
LOC: ER 18:26
DX: E11.65 Type 2 diabetes mellitus with hyperglycemia (principal); E11.22 Type 2 diabetes mellitus with diabetic chronic kidney disease; I12.9 Hypertensive chronic kidney disease with stage 1 through stage 4 chronic kidney disease, or unspecified chronic kidney disease; N18.9 Chronic kidney disease, unspecified; E87.5 Hyperkalemia; E78.5 Hyperlipidemia, unspecified; K21.9 Gastro-esophageal reflux disease without esophagitis; Z98.890 Other specified postprocedural states
CPT/HCPCS: 36415; 80053; 82962; 84484; 85025; 93005; 96361; 96374; 99284; J1815; J7030

== ENCOUNTER 2023-11-21 11:58 | Emergency (ER) | payer MEDICARE, MEDICAID ==
[~2023-11-21] VITALS: Ht 149.9 cm; Wt 75.2 kg
[~2023-11-21 11:58] MED LIST changes: +ASPI-325 PO; +AZIT-43 PO; -AZIT1POW PO; -CALC500C3 PO; -CLOT1CRE13 TOP; +DAPA1TAB4 PO; -DEXT1SYP9 PO; -GLIP10TA9 PO; -HYDR50TA15 PO; +IBUP1TAB5 PO; +INSU100I28 SC; +INSU1INJ19 SUBCUT; -LACT10PA2 PO; -LATA0.0019 EACHEYE; -LEVO500T31 PO; -MECL-111 PO; -NYS5LQ MT; -OLOP0.1S8 OP; -SUCR1TAB22 PO
[2023-11-21] MEDS ORDERED: HYDROmorphone HCL 2 MG/ML VL/or syr IV ONE (12:45)
[2023-11-21] MEDS ORDERED: SODIUM CHLORIDE 0.9% 1,000 ML IV ONE (12:45)
[2023-11-21 13:58] LABS: Basophils # (auto) 0.1 10 ^3/uL (0-0.2); Basophils % (auto) 0.5 % (0.0-2.0); Eosinophils # (auto) 0 10 ^3/uL (0-0.8); Eosinophils % (auto) 0.2 % (0.0-7.0); Hemoglobin 11.3 g/dL (12.2-16.2); Lymphocytes # (auto) 1.7 10 ^3/uL (0.4-5.4); Lymphocytes % (auto) 11.9 % (10.0-50.0); Mean Corpuscular Hemoglobin 28.2 pg (28.0-32.0); Mean Corpuscular Hgb Conc. 32.4 g/dL (32.0-36.0); Mean Corpuscular Volume 87.1 fL (80.0-100.0); Monocytes % (auto) 6.8 % (0.0-12.0); Neutrophils # (auto) 11.5 10 ^3/uL (1.6-8.6); Neutrophils % (auto) 80.6 % (37.0-80.0); Red Blood Cells 4.01 10^6/uL (4.0-5.20); Red Cell Distribution Width 15.3 % (11.8-14.3); White Blood Cell 14.2 10^3/uL (4.4-10.8)
[2023-11-21 14:12] VITALS: PULSE 98
[2023-11-21 14:17] LABS: INR 0.96 (0.9-1.15); Partial Thromboplastin Time 23.4 SEC (24.5-34.5); Prothrombin Time 10.2 sec (9.3-11.8)
[2023-11-21] MEDS: HYDROcodone-ACET 10/325MG TAB PO ONE (14:20)
[2023-11-21 14:22] LABS: Alanine Aminotransferase 13 U/L (7-40); Albumin 4.2 g/dL (3.2-4.8); Alkaline Phosphatase 166 U/L (46-116); Anion Gap 6 (5-15); Aspartate Aminotransferase 15 U/L (13-40); BUN/Creatinine Ratio 20.6 (10.0-20.0); Bilirubin, Total 0.3 mg/dL (0.2-1.0); Blood Urea Nitrogen 32 mg/dL (9-23); Calcium 9.7 mg/dL (8.5-10.1); Carbon Dioxide 28 mmol/L (20-30); Chloride 104 mmol/L (98-107); Glucose 96 mg/dL (74-106); Sodium 138 mmol/L (136-145); Total Protein 7.5 g/dL (5.7-8.2)
[2023-11-21] MEDS: SODIUM CHLORIDE 0.9% 1,000 ML IV ONE (14:30)
[2023-11-21] MEDS: ONDANSETRON HCL 4 MG/2 ML VIAL IV ONE (14:31)
[2023-11-21 20:07] LABS: Urine Bacteria FEW /hpf (None Seen); Urine Blood 2+ /uL (Negative); Urine Clarity Ex.Turbid (Clear); Urine Color Dark-Brown (Yellow); Urine Protein, UAD 2+ (Negative); Urine Specific Gravity 1.014 (1.001-1.035); Urine Urobilinogen Normal (Negative); Urine WBC 1 /hpf (0 - 5); Urine pH 5.5 (5.0-9.0)
[2023-11-21] MEDS ORDERED: PANT40TA2 PO (21:54)
[2023-11-21] MEDS ORDERED: ACET500T58 PO (21:54)
[2023-11-21] MEDS ORDERED: METO-281 PO (21:54)
[2023-11-21] MEDS: FLUCONAZOLE 100 MG TAB PO ONE (22:40)
[2023-11-21 22:47] VITALS: BP 135/65; PULSE 75; RESP 20; TEMP 98; O2SAT 100
[2023-11-22 13:15] LABS: Magnesium 1.8 mg/dL (1.6-2.6)
== END 2023-11-21 22:34 | disposition home or self-care (01) ==
LOC: ER 11:58
DX: R51.9 Headache, unspecified (principal); R10.9 Unspecified abdominal pain; E11.9 Type 2 diabetes mellitus without complications
CPT/HCPCS: 36415; 70450; 71045; 80053; 81001; 83605; 83735; 83880; 84484; 85025; 85610; 85730; 93005; 96361; 96374; 99285; J2405; J7030

== ENCOUNTER 2024-07-11 08:44 | Emergency (ER) | payer MEDICARE, MEDICAID ==
[~2024-07-11] VITALS: Ht 157.5 cm; Wt 74.2 kg
[~2024-07-11 08:44] MED LIST changes: +ACET500T58 PO; +METO-281 PO
[2024-07-11 09:37] VITALS: BP 145/67; PULSE 89; RESP 20; TEMP 98.1; O2SAT 94
--- NOTE | 2024-07-11 09:40 | DVH ---
CHEST RADIOGRAPH Indication: fever Technique: Frontal and lateral view of the chest was obtained Comparison: CHEST TWO VIEWS ROUTINE on DOS: 04/02/22, CXR2 on DOS: 04/02/22, CHEST TWO VIEWS ROUTINE on DOS: 12/30/21, CXR2 on DOS: 12/30/21 FINDINGS: Lines and Tubes: None Lungs: Clear Pleura: No effusion. No pneumothorax. Cardiomediastinal contours: Unremarkable Bones: Unremarkable IMPRESSION: No evidence of acute disease.
--- NOTE | 2024-07-11 10:13 | ED.PDOC ---
History of Present Illness HPI Comments 73 year old with DM, HTN presents for URI symptoms Presents for myalgia, malaise, dry cough, headaches Started 2 days ago Taking Tylenol. 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 Hx Family History Family History: Reviewed,noncontributory to illness Social History Smoker: Non-Smoker Alcohol: Denies ETOH Use Drugs: Denies Drug Use Lives In: Home All Other Systems: Reviewed and Negative (per hpi) Physical Exam General Appearance: No Apparent Distress, Normal HEENT: Normal ENT Inspection, Pharynx Normal, TMs Normal Neck: Full Range of Motion, Non-Tender, Normal, Normal Inspection Respiratory: Chest Non-Tender, Lungs Clear, No Accessory Muscle Use, No Respiratory Distress, Normal Breath Sounds Cardiovascular: No Edema, No JVD, No Murmur, No Gallop, Normal Peripheral Pulses, Regular Rate/Rhythm Breast Exam: Deferred Gastrointestinal: No Organomegaly, Non Tender, No Pulsatile Mass, Normal Bowel Sounds, Soft Genitalia: Deferred Pelvic: Deferred Rectal: Deferred Extremities: No calf tenderness, Normal capillary refill, Normal inspection, Normal range of motion, Non-tender, No pedal edema Musculoskeletal : Apperance: Normal Neurologic: Alert, appliance service technician II-XII nml as Tested, No Motor Deficits, Normal Affect, Normal Mood, No Sensory Deficits Cerebellar Function: Normal Reflexes: Normal Skin: Dry, Normal Color, Warm Lymphatic: No Adenopathy Was a procedure done? Was a procedure done?: No Fever Differential Dx Differential Diagnosis: Influenza, Viral Syndrome X-Ray, Labs, Meds, VS Vital Signs Date Time Temp Pulse Resp B/P (MAP) Pulse Ox O2 Delivery O2 Flow Rate FiO2 07/11/24 09:37 89 20 94 Room Air 07/11/24 09:37 98.1 89 20 145/67 (93) 94 98.1 07/11/24 08:49 98.1 89 20 145/67 (93) 94 Lab Test 07/11/24 11:08 Range/Units Influenza Type A Antigen Positive Negative Influenza Type B Antigen Negative Negative SARS-CoV-2 Antigen (Rapid) Negative NEGATIVE PATIENT: SRINIVAS ALBERTO DEACCT: [id number]: [id number] : 1950 LOC: ER ROOM / BED: / AGE / SEX: 73 / F ADM STATUS: REG ER SERVICE 8 ORDERING PHYSICIAN: JOSETTE GORDON INCUBATOR TENDER PROCEDURE(s): CXR2 - CHEST TWO VIEWS ROUTINE REASON: fever ORDER NUMBER(s): [id number], ACCESSION NUMBER(s): [id number] CHEST RADIOGRAPH Indication: fever Technique: Frontal and lateral view of the chest was obtained Comparison: CHEST TWO VIEWS ROUTINE on DOS: 04/02/22, CXR2 on DOS: 04/02/22, CHEST TWO VIEWS ROUTINE on DOS: 12/30/21, CXR2 on DOS: 12/30/21 FINDINGS: Lines and Tubes: None Lungs: Clear Pleura: No effusion. No pneumothorax. Cardiomediastinal contours: Unremarkable Bones: Unremarkable IMPRESSION: No evidence of acute disease. ATED BY: WAYNE KAUR MD DICTATED DATE/TIME: 07/11/24937 SIGNED BY: WAYNE KAUR MD SIGNED DATE/TIME: 07/11/24937 X-Ray, Labs, Meds, VS Comment On presentation, the patient is afebrile and has stable vital signs. The patient is overall well-appearing nontoxic on exam. On physical exam, respirations even and unlabored, clear to auscultation bilaterally. Oxygen stable on room air. Viral testing done and results show influenza a Chest x-ray interpreted independently by myself Low suspicion of strep pharyngitis given physical exam findings and patient's presenting symptoms No signs of meningismus on exam Overall, the patient is well hydrated and nontoxic. Plan for symptomatic control for fever and pain as needed. The patient was able to tolerate p.o. intake in the ED. at this time, patient is safe for discharge home. The exam findings and plan discussed. We will discharge home with PCP follow up and strict return precautions. Discussed that cough can linger up to 6 weeks after viral URI Supportive care and return precautions discussed Counseled viral infection and explained that antibiotics would not be helpful in resolving the illness sooner. Recommended vitamin C, rest, handwashing, and symptomatic care. Expect 2-week course with possibly of cough lingering up to 6 weeks. Nonpharmacological remedies for fluids has been recommended as well Time of 1ST Reevaluation: 13:00 Reevaluation 1ST: Improved Patient Education/Counseling: Diagnosis, Treatment Family Education/Counseling: Diagnosis, Treatment Departure 1 Departure Time of Disposition: 13:32 Impression: Primary Impression: Influenza A Disposition: HOME / SELF CARE / HOMELESS Condition: Stable e-Prescriptions Promethazine-Dm (Promethazine Dm 6.25-15 mg/5Ml) 1 Brenda Brenda 5 ML PO TID PRN for 10 Days, #150 ML 0 Refills Prov: JOSETTE GORDON NP 07/11/24 Acetaminophen (Acetaminophen) 500 Mg Tab 500 MG PO Q6HP PRN for 10 Days, #40 TAB 0 Refills Prov: JOSETTE GORDON NP 07/11/24 Oseltamivir Phosphate (Tamiflu) 75 Mg Cap 75 MG PO BID for 5 Days, #10 CAP 0 Refills Prov: JOSETTE GORDON NP 07/11/24 Discharged With: Self Critical Care Note Critical Care Time?: No Stability Stability form required: No Heart Score Heart Score: Heart Score Response (Comments) Value History N/A 0 EKG N/A 0 Age N/A 0 Risk Factors N/A 0 Troponin N/A 0 Total 0 JOSETTE GORDON NP Jul 11, 2024 10:13
[2024-07-11] MEDS: IBUPROFEN 600 MG TAB PO ONE (10:50)
[2024-07-11] MEDS: cefTRIAXone SOD 1,000 MG VL IM ONE (10:50)
[2024-07-11 12:15] LABS: Rapid Influenza A Positive (Negative); Rapid Influenza B Negative (Negative)
[2024-07-11 12:17] LABS: COVID19 ANTIGEN SOFIA FIA NEGATIVE (NEGATIVE)
[2024-07-11] MEDS ORDERED: OSEL75CA5 PO (13:33)
[2024-07-11] MEDS ORDERED: ACET500T58 PO (13:33)
[2024-07-11] MEDS ORDERED: PROM1SOL4 PO (13:48)
== END 2024-07-11 13:46 | disposition home or self-care (01) ==
LOC: ER 08:44
DX: J10.1 Influenza due to other identified influenza virus with other respiratory manifestations (principal); K21.9 Gastro-esophageal reflux disease without esophagitis; I12.9 Hypertensive chronic kidney disease with stage 1 through stage 4 chronic kidney disease, or unspecified chronic kidney disease; E11.22 Type 2 diabetes mellitus with diabetic chronic kidney disease; N18.9 Chronic kidney disease, unspecified; E78.5 Hyperlipidemia, unspecified; Z20.822 Contact with and (suspected) exposure to COVID-19; Z98.890 Other specified postprocedural states
CPT/HCPCS: 36415; 71046; 87426; 87804; 96372; 99284; J0696

== ENCOUNTER 2024-09-29 00:10 | Emergency (ER) | payer MEDICARE, MEDICAID ==
[~2024-09-29] VITALS: Ht 162.6 cm; Wt 79.5 kg
[~2024-09-29 00:10] MED LIST changes: +OSEL75CA5 PO; +PROM1SOL4 PO
[2024-09-29] MEDS: DEXTROSE (50%) 50ML SYRG IV ONE (00:30)
--- NOTE | 2024-09-29 00:54 | ED.PDOC ---
History of present illness HPI Comments 73-year-old female came to emergency room by EMS for hypoglycemia. Patient has history of diabetes, states she has been feeling unwell and weak the entire day. Took her blood sugar levels at home and it read "low". Upon arrival of paramedics, blood sugar was at 55. Patient was given oral glucose while en route and it went up to 81. Upon arrival at the ER, blood sugar levels went down to 56 again Patient reports that she takes 30 units of Basaglar in the morning. In the afternoon she takes 5 units of fast acting insulin. After taking your fast acting insulin she only ate 2 sausages. 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 Allergies: Coded Allergies: NO KNOWN ALLERGIES (Unverified , 12/29/21) Home Meds Active Scripts Promethazine-Dm (Promethazine Dm 6.25-15 mg/5Ml) 1 Brenda Brenda, 5 ML PO TID PRN for 10 Days, #150 ML 0 Refills Prov:JOSETTE GORDON SALES AGENT [employer] 07/11/24 Acetaminophen (Acetaminophen) 500 Mg Tab, 500 MG PO Q6HP PRN for 10 Days, #40 TAB 0 Refills Prov:JOSETTE GORDON SALES AGENT [employer] 07/11/24 Oseltamivir Phosphate (Tamiflu) 75 Mg Cap, 75 MG PO BID for 5 Days, #10 CAP 0 Refills Prov:JOSETTE GORDON SALES AGENT [employer] 07/11/24 Pantoprazole Sodium Sesquihydr (Protonix) 40 Mg Tab, 40 MG PO DAILY, #30 TAB Prov:TEJAL BRUNSON MD 11/21/23 Metoclopramide Hcl (Reglan) 10 Mg Tab, 10 MG PO TID, #20 TAB Prov:TEJAL BRUNSON MD 11/21/23 Acetaminophen (Acetaminophen) 500 Mg Tab, 500 MG PO TID, #20 TAB Prov:TEJAL BRUNSON MD 11/21/23 Ibuprofen Micronized (Ibuprofen) 600 Mg Tab, 600 MG PO TID PRN for 10 Days, #30 TAB Prov:MARCELLA ANTUNEZ DO 10/10/23 Azithromycin (Azithromycin) 250 Mg Tab, 250 MG PO DAILY MDD 500 for 5 Days, #6 TAB 0 Refills 2 TABLETS ORALLY ON DAY ONE, THEN 1 TABLET ORALLY DAILY FOR 4 DAYS Prov:MARCELLA ANTUNEZ DO 10/10/23 Aspirin (Aspirin Low Dose) 81 Mg Tab, 81 MG PO DAILY for 30 Days, #30 TAB 3 Refills Prov:MARCELLA ANTUNEZ DO 10/10/23 Pantoprazole Sodium Sesquihydr (Protonix) 40 Mg Tab, 40 MG PO DAILY for 30 Days, #30 TAB Prov:ALMA GARCIA MD 09/08/21 Reported Medications Dapagliflozin Propanediol (Farxiga) 10 Mg Tab, 1 TAB PO DAILY 10/07/23 Nifedipine (Nifedipine Er) 30 Mg Tab, 1 TAB PO DAILY, #90 TAB 1 Refill 10/07/23 Linagliptin Base (TRADJENTA) 5 Mg Tab, 1 TAB PO DAILY, #90 TAB 1 Refill 10/07/23 Insulin Glargine (Basaglar Kwikpen) 100 Unit/Ml Inj, 35 UNIT SUBCUT DAILY@LUNCH, INJ 10/07/23 Insulin Aspart (Novolog) 100 Unit/Ml Inj, 5 UNIT SC TIDAC 10/07/23 Furosemide (Furosemide) 20 Mg Tab, 20 MG PO BID, TAB 12/30/21 Information Source: Patient, Emergency Med Personnel Mode of Arrival: EMS Review of Systems REVIEW OF SYSTEMS: No fever, no chills, (+) fatigue HEENT: No sore throat, no earache, no congestion, no neck pain. Cardiac: No chest pain. No palpitations. Lungs: No shortness of breath, no cough. GI: No nausea, no vomiting, no diarrhea, no constipation, no abdominal pain : No dysuria, frequency, or urgency. No hematuria. Musculoskeletal: No joint pain , no joint swelling, no extremity edema. Skin: No rash, no itching. Neuro: No headache, no dizziness, (+) weakness Vital Signs Vital Signs Date Time Temp Pulse Resp B/P (MAP) Pulse Ox O2 Delivery O2 Flow Rate FiO2 09/29/24 06:18 84 18 168/82 (110) 92 09/29/24 03:58 Room Air* 0 21 09/29/24 03:19 97.8 97.8 Physical Exam General: Awake, alert and oriented. No acute distress. Skin: Skin in warm, dry and intact. Appropriate color for ethnicity. Nailbeds pink with no cyanosis. HEENT: The head is normocephalic and atraumatic. Conjunctivae are clear without exudates or hemorrhage. Sclera is non-icteric. EOM are intact. No signs of nystagmus. Eyelids are normal in appearance without swelling or lesions. Oral mucosa is pink and moist Neck: The neck is supple with normal range of motion. No JVD. Cardiac: Heart rate and rhythm are normal. No murmurs, gallops, or rubs are auscultated. Respiratory: No signs of respiratory distress. Lung sounds are clear in all lobes bilaterally without rales, ronchi, or wheezes. Abdominal: Abdomen is soft, non-tender without distention. Bowel sounds are present and normoactive in all four quadrants. Extremities: Upper and lower extremities are atraumatic in appearance without deformity or edema. Neurological: The patient is awake, alert and oriented to person, place, and time with normal speech. Speech is clear. There is no facial asymmetry. Psychiatric: Appropriate mood and affect. Good judgement and insight. No visual or auditory hallucinations. 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 Was a procedure done?: No Differential Diagnosis (DM) Differential Diagnosis: Dehydration, Electrolyte Abnormality, Encephalopathy, Hypoglycemia, UTI X-Ray, Labs, Meds, VS Vital Signs Date Time Temp Pulse Resp B/P (MAP) Pulse Ox O2 Delivery O2 Flow Rate FiO2 09/29/24 06:18 84 18 168/82 (110) 92 09/29/24 04:45 190/60 09/29/24 04:12 84 18 150/73 (98) 92 09/29/24 03:58 86 18 94 Room Air* 0 21 09/29/24 03:45 193/86 09/29/24 03:19 97.8 82 17 192/78 (116) 92 97.8 09/29/24 01:57 83 18 192/76 (114) 92 09/29/24 00:13 98.0 84 16 165/86 (112) 96 Lab Test 09/29/24 04:01 09/29/24 01:32 09/29/24 01:00 Range/Units POC Glucose 194 H 182 H 70-106 mg/dl White Blood Count 11.6 H 4.4-10.8 10^3/uL Red Blood Count 4.02 4.0-5.20 10^6/uL Hemoglobin 12.6 12.2-16.2 g/dL Hematocrit 37.8 36.0-46.0 % Mean Corpuscular Volume 94.0 80.0-100.0 fL Mean Corpuscular Hemoglobin 31.5 28.0-32.0 pg Mean Corpuscular Hemoglobin Concent 33.5 32.0-36.0 g/dL Red Cell Distribution Width 14.2 11.8-14.3 % Platelet Count 281 140-450 10^3/uL Mean Platelet Volume 7.5 6.9-10.8 fL Neutrophils (%) (Auto) 60.5 37.0-80.0 % Lymphocytes (%) (Auto) 30.0 10.0-50.0 % Monocytes (%) (Auto) 7.7 0.0-12.0 % Eosinophils (%) (Auto) 1.2 0.0-7.0 % Basophils (%) (Auto) 0.6 0.0-2.0 % Neutrophils # (Auto) 7.0 1.6-8.6 10 ^3/uL Lymphocytes # (Auto) 3.5 0.4-5.4 10 ^3/uL Monocytes # (Auto) 0.9 0-1.3 10 ^3/uL Eosinophils # (Auto) 0.1 0-0.8 10 ^3/uL Basophils # (Auto) 0.1 0-0.2 10 ^3/uL Nucleated Red Blood Cells 0.1 % Sodium Level 139 136-145 mmol/L Potassium Level 4.7 3.5-5.1 mmol/L Chloride Level 108 H 98-107 mmol/L Carbon Dioxide Level 24 20-31 mmol/L Anion Gap 7 5-15 Blood Urea Nitrogen 33 H 9-23 mg/dL Creatinine 1.69 H 0.550-1.02 mg/dL Glomerular Filtration Rate Calc 32 >90 mL/min BUN/Creatinine Ratio 19.5 10.0-20.0 Serum Glucose 57 L 74-106 mg/dL Calcium Level 9.6 8.7-10.4 mg/dL Total Bilirubin < 0.2 L 0.2-1.0 mg/dL Aspartate Amino Transferase (AST) 28 13-40 U/L Alanine Aminotransferase (ALT) 38 7-40 U/L Alkaline Phosphatase 131 H 46-116 U/L Troponin I High Sensitivity 7 </=34 ng/L Total Protein 7.3 5.7-8.2 g/dL Albumin 4.2 3.2-4.8 g/dL Current Medications Medications (Trade) Dose Ordered Sig/Dorothy Route Start Time Stop Time Status Last Admin Dextrose 50 ml ONCE ONCE IV 09/29/24 00:30 09/29/24 00:31 DC 09/29/24 00:30 Acetaminophen (Tylenol Tablet Or Capsule) 1,000 mg ONCE ONCE PO 09/29/24 04:30 09/29/24 04:31 DC 09/29/24 04:40 Clonidine HCl (Catapres Tablet) 0.1 mg ONCE ONCE PO 09/29/24 04:45 09/29/24 04:46 DC 09/29/24 04:45 Time of 1ST Reevaluation: 00:44 Reevaluation 1ST: Unchanged Patient Education/Counseling: Diagnosis, Treatment Family Education/Counseling: No Family Present Departure 1 Departure Time of Disposition: 03:00 Impression: Primary Impression: Hypoglycemia Disposition: 01 HOME / SELF CARE / HOMELESS Condition: Stable Additional Instructions: INSTRUCCIONES DE SANDRA DE Urgencias Instrucciones: Elizabeth atentamente todas las instrucciones proporcionadas en braulio paquete. Aunque le hayan dado el sandra del Departamento de Emergencias, esto no significa que tenga un "certificado de [place]". [] Hoy no se bower realizado ningn diagnstico definitivo para celena sntomas. Es posible que ests en proceso de desarrollar sahra enfermedad grave. Es por eso que debe regresar al servicio de urgencias sin falta si presenta algn sntoma nuevo o que empeora (especialmente si celena sntomas incluyen dolor en el pecho, dificultad para respirar, dolor abdominal, fiebre, dolor de rebecca, confusin, dificultad para lenny o caminar). Alan es muy importante que consulte a un mdico de atencin primaria dentro de los prximos 3 a 5 amado para realizar un seguimiento. Si no puede conseguir sahra kai, regrese al servicio de urgencias para sahra nueva evaluacin. No tome la insulina de accin rpida (las 5 unidades) por las tardes hasta que tenga sahra kai de seguimiento con kaplan mdico de cabecera. Esta insulina carter que kaplan nivel de azcar en kathy baje rpidamente. Contine tomando Basaglar por las maanas mina de costumbre. Comments 73-year-old female who presented with hypoglycemia after taking fast acting insulin and eating no carbs. Blood sugar improved, mental status improved. Blood sugar remained stable during the ED observation. She is felt stable for discharge home to follow up with the primary care provider. She was advised to hold the fast acting insulin as she is now change her diet and is reducing amount of carbohydrates in her diet, until she follow up with the primary care provider for further recommendation. Critical Care Note Critical Care Time?: Yes (45 min-critical care time only) Critical care comment: Hypoglycemia Stability Stability form required: No Heart Score Heart Score: Heart Score Response (Comments) Value History N/A 0 EKG N/A 0 Age N/A 0 Risk Factors N/A 0 Troponin N/A 0 Total 0 I personally scribed for CLAUS FAGAN MD ([email or web address]) on 09/29/24 at 00:54. Electronically submitted by Gerber Dejesus ([email or web address]). CLAUS FAGAN MD Sep 29, 2024 00:54
[2024-09-29 01:15] LABS: Basophils # (auto) 0.1 10 ^3/uL (0-0.2); Basophils % (auto) 0.6 % (0.0-2.0); Eosinophils # (auto) 0.1 10 ^3/uL (0-0.8); Eosinophils % (auto) 1.2 % (0.0-7.0); Hematocrit 37.8 % (36.0-46.0); Hemoglobin 12.6 g/dL (12.2-16.2); Lymphocytes # (auto) 3.5 10 ^3/uL (0.4-5.4); Mean Corpuscular Hemoglobin 31.5 pg (28.0-32.0); Mean Corpuscular Hgb Conc. 33.5 g/dL (32.0-36.0); Monocytes # (auto) 0.9 10 ^3/uL (0-1.3); Monocytes % (auto) 7.7 % (0.0-12.0); Neutrophils % (auto) 60.5 % (37.0-80.0); Nucleated Red Blood Cells % 0.1 %; Platelet Count (auto) 281 10^3/uL (140-450); Red Blood Cells 4.02 10^6/uL (4.0-5.20); Red Cell Distribution Width 14.2 % (11.8-14.3); White Blood Cell 11.6 10^3/uL (4.4-10.8)
[2024-09-29 01:34] LABS: Alanine Aminotransferase 38 U/L (7-40); Albumin 4.2 g/dL (3.2-4.8); Alkaline Phosphatase 131 U/L (46-116); Anion Gap 7 (5-15); Aspartate Aminotransferase 28 U/L (13-40); BUN/Creatinine Ratio 19.5 (10.0-20.0); Blood Urea Nitrogen 33 mg/dL (9-23); Calcium 9.6 mg/dL (8.7-10.4); Carbon Dioxide 24 mmol/L (20-31); Chloride 108 mmol/L (98-107); Glucose 57 mg/dL (74-106); Potassium 4.7 mmol/L (3.5-5.1); Sodium 139 mmol/L (136-145); Total Protein 7.3 g/dL (5.7-8.2)
[2024-09-29 01:35] LABS: Bilirubin, Total < 0.2 mg/dL (0.2-1.0)
[2024-09-29 03:19] VITALS: TEMP 97.8
[2024-09-29] MEDS: cloNIDine HCL 0.1 MG TAB ONE (03:45)
[2024-09-29 03:58] VITALS: PULSE 86; RESP 18; O2SAT 94
[2024-09-29] MEDS: ACETAMINOPHEN 500 MG TAB or CAP PO ONE (04:40)
[2024-09-29] MEDS: cloNIDine HCL 0.1 MG TAB PO ONE (04:45)
[2024-09-29 06:18] VITALS: BP 168/82; PULSE 84; RESP 18; O2SAT 92
== END 2024-09-29 05:45 | disposition home or self-care (01) ==
LOC: ER 00:10 → EDUNIT# 00:10 → ER 05:45
DX: E11.649 Type 2 diabetes mellitus with hypoglycemia without coma (principal); I10 Essential (primary) hypertension; K21.9 Gastro-esophageal reflux disease without esophagitis; Z79.4 Long term (current) use of insulin; Z79.82 Long term (current) use of aspirin; Z79.84 Long term (current) use of oral hypoglycemic drugs; Z79.899 Other long term (current) drug therapy
CPT/HCPCS: 36415; 80053; 82947; 82962; 84484; 85025; 96374

== ENCOUNTER 2025-02-07 09:10 | Inpatient (IN) | payer MEDICARE, MEDICAID ==
[~2025-02-07] VITALS: Ht 160 cm; Wt 69.3 kg
[2025-02-07] MEDS ORDERED: KETOROLAC TROMETH 30 MG/ML 1ML VIAL IM ONE (10:00)
[2025-02-07] MEDS ORDERED: methylPREDNISolone SOD SUCC 125 MG/2 ML VL IM ONE (10:00)
[2025-02-07 10:33] LABS: Hematocrit 39.6 % (36.0-46.0); Hemoglobin 13.4 g/dL (12.2-16.2); Mean Corpuscular Hemoglobin 30.4 pg (28.0-32.0); Mean Corpuscular Volume 89.9 fL (80.0-100.0); Nucleated Red Blood Cells % 0.0 %
--- NOTE | 2025-02-07 10:37 | ED.PDOC ---
GI ASSESSMENT HPI Comments A 74 year-old female, with a PMHX of GERD, DM, and HTN, presents to the ED with a chief complaint of diarrhea + jelly like bowel movements with associated chills and abdominal pain as of X4 days. Patient reports recent trip to [facility], as well as, taking an anti-diarrhea medication from [place] with no associated alleviating factors. Patient additionally notes about X5 stools daily. BM are triggered after eating food. Patient has no further complaints at this time and otherwise denies further associated symptoms of blood in stool, N/V, fever, sweats, or dysuria. Chief Complaint: Diarrhea Time Seen by MD: 10:05 Primary Care Provider: GIL Reviewed Notes: Nurses Notes, Medications, Allergies Allergies: Coded Allergies: NO KNOWN ALLERGIES (Unverified , 12/29/21) Home Meds Active Scripts Promethazine-Dm (Promethazine Dm 6.25-15 mg/5Ml) 1 Brenda Brenda, 5 ML PO TID PRN for 10 Days, #150 ML 0 Refills Prov:JOSETTE GORDON SUPPLY CHAIN VICE PRESIDENT 07/11/24 Acetaminophen (Acetaminophen) 500 Mg Tab, 500 MG PO Q6HP PRN for 10 Days, #40 TAB 0 Refills Prov:JOSETTE GORDON [employer] CH[employer] VICE PRESIDENT 07/11/24 Oseltamivir Phosphate (Tamiflu) 75 Mg Cap, 75 MG PO BID for 5 Days, #10 CAP 0 Refills Prov:JOSETTE GORDON [employer] CH[employer] VICE PRESIDENT 07/11/24 Pantoprazole Sodium Sesquihydr (Protonix) 40 Mg Tab, 40 MG PO DAILY, #30 TAB Prov:TEJAL BRUNSON MD 11/21/23 Metoclopramide Hcl (Reglan) 10 Mg Tab, 10 MG PO TID, #20 TAB Prov:TEJAL BRUNSON MD 11/21/23 Acetaminophen (Acetaminophen) 500 Mg Tab, 500 MG PO TID, #20 TAB Prov:TEJAL BRUNSON MD 11/21/23 Ibuprofen Micronized (Ibuprofen) 600 Mg Tab, 600 MG PO TID PRN for 10 Days, #30 TAB Prov:MARCELLA ANTUNEZ DO 10/10/23 Azithromycin (Azithromycin) 250 Mg Tab, 250 MG PO DAILY MDD 500 for 5 Days, #6 TAB 0 Refills 2 TABLETS ORALLY ON DAY ONE, THEN 1 TABLET ORALLY DAILY FOR 4 DAYS Prov:MARCELLA ANTUNEZ DO 10/10/23 Aspirin (Aspirin Low Dose) 81 Mg Tab, 81 MG PO DAILY for 30 Days, #30 TAB 3 Refills Prov:MARCELLA ANTUNEZ DO 10/10/23 Pantoprazole Sodium Sesquihydr (Protonix) 40 Mg Tab, 40 MG PO DAILY for 30 Days, #30 TAB Prov:ALMA GARCIA MD 09/08/21 Reported Medications Dapagliflozin Propanediol (Farxiga) 10 Mg Tab, 1 TAB PO DAILY 10/07/23 Nifedipine (Nifedipine Er) 30 Mg Tab, 1 TAB PO DAILY, #90 TAB 1 Refill 10/07/23 Linagliptin Base (TRADJENTA) 5 Mg Tab, 1 TAB PO DAILY, #90 TAB 1 Refill 10/07/23 Insulin Glargine (Basaglar Kwikpen) 100 Unit/Ml Inj, 35 UNIT SUBCUT DAILY@LUNCH, INJ 10/07/23 Insulin Aspart (Novolog) 100 Unit/Ml Inj, 5 UNIT SC TIDAC 10/07/23 Furosemide (Furosemide) 20 Mg Tab, 20 MG PO BID, TAB 12/30/21 Information Source: Patient Mode of Arrival: Ambulatory Timing: Days Duration: Since onset Prehospital treatment: None Severity: Moderate Recent: Travel Associated sign and symptoms: Diarrhea, Abdominal Pain (mild ), Other (chills ) Past Medical History PAST MEDICAL HISTORY: CKF, DM, GERD, High Lipids, HTN 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 Family History Family History: Reviewed,noncontributory to illness Social History Smoker: Non-Smoker Alcohol: Denies ETOH Use Drugs: Denies Drug Use Lives In: Home Constitutional: denies: chills, diaphoresis, fatigue, fever, malaise, sweats, weakness, others EENTM: denies: blurred vision, double vision, ear bleeding, ear discharge, ear drainage, ear pain, ear ringing, eye pain, eye redness, hearing loss, mouth pain, mouth swelling, nasal discharge, nose bleeding, nose congestion, nose pain, photophobia, tearing, throat pain, throat swelling, voice changes, others Respiratory: denies: cough, hemoptysis, orthopnea, SOB at rest, shortness of breath, SOB with excertion, stridor, wheezing, others Cardiovascular: denies: chest pain, dizzy spells, diaphoresis, Dyspnea on exertion, edema, irregular heart beat, left arm pain, lightheadedness, palpitations, PND, syncope, others Gastrointestinal: reports: others (PER HPI ); denies: abdomen distended, abdominal pain, blood streaked bowels, constipated, diarrhea, dysphagia, difficulty swallowing, hematemesis, melena, nausea, poor appetite, poor fluid intake, rectal bleeding, rectal pain, vomiting Genitourinary: denies: abnormal vagina bleeding, burning, dyspareunia, dysuria, flank pain, frequency, hematuria, incontinence, pain, , vagina discharge, urgency, others Neurological: denies: dizziness, fainting, headache, left sided numbness, left sided weakness, numbness, paresthesia, pre-existing deficit, right sided numbness, right sided weakness, seizure, speech problems, tingling, tremors, weakness, others Musculoskeletal: denies: back pain, gout, joint pain, joint swelling, muscle p ain, muscle stiffness, neck pain, others Integumetry: denies: bruises, change in color, change in hair/nails, dryness, laceration, lesions, lumps, rash, wounds, others Allergic/Immunocompromised: denies: Difficulty Healing, Frequent Infections, Hives, Itching, others Hematologic/Lymphatic: denies: anemia, blood clots, easy bleeding, easy bruising, swollen glands, others Endocrine: denies: excessive hunger, excessive sweating, excessive thirst, excessive urination, flushing, intolerance to cold, intolerance to heat, unexplained weight gain, unexplained weight loss, others Psychiatric: denies: anxiety, bipolar disorder, depression, hopeless, panic disorder, schizophrenia, sleepless, suicidal, others All Other Systems: Reviewed and Negative Physical Exam General Appearance: Moderate Distress, Normal HEENT: Normal ENT Inspection, Pharynx Normal, TMs Normal Neck: Full Range of Motion, Non-Tender, Normal, Normal Inspection Respiratory: Chest Non-Tender, Lungs Clear, No Accessory Muscle Use, No Respiratory Distress, Normal Breath Sounds Cardiovascular: No Edema, No JVD, No Murmur, No Gallop, Normal Peripheral Pulses, Regular Rate/Rhythm Breast Exam: Deferred Gastrointestinal: No Organomegaly, Non Tender, No Pulsatile Mass, Normal Bowel Sounds, Soft Genitalia: Deferred Pelvic: Deferred Rectal: Deferred Extremities: No calf tenderness, Normal capillary refill, Normal inspection, Normal range of motion, Non-tender, No pedal edema Musculoskeletal : Apperance: Normal Neurologic: Alert, construction economist II-XII nml as Tested, No Motor Deficits, Normal Affect, Normal Mood, No Sensory Deficits Cerebellar Function: Normal Reflexes: Normal Skin: Dry, Normal Color, Warm Lymphatic: No Adenopathy Was a procedure done? Was a procedure done?: No GI differential Dx Differential Diagnosis: Gastroenteritis, Inflammatory BD, Dehydration, Food Poisoning, Bacterial, Parasitic, Viral X-Ray, Labs, Meds, VS Vital Signs Date Time Temp Pulse Resp B/P (MAP) Pulse Ox O2 Delivery O2 Flow Rate FiO2 02/07/25 18:19 98.4 82 15 126/76 (93) 98 98.4 02/07/25 15:16 97.9 75 16 127/68 (87) 96 97.9 02/07/25 13:32 97.8 76 16 149/71 (97) 95 97.8 02/07/25 11:31 98.1 77 16 154/72 (99) 97 98.1 02/07/25 11:31 77 16 97 Room Air 02/07/25 09:55 98.4 82 17 167/82 (110) 95 98.4 Lab Test 02/07/25 10:22 02/07/25 10:02 Range/Units White Blood Count 11.7 H 4.4-10.8 10^3/uL Red Blood Count 4.41 4.0-5.20 10^6/uL Hemoglobin 13.4 12.2-16.2 g/dL Hematocrit 39.6 36.0-46.0 % Mean Corpuscular Volume 89.9 80.0-100.0 fL Mean Corpuscular Hemoglobin 30.4 28.0-32.0 pg Mean Corpuscular Hemoglobin Concent 33.8 32.0-36.0 g/dL Red Cell Distribution Width 13.9 11.8-14.3 % Platelet Count 340 140-450 10^3/uL Mean Platelet Volume 7.1 6.9-10.8 fL Neutrophils (%) (Auto) 71.7 37.0-80.0 % Lymphocytes (%) (Auto) 22.0 10.0-50.0 % Monocytes (%) (Auto) 4.7 0.0-12.0 % Eosinophils (%) (Auto) 0.8 0.0-7.0 % Basophils (%) (Auto) 0.8 0.0-2.0 % Neutrophils # (Auto) 8.4 1.6-8.6 10 ^3/uL Lymphocytes # (Auto) 2.6 0.4-5.4 10 ^3/uL Monocytes # (Auto) 0.6 0-1.3 10 ^3/uL Eosinophils # (Auto) 0.1 0-0.8 10 ^3/uL Basophils # (Auto) 0.1 0-0.2 10 ^3/uL Nucleated Red Blood Cells 0.0 % Sodium Level 140 136-145 mmol/L Potassium Level 4.1 3.5-5.1 mmol/L Chloride Level 105 98-107 mmol/L Carbon Dioxide Level 25 20-31 mmol/L Anion Gap 10 5-15 Blood Urea Nitrogen 20 9-23 mg/dL Creatinine 1.70 H 0.550-1.02 mg/dL Glomerular Filtration Rate Calc 32 >90 mL/min BUN/Creatinine Ratio 11.8 10.0-20.0 Serum Glucose 113 H 74-106 mg/dL Lactic Acid Level 1.1 0.4-2.0 mmol/L Calcium Level 9.5 8.7-10.4 mg/dL Total Bilirubin 0.2 0.2-1.0 mg/dL Aspartate Amino Transferase (AST) 23 13-40 U/L Alanine Aminotransferase (ALT) 19 7-40 U/L Alkaline Phosphatase 156 H 46-116 U/L Total Protein 7.9 5.7-8.2 g/dL Albumin 4.5 3.2-4.8 g/dL Urine Color Dark yellow Yellow Urine Clarity Ex.turbid Clear Urine pH 6.5 5.0-9.0 Urine Specific [place] 1.015 1.001-1.035 Urine Protein 3+ H Negative Urine Ketones Negative Negative Urine Blood 1+ H Negative /uL Urine Nitrite Negative Negative Urine Bilirubin Negative Negative Urine Urobilinogen Normal Negative mg/dL Urine Leukocyte Esterase 3+ Negative /uL Urine RBC 18 0 - 4 /hpf Urine WBC Clumps Present None Seen /hpf Urine Microscopic WBC 873 H 0-5 /HPF Urine Squamous Epithelial Cells Few <5 /hpf Urine Bacteria None seen None Seen /hpf Urine Creatinine 102.56 30.0-125.0 mg/dL Urine Sodium 85 40-220 mmol/L Urine Glucose Normal Normal mg/dL Microbiology Date/Time Source Procedure Growth Status 02/07/25 10:02 Voided Urine Urine Culture - Final Escherichia coli - ESBL Complete X-Ray, Labs, Meds, VS Comment A 74 year-old female, with a PMHX of GERD, DM, and HTN, presents to the ED with a chief complaint of diarrhea with associated chills as of X4 days ago. Patient arrives alert and oriented, ABC's intact, afebrile, vital signs stable, saturating well in room air was evaluated for dehydration and a differential for IBD, ischemic colitis, dysentery, and bacterial infection was considered. The acute presentation and exam are most consistent with food poisoning vs viral gastroenteritis vs bacterial . Risk factors: international travel. No vomiting or diarrhea while here There is no evidence of sepsis or systemic toxicity or significant dehydration. No risk factors such as blood in stool, or antibiotic inflammatory bowel disease, upper or lower GI bleeding, C difficile, E. Coli. Patient also has no evidence of peritonitis, surgical condition or ischemic colitis. CBC was ordered to exclude anemia, blood loss, or infection. CMP was ordered to exclude electrolyte abnormalities, renal failure, dehydration, hyperglycemia and/or liver enzyme abnormalities. Urinalysis was ordered to rule out UTI or hematuria. Stool test were ordered and pending Labs in the ED showed + UTI After a period of observation patient unable to have a BM. The patient is also comfortable being discharged at this time due to her Ab pain and symptoms noted above. The patient's workup is currently remarkable for a UTI and patient will be admitted for IV antibiotics until stool tests are completed Patient verbalized understanding of the above and is awaiting further evaluation by the admitting service. Time of 1ST Reevaluation: 10:48 Reevaluation 1ST: Unchanged Time of 2ND Reevaluation: 14:12 Reevaluation 2ND: Unchanged Patient Education/Counseling: Diagnosis, Treatment Family Education/Counseling: No Family Present Medical Screening: No EMC Exist At This Time SEPSIS Sepsis Screen Physician Orders Ova & Parasite Exam (02/07/25 10:05) Stool Occult Blood (02/07/25 10:05) Stool Wbc (02/07/25 10:05) Ct Ab Pel Wo Con-No Oral Or Iv (02/07/25 11:26) Heplock Iv (02/07/25 ) Vital Signs Date Time Temp Pulse Resp B/P (MAP) Pulse Ox O2 Delivery O2 Flow Rate FiO2 02/07/25 18:19 98.4 82 15 126/76 (93) 98 98.4 02/07/25 15:16 97.9 75 16 127/68 (87) 96 97.9 02/07/25 13:32 97.8 76 16 149/71 (97) 95 97.8 02/07/25 11:31 98.1 77 16 154/72 (99) 97 98.1 02/07/25 11:31 77 16 97 Room Air 02/07/25 09:55 98.4 82 17 167/82 (110) 95 98.4 Laboratory Tests Test 02/07/25 10:22 Lactic Acid Level 1.1 mmol/L (0.4-2.0) White Blood Count 11.7 10^3/uL (4.4-10.8) H Departure 1 Departure Time of Disposition: 14:20 Impression: Primary Impression: Diarrhea Qualified Codes: R19.7 - Diarrhea, unspecified Additional Impression: UTI (urinary tract infection) Qualified Codes: N30.00 - Acute cystitis without hematuria Disposition: ADMITTED INPATIENT Condition: Fair Discharged With: Self Critical Care Note Critical Care Time?: No Stability Stability form required: No Heart Score Heart Score: Heart Score Response (Comments) Value History N/A 0 EKG N/A 0 Age N/A 0 Risk Factors N/A 0 Troponin N/A 0 Total 0 I personally scribed for JOSETTE GORDON SUPPLY CHAIN VICE PRESIDENT ([email or web address]) on 02/07/25 at 10:37. Electronically submitted by Shey Teran ([employer]). I personally scribed for JOSETTE GORDON SUPPLY CHAIN VICE PRESIDENT ([email or web address]) on 02/07/25 at 10:40. Electronically submitted by Shey Teran ([employer]). I personally scribed for JOSETTE GORDON SUPPLY CHAIN VICE PRESIDENT ([email or web address]) on 02/07/25 at 10:41. Electronically submitted by Shey Teran ([employer]). JOSETTE GORDON NP Feb 07, 2025 10:37
[2025-02-07 10:44] LABS: Urine Protein, UAD 3+ (Negative); Urine WBC Clumps PRESENT /hpf (None Seen)
[2025-02-07 10:48] LABS: Alanine Aminotransferase 19 U/L (7-40); Anion Gap 10 (5-15); BUN/Creatinine Ratio 11.8 (10.0-20.0); Blood Urea Nitrogen 20 mg/dL (9-23); Calcium 9.5 mg/dL (8.7-10.4); Carbon Dioxide 25 mmol/L (20-31); Chloride 105 mmol/L (98-107); Potassium 4.1 mmol/L (3.5-5.1); Sodium 140 mmol/L (136-145); Total Protein 7.9 g/dL (5.7-8.2)
[2025-02-07 10:52] LABS: Alkaline Phosphatase 156 U/L (46-116); Bilirubin, Total 0.2 mg/dL (0.2-1.0); Glucose 113 mg/dL (74-106)
[2025-02-07 10:59] LABS: Albumin 4.5 g/dL (3.2-4.8)
--- NOTE | 2025-02-07 12:21 | DVH ---
Indication: Ab pain Technique: CT axial images of the abdomen and pelvis are obtained without contrast. Coronal and sagit mallika reformats were obtained. Radiation Dose Information: CTDI volume is 0.07 mGy. Dose-length product is 766.12 mGy*cm Comparison: CT CT AB PEL WO CON-NO ORAL OR IV on DOS: 10/06/23, ECIDC on DOS: 12/29/21 FINDINGS: There is limited interpretation of the abdomen and pelvis without administration of intravenous contr ast. Lung bases demonstrate 3 mm right middle lobe pulmonary nodule. Adrenal glands, spleen, pancreas unremarkable in shape. Liver unremarkable in shape. No CT evidence for cholelithiasis. No hydronephrosis, nephrolithiasis. Small hiatal hernia. Stomach partially distended. Small bowel loops are normal in caliber. Colonic diverticular disease. Normal appendix. Abdominal aortic atherosclerotic disease. Bladder partially distended. No free pelvic fluid. No ingui nal lymphadenopathy. Ahju-le-gdnvynib thoracolumbar degenerative disc disease. IMPRESSION: Limited evaluation without contrast. No hydronephrosis. Colonic diverticular disease. Atherosclerotic disease. Other findings as described
[2025-02-07] MEDS: cefTRIAXone 1GM/50ML D5W 50 ML IV ONE (12:35)
--- NOTE | 2025-02-07 18:29 | DVHHP2 ---
Admitting Diagnosis: DIARRHEA History of Present Illness A 74 year-old female, with a PMHX of GERD, DM, and HTN, presents to the ED with a chief complaint of diarrhea + jelly like bowel movements with associated c hills and abdominal pain as of X4 days. Patient reports recent trip to [facility], as well as, taking an anti-diarrhea medication from [place] with no associated alleviating factors. Patient additionally notes about X5 stools daily. BM are triggered after eating food. Patient has no further complaints at this time and otherwise denies further associated symptoms of blood in stool, N /V, fever, sweats, or dysuria. 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 Family History Family History: Reviewed,noncontributory to illness Social History Smoker: Non-Smoker Alcohol: Denies ETOH Use Drugs: Denies Drug Use Lives In: Home Patient Family History: Cardiovascular disease G8 MOTHER Diabetes mellitus 19 CHILD Unknown family medical history Allergies: Coded Allergies: NO KNOWN ALLERGIES (Unverified , 12/29/21) Home Meds Active Scripts Promethazine-Dm (Promethazine Dm 6.25-15 mg/5Ml) 1 Brenda Brenda, 5 ML PO TID PRN for 10 Days, #150 ML 0 Refills Prov:JOSETTE GORDON DEHAIRER 07/11/24 Acetaminophen (Acetaminophen) 500 Mg Tab, 500 MG PO Q6HP PRN for 10 Days, #40 TAB 0 Refills Prov:JOSETTE GORDON DEHAIRER 07/11/24 Oseltamivir Phosphate (Tamiflu) 75 Mg Cap, 75 MG PO BID for 5 Days, #10 CAP 0 Refills Prov:JOSETTE GORDON DEHAIRER 07/11/24 Pantoprazole Sodium Sesquihydr (Protonix) 40 Mg Tab, 40 MG PO DAILY, #30 TAB Prov:TEJAL BRUNSON MD 11/21/23 Metoclopramide Hcl (Reglan) 10 Mg Tab, 10 MG PO TID, #20 TAB Prov:TEJAL BRUNSON MD 11/21/23 Acetaminophen (Acetaminophen) 500 Mg Tab, 500 MG PO TID, #20 TAB Prov:TEJAL BRUNSON MD 11/21/23 Ibuprofen Micronized (Ibuprofen) 600 Mg Tab, 600 MG PO TID PRN for 10 Days, #30 TAB Prov:MARCELLA ANTUNEZ DO 10/10/23 Azithromycin (Azithromycin) 250 Mg Tab, 250 MG PO DAILY MDD 500 for 5 Days, #6 TAB 0 Refills 2 TABLETS ORALLY ON DAY ONE, THEN 1 TABLET ORALLY DAILY FOR 4 DAYS Prov:MARCELLA ANTUNEZ DO 10/10/23 Aspirin (Aspirin Low Dose) 81 Mg Tab, 81 MG PO DAILY for 30 Days, #30 TAB 3 Refills Prov:MARCELLA ANTUNEZ DO 10/10/23 Pantoprazole Sodium Sesquihydr (Protonix) 40 Mg Tab, 40 MG PO DAILY for 30 Days, #30 TAB Prov:ALMA GARCIA MD 09/08/21 Reported Medications Dapagliflozin Propanediol (Farxiga) 10 Mg Tab, 1 TAB PO DAILY 10/07/23 Nifedipine (Nifedipine Er) 30 Mg Tab, 1 TAB PO DAILY, #90 TAB 1 Refill 10/07/23 Linagliptin Base (TRADJENTA) 5 Mg Tab, 1 TAB PO DAILY, #90 TAB 1 Refill 10/07/23 Insulin Glargine (Basaglar Kwikpen) 100 Unit/Ml Inj, 35 UNIT SUBCUT DAILY@LUNCH, INJ 10/07/23 Insulin Aspart (Novolog) 100 Unit/Ml Inj, 5 UNIT SC TIDAC 10/07/23 Furosemide (Furosemide) 20 Mg Tab, 20 MG PO BID, TAB 12/30/21 Vital Signs Vital Signs Date Time Temp Pulse Resp B/P (MAP) Pulse Ox O2 Delivery O2 Flow Rate FiO2 02/07/25 18:19 98.4 82 15 126/76 (93) 98 98.4 02/07/25 11:31 Room Air Physical Exam Generally 75 years old woman, well nourished well developed. Mild distress HEENT-atraumatic, normocephalic Heart-regular rate and rhythm Lungs clear to auscultate Abdomen soft, mild tender, nondistended Musculoskeletal-no edema cyanosis Neuro-AO x3, no focal deficits SEPSIS Sepsis Screen Date sepsis recognized/suspect: Feb 07, 2025 Time Sepsis recognized/suspect: 954 Recent Procedure: No On Antibiotic Therapy: No Respiratory Rate >20: No Heart Rate >90: No Temp<36 C (96.8 F) or >38.3 C: No SBP <90 or MAP <65 mmHG: No New Acute Mental Status Change: No Is the patient on CPAP, BIPAP,: No Physician Orders Clostridium Difficile Toxin (02/07/25 10:05) Ova & Parasite Exam (02/07/25 10:05) Stool Occult Blood (02/07/25 10:05) Stool Wbc (02/07/25 10:05) Ct Ab Pel Wo Con-No Oral Or Iv (02/07/25 11:26) Heplock Iv (02/07/25 ) Vital Signs Date Time Temp Pulse Resp B/P (MAP) Pulse Ox O2 Delivery O2 Flow Rate FiO2 02/07/25 18:19 98.4 82 15 126/76 (93) 98 98.4 02/07/25 15:16 97.9 75 16 127/68 (87) 96 97.9 02/07/25 13:32 97.8 76 16 149/71 (97) 95 97.8 02/07/25 11:31 98.1 77 16 154/72 (99) 97 98.1 02/07/25 11:31 77 16 97 Room Air 02/07/25 09:55 98.4 82 17 167/82 (110) 95 98.4 Laboratory Tests Test 02/07/25 10:22 Lactic Acid Level 1.1 mmol/L (0.4-2.0) White Blood Count 11.7 10^3/uL (4.4-10.8) H Medications Medications Dose Ordered Sig/Dorothy Route Start Time Stop Time Status Last Admin Dose Admin Ceftriaxone Sodium 50 ml @ 100 mls/hr ONCE ONCE IV 02/07/25 12:30 02/07/25 12:59 DC 02/07/25 13:18 Results Labs Test 02/07/25 10:22 02/07/25 10:02 Range/Units White Blood Count 11.7 H 4.4-10.8 10^3/uL Red Blood Count 4.41 4.0-5.20 10^6/uL Hemoglobin 13.4 12.2-16.2 g/dL Hematocrit 39.6 36.0-46.0 % Mean Corpuscular Volume 89.9 80.0-100.0 fL Mean Corpuscular Hemoglobin 30.4 28.0-32.0 pg Mean Corpuscular Hemoglobin Concent 33.8 32.0-36.0 g/dL Red Cell Distribution Width 13.9 11.8-14.3 % Platelet Count 340 140-450 10^3/uL Mean Platelet Volume 7.1 6.9-10.8 fL Neutrophils (%) (Auto) 71.7 37.0-80.0 % Lymphocytes (%) (Auto) 22.0 10.0-50.0 % Monocytes (%) (Auto) 4.7 0.0-12.0 % Eosinophils (%) (Auto) 0.8 0.0-7.0 % Basophils (%) (Auto) 0.8 0.0-2.0 % Neutrophils # (Auto) 8.4 1.6-8.6 10 ^3/uL Lymphocytes # (Auto) 2.6 0.4-5.4 10 ^3/uL Monocytes # (Auto) 0.6 0-1.3 10 ^3/uL Eosinophils # (Auto) 0.1 0-0.8 10 ^3/uL Basophils # (Auto) 0.1 0-0.2 10 ^3/uL Nucleated Red Blood Cells 0.0 % Sodium Level 140 136-145 mmol/L Potassium Level 4.1 3.5-5.1 mmol/L Chloride Level 105 98-107 mmol/L Carbon Dioxide Level 25 20-31 mmol/L Anion Gap 10 5-15 Blood Urea Nitrogen 20 9-23 mg/dL Creatinine 1.70 H 0.550-1.02 mg/dL Glomerular Filtration Rate Calc 32 >90 mL/min BUN/Creatinine Ratio 11.8 10.0-20.0 Serum Glucose 113 H 74-106 mg/dL Lactic Acid Level 1.1 0.4-2.0 mmol/L Calcium Level 9.5 8.7-10.4 mg/dL Total Bilirubin 0.2 0.2-1.0 mg/dL Aspartate Amino Transferase (AST) 23 13-40 U/L Alanine Aminotransferase (ALT) 19 7-40 U/L Alkaline Phosphatase 156 H 46-116 U/L Total Protein 7.9 5.7-8.2 g/dL Albumin 4.5 3.2-4.8 g/dL Urine Color Dark yellow Yellow Urine Clarity Ex.turbid Clear Urine pH 6.5 5.0-9.0 Urine Specific [place] 1.015 1.001-1.035 Urine Protein 3+ H Negative Urine Ketones Negative Negative Urine Blood 1+ H Negative /uL Urine Nitrite Negative Negative Urine Bilirubin Negative Negative Urine Urobilinogen Normal Negative mg/dL Urine Leukocyte Esterase 3+ Negative /uL Urine RBC 18 0 - 4 /hpf Urine WBC Clumps Present None Seen /hpf Urine Microscopic WBC 873 H 0-5 /HPF Urine Squamous Epithelial Cells Few <5 /hpf Urine Bacteria None seen None Seen /hpf Urine Glucose Normal Normal mg/dL Primary Diagnosis Diarrhea Acute urinary tract infection AMANDA on CKD Plan Start ceftriaxone 1 g q.day for urinary tract infection. Check urine culture IV fluids for hydration Ultrasound kidney to assess for AMANDA Check urine sodium, urine creatinine Rule out C diff Resume home meds Full code Heparin for DVT prophylaxis No GI prophylaxis needed Plan discussed with: Patient Problems List: (1) UTI (urinary tract infection) Status: Acute (2) Diarrhea Status: Acute Date of Service: Feb 07, 2025 Billing Provider: ESTEBAN RICKS MD Common Visit Codes: [id number] INP/OBS CARE (MOD) ESTEBAN RICKS MD Feb 07, 2025 18:29
[2025-02-07] MEDS ORDERED: DEXTROSE (50%) 50ML SYRG IV PRN (18:45)
--- NOTE | 2025-02-07 19:06 | DVH ---
INDICATION: stacey on ckd TECHNIQUE: Multiple real-time sonographic images of the kidneys and bladder were obtained. COMPARISON: US KIDNEY on DOS: 10/06/23 FINDINGS: RIGHT kidney measures 10.5 cm in length. No hydronephrosis. LEFT kidney measures 10.1 cm in length. No hydronephrosis. No large intraluminal masses are seen in the bladder. Prevoid bladder volume 103 mL. Patient did not void. IMPRESSION: 1. 10.5 cm long right kidney; 10.1 cm long left kidney 2. No hydronephrosis; no renal calculi visualized.
[2025-02-07] MEDS: FUROSEMIDE 20 MG TAB PO SCH (19:22)
[2025-02-07] MEDS: HYDROcodone-ACET 5/325MG TAB PO PRN (19:23)
[2025-02-07] MEDS: ONDANSETRON HCL 4 MG/2 ML VIAL IV PRN (19:23)
[2025-02-07 19:50] VITALS: PULSE 83; RESP 16; O2SAT 94
[2025-02-07 20:31] VITALS: BP 120/95; PULSE 75; RESP 16; TEMP 98.1; O2SAT 93
[2025-02-07 20:42] VITALS: BP 128/95; PULSE 75; RESP 16; TEMP 98.1; O2SAT 93
[2025-02-07 21:00] VITALS: BP 120/95; PULSE 77; RESP 18; TEMP 98.1; O2SAT 93
[2025-02-07] MEDS: SODIUM CHLOR 0.9% PF (SALINE LOCK) 10ML VIAL/SYR IV SCH (21:04)
[2025-02-07] MEDS: ACCU-CHEK COMFORT CURVE STRIP VI SCH (21:05)
[2025-02-07] MEDS: InsuLIN REG 1unit/0.01ml Soln (100units/ml) SC SCH (21:10)
[2025-02-07 22:27] VITALS: PULSE 75; RESP 16; O2SAT 95
[2025-02-08] VITALS (8 sets, daily range): BP systolic 137–164; BP diastolic 64–84; PULSE 72–87; RESP 17–20; TEMP 96.9–98.1; O2SAT 90–98
[2025-02-08] MEDS: InsuLIN REG 1unit/0.01ml Soln (100units/ml) SC SCH ×2 (05:51→17:00)
[2025-02-08] MEDS: INSULIN LISPRO (HUMAN) 100 UNITS/ML ML SC SCH (05:55)
[2025-02-08 08:11] LABS: Hematocrit 34.3 % (36.0-46.0); Hemoglobin 12.0 g/dL (12.2-16.2); Mean Corpuscular Hemoglobin 30.9 pg (28.0-32.0); Mean Corpuscular Volume 88.8 fL (80.0-100.0); Nucleated Red Blood Cells % 0.1 %
[2025-02-08 08:28] LABS: Alanine Aminotransferase 16 U/L (7-40); Albumin 3.5 g/dL (3.2-4.8); Alkaline Phosphatase 122 U/L (46-116); Anion Gap 9 (5-15); BUN/Creatinine Ratio 11.6 (10.0-20.0); Blood Urea Nitrogen 22 mg/dL (9-23); Calcium 8.9 mg/dL (8.7-10.4); Carbon Dioxide 26 mmol/L (20-31); Chloride 106 mmol/L (98-107); Glucose 109 mg/dL (74-106); Potassium 3.6 mmol/L (3.5-5.1); Sodium 141 mmol/L (136-145); Total Protein 6.2 g/dL (5.7-8.2)
[2025-02-08 08:29] LABS: Bilirubin, Total 0.2 mg/dL (0.2-1.0)
[2025-02-08] MEDS: ACETAMINOPHEN 325 MG TAB PO PRN (09:27)
[2025-02-08] MEDS: PANTOPRAZOLE 40 MG TAB PO SCH (09:27)
[2025-02-08] MEDS: ASPirin-EC 81 mg tab PO SCH (09:27)
[2025-02-08] MEDS: cefTRIAXone 1GM/50ML D5W 50 ML IV SCH (09:28)
[2025-02-08] MEDS: DAPAGLIFLOZIN PROPANEDIOL 10 MG PO SCH (09:48)
[2025-02-08] MEDS: INSULIN LANTUS (GLARGINE) 1 /0.01ml (100units/ml) SC SCH (11:51)
[2025-02-08] MEDS ORDERED: DEXTROSE (50%) 50ML SYRG IV PRN (14:30)
--- NOTE | 2025-02-08 14:32 | DVHPN2 ---
Progress Note Date Seen: Feb 08, 2025 Medical Necessity Reason Pt with a Central, PICC or Fol: No Subjective Patient reports: No new complaints Review of Systems: HEENT:Normal, CVS:Normal, RESPIRATORY:Normal, GI:Normal, :Normal, MSK:Normal, NEURO:Normal Objective vital signs Vital Sign Date Time Temp Pulse Resp B/P (MAP) Pulse Ox O2 Delivery O2 Flow Rate FiO2 02/08/25 09:28 148/84 02/08/25 08:38 97.4 75 18 96 97.4 02/08/25 08:00 Nasal Cannula* 2 28 Total Intake and Output 02/07/25 02/07/25 02/08/25 15:00 23:00 07:00 Intake Total 52 ml 240 ml Balance 52 ml 240 ml medications Current Medications Medications Dose Ordered Sig/Dorothy Route Start Time Stop Time Status Last Admin Dose Admin Ceftriaxone Sodium 50 ml @ 100 mls/hr DAILY IV 02/08/25 10:00 02/08/25 09:28 100 MLS/HR Sodium Chloride 10 ml Q8HR IV 02/07/25 22:00 02/08/25 05:42 10 ML Docusate Sodium 100 mg BIDPRN PRN PO 02/07/25 18:30 Acetaminophen 650 mg Q6HP PRN PO 02/07/25 18:30 02/08/25 09:27 650 MG Acetaminophen/ Hydrocodone Bitart 1 tab Q4HP PRN PO 02/07/25 18:30 02/08/25 05:42 1 TAB Ondansetron HCl 4 mg Q4HP PRN IV 02/07/25 18:30 02/07/25 19:23 4 MG Aspirin 81 mg DAILY PO 02/08/25 10:00 02/08/25 09:27 81 MG Furosemide 20 mg BIDD PO 02/07/25 18:45 02/08/25 05:41 20 MG Nifedipine 30 mg DAILY PO 02/08/25 10:00 02/08/25 09:28 30 MG Pantoprazole Sodium 40 mg DAILY PO 02/08/25 10:00 02/08/25 09:27 40 MG Patient Own Medication 1 tab DAILY PO 02/08/25 10:00 Insulin Human Lispro 5 units TIDAC SC 02/08/25 07:00 02/08/25 11:50 5 UNITS Insulin Glargine 35 units DAILY@LUNCH SC 02/08/25 12:00 02/08/25 11:51 35 UNITS Patient Own Medication 1 tab DAILY PO 02/08/25 10:00 Diagnostic Test (Pha) 1 strip ACHS 02/07/25 22:00 02/08/25 11:36 1 STRIP Insulin Human Regular AC SC 02/08/25 07:00 02/08/25 11:50 4 UNITS Insulin Human Regular HS SC 02/07/25 22:00 02/07/25 21:10 2 UNITS Dextrose 50 ml UD PRN IV 02/07/25 18:45 Examination: GENERAL:Normal, HEENT:Normal, NECK:Normal, LUNGS:Normal, CVS:Normal, ABDOMEN:Normal, MSK:Normal, SKIN:Normal, NEURO:Normal, :Normal laboratory and microbiology Laboratory Tests 02/08/25 06:40 Test 02/08/25 06:40 Range/Units Serum Glucose 109 H 74-106 mg/dL Microbiology Date/Time Source Procedure Growth Status 02/07/25 10:02 Voided Urine Urine Culture - Preliminary Resulted Problem List/Assessment/Plan Problem List/Assessment/Plan #1 uti- gram neg rods ?sepsis: iv rocephin #2 dm: ssi, lantus #3 htn #4 acute on chronic renal failure ?vasomotor nephropathy #5 diarrhea: improved advance care planning- full code- time spent 19 mins Plan discussed with: Patient My Orders My Orders Orders - SG PAYAN MD Procedure Category Date Status Time Furosemide Tablet PHA 02/09/25 Verified (Lasix Tablet) 07:00 Glucose Blood PHA 02/08/25 Verified (Accu-Chek Comfort 17:00 Mild Sliding Scale PHA 02/08/25 Verified 17:00 Dextrose 50% Syringe PHA 02/08/25 Verified 14:30 Basic Metabolic Panel LAB 02/09/25 Verified 06:00 Complete Blood Count LAB 02/09/25 Verified 06:00 Chest Portable XY 02/08/25 Verified 14:25 Date of Service: Feb 08, 2025 Billing Provider: SG PAYAN MD Common Visit Codes: [id number] INP/OBS CARE(HIGH) Secondary Visit Codes: [id number] CARE PLAN 30 MINUTES SG PAYAN MD Feb 08, 2025 14:32
--- NOTE | 2025-02-08 15:13 | DVH ---
INDICATION: htn TECHNIQUE: Frontal view of the chest. COMPARISON: XY CHEST PORTABLE on DOS: 11/21/23, XY CHEST PORTABLE on DOS: 10/06/23, CHEST PORTABLE on DO S: 12/29/21, CXRP on DOS: 12/29/21 FINDINGS: . The heart and mediastinal contours are grossly unremarkable. There is no evidence of pleural disea se. The lungs are clear. The bony structures of the chest are intact without fracture. IMPRESSION: 1. No evidence of acute disease.
[2025-02-08] MEDS: ACCU-CHEK COMFORT CURVE STRIP VI SCH (17:00)
[2025-02-09] VITALS (8 sets, daily range): BP systolic 153–180; BP diastolic 64–88; PULSE 74–88; RESP 17–18; TEMP 97.8–98.5; O2SAT 92–100
[2025-02-09] MEDS: FUROSEMIDE 20 MG TAB PO SCH (05:53)
[2025-02-09 07:58] LABS: Hematocrit 36.8 % (36.0-46.0); Hemoglobin 12.7 g/dL (12.2-16.2); Mean Corpuscular Hemoglobin 30.7 pg (28.0-32.0); Mean Corpuscular Volume 89.0 fL (80.0-100.0); Nucleated Red Blood Cells % 0.1 %
[2025-02-09 08:10] LABS: Chloride 104 mmol/L (98-107); Potassium 3.9 mmol/L (3.5-5.1); Sodium 139 mmol/L (136-145)
[2025-02-09 08:11] LABS: Anion Gap 9 (5-15); Calcium 9.6 mg/dL (8.7-10.4); Carbon Dioxide 26 mmol/L (20-31)
[2025-02-09 08:16] LABS: BUN/Creatinine Ratio 10.4 (10.0-20.0); Blood Urea Nitrogen 20 mg/dL (9-23)
[2025-02-09 08:20] LABS: Glucose 124 mg/dL (74-106)
--- NOTE | 2025-02-09 18:43 | DVHPN2 ---
Subjective Seen in bed today Reviewed: H&P, Labs Changes from previous H/P or p: No Changes Objective Vitals Vital Signs Date Time Temp Pulse Resp B/P (MAP) Pulse Ox O2 Delivery O2 Flow Rate FiO2 02/09/25 17:00 97.9 82 17 159/87 (111) 99 97.9 02/09/25 08:00 Nasal Cannula* 2 28 Intake/Output Intake and Output 02/09/25 07:00 Intake Total 830 ml Output Total 300 ml Balance 530 ml Intake Oral 780 ml IV Total 50 ml Output Urine Total 300 ml # Voids 3 General Appearance: Alert HEENT: Atraumatic Lungs: Clear to auscultation Cardiovascular: Regular rate, Normal S1, Normal S2 Abdomen: Normal bowel sounds Medications Current Medications Medications Dose Ordered Sig/Dorothy Route Start Time Stop Time Status Last Admin Dose Admin Ceftriaxone Sodium 50 ml @ 100 mls/hr DAILY IV 02/08/25 10:00 02/09/25 10:14 100 MLS/HR Sodium Chloride 10 ml Q8HR IV 02/07/25 22:00 02/09/25 15:00 10 ML Docusate Sodium 100 mg BIDPRN PRN PO 02/07/25 18:30 Acetaminophen 650 mg Q6HP PRN PO 02/07/25 18:30 02/08/25 21:08 650 MG Acetaminophen/ Hydrocodone Bitart 1 tab Q4HP PRN PO 02/07/25 18:30 02/08/25 05:42 1 TAB Ondansetron HCl 4 mg Q4HP PRN IV 02/07/25 18:30 02/07/25 19:23 4 MG Aspirin 81 mg DAILY PO 02/08/25 10:00 02/09/25 10:14 81 MG Nifedipine 30 mg DAILY PO 02/08/25 10:00 02/09/25 10:14 30 MG Pantoprazole Sodium 40 mg DAILY PO 02/08/25 10:00 02/09/25 10:14 40 MG Insulin Glargine 35 units DAILY@LUNCH SC 02/08/25 12:00 02/09/25 11:27 35 UNITS Diagnostic Test (Pha) 1 strip ACHS 02/07/25 22:00 02/08/25 17:32 1 STRIP Insulin Human Regular HS SC 02/07/25 22:00 02/07/25 21:10 2 UNITS Dextrose 50 ml UD PRN IV 02/07/25 18:45 Furosemide 20 mg QAM PO 02/09/25 07:00 02/09/25 05:53 20 MG Diagnostic Test (Pha) 1 strip ACHS 02/08/25 17:00 02/09/25 17:09 1 STRIP Insulin Human Regular ACHS SC 02/08/25 17:00 02/09/25 11:27 6 UNITS Dextrose 50 ml UD PRN IV 02/08/25 14:30 Laboratory Results Laboratory Tests 02/09/25 07:04 Chemistry Test 02/09/25 07:04 Calcium Level 9.6 mg/dL (8.7-10.4) HgA1c, TSH Test 02/09/25 07:04 Hemoglobin A1c 8.3 % A1C (<5.7) H Urinalysis Test 02/07/25 10:02 Urine Color Dark yellow (Yellow) Urine Clarity Ex.turbid (Clear) Urine pH 6.5 (5.0-9.0) Urine Specific [place] 1.015 (1.001-1.035) Urine Protein 3+ (Negative) H Urine Ketones Negative (Negative) Urine Blood 1+ /uL (Negative) H Urine Nitrite Negative (Negative) Urine Bilirubin Negative (Negative) Urine Urobilinogen Normal mg/dL (Negative) Urine Leukocyte Esterase 3+ /uL (Negative) Urine RBC 18 /hpf (0 - 4) Urine WBC Clumps Present /hpf (None Seen) Urine Microscopic WBC 873 /HPF (0-5) H Urine Squamous Epithelial Cells Few /hpf (<5) Urine Bacteria None seen /hpf (None Seen) Urine Creatinine 102.56 mg/dL (30.0-125.0) Urine Sodium 85 mmol/L (40-220) Urine Glucose Normal mg/dL (Normal) Microbiology Microbiology Date/Time Source Procedure Growth Status 02/07/25 21:00 Nose MRSA Screen - Final Methicillin Resistant S.aureus Complete 02/07/25 10:02 Voided Urine Urine Culture - Final Escherichia coli - ESBL Complete Assessment/Plan Assessment/Plan #1 uti- gram neg rods ?sepsis: Urine cx grew ESBL stop rocephin and start zosyn per sensitivities #2 dm: ssi, lantus #3 htn #4 acute on chronic renal failure ?vasomotor nephropathy #5 diarrhea: improved Plan discussed with: Patient Date of Service: Feb 09, 2025 Billing Provider: SHASHA TORRES MD Common Visit Codes: [id number] INP/OBS CARE(HIGH) SHASHA TORRES MD Feb 09, 2025 18:43
[2025-02-09] MEDS: LISINOPRIL 20 MG TAB PO ONE (21:32)
[2025-02-09] MEDS: PIPERACILLIN-TAZOB 3.375GM 100 ML IV SCH (22:03)
[2025-02-10] VITALS (8 sets, daily range): BP systolic 138–182; BP diastolic 60–76; PULSE 69–90; RESP 15–20; TEMP 96.6–98.6; O2SAT 90–100
[2025-02-10] MEDS: LISINOPRIL 20 MG TAB PO SCH (09:33)
[2025-02-10] MEDS: DOCUSATE SOD 100 MG CAP PO PRN (17:45)
--- NOTE | 2025-02-10 18:52 | DVHPN2 ---
Subjective I am assuming the care of the patient from today onwards. Patient denies any complaints. 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 General Appearance: Alert HEENT: Atraumatic Lungs: Clear to auscultation Cardiovascular: Regular rate, Normal S1, Normal S2 Abdomen: Normal bowel sounds Medications Current Medications Medications Dose Ordered Sig/Dorothy Route Start Time Stop Time Status Last Admin Dose Admin Sodium Chloride 10 ml Q8HR IV 02/07/25 22:00 02/10/25 14:00 10 ML Docusate Sodium 100 mg BIDPRN PRN PO 02/07/25 18:30 02/10/25 17:45 100 MG Acetaminophen 650 mg Q6HP PRN PO 02/07/25 18:30 02/09/25 20:44 650 MG Acetaminophen/ Hydrocodone Bitart 1 tab Q4HP PRN PO 02/07/25 18:30 02/08/25 05:42 1 TAB Ondansetron HCl 4 mg Q4HP PRN IV 02/07/25 18:30 02/07/25 19:23 4 MG Aspirin 81 mg DAILY PO 02/08/25 10:00 02/10/25 09:34 81 MG Nifedipine 30 mg DAILY PO 02/08/25 10:00 02/10/25 09:34 30 MG Pantoprazole Sodium 40 mg DAILY PO 02/08/25 10:00 02/10/25 09:34 40 MG Insulin Glargine 35 units DAILY@LUNCH SC 02/08/25 12:00 02/10/25 12:00 35 UNITS Diagnostic Test (Pha) 1 strip ACHS 02/07/25 22:00 02/10/25 17:00 1 STRIP Furosemide 20 mg QAM PO 02/09/25 07:00 02/10/25 05:53 20 MG Diagnostic Test (Pha) 1 strip ACHS 02/08/25 17:00 02/10/25 17:00 1 STRIP Insulin Human Regular ACHS SC 02/08/25 17:00 02/10/25 17:00 3 UNITS Dextrose 50 ml UD PRN IV 02/08/25 14:30 Piperacillin Sod/ Tazobactam Sod 100 ml @ 25 mls/hr Q8HR IV 02/09/25 22:00 02/10/25 15:40 25 MLS/HR Clonidine HCl 0.1 mg Q4HP PRN PO 02/09/25 20:15 02/10/25 15:46 0.1 MG Lisinopril 20 mg DAILY PO 02/10/25 10:00 02/10/25 09:33 20 MG Laboratory Results Laboratory Tests 02/09/25 07:04 Urinalysis Test 02/07/25 10:02 Urine Color Dark yellow (Yellow) Urine Clarity Ex.turbid (Clear) Urine pH 6.5 (5.0-9.0) Urine Specific [place] 1.015 (1.001-1.035) Urine Protein 3+ (Negative) H Urine Ketones Negative (Negative) Urine Blood 1+ /uL (Negative) H Urine Nitrite Negative (Negative) Urine Bilirubin Negative (Negative) Urine Urobilinogen Normal mg/dL (Negative) Urine Leukocyte Esterase 3+ /uL (Negative) Urine RBC 18 /hpf (0 - 4) Urine WBC Clumps Present /hpf (None Seen) Urine Microscopic WBC 873 /HPF (0-5) H Urine Squamous Epithelial Cells Few /hpf (<5) Urine Bacteria None seen /hpf (None Seen) Urine Creatinine 102.56 mg/dL (30.0-125.0) Urine Sodium 85 mmol/L (40-220) Urine Glucose Normal mg/dL (Normal) Microbiology Microbiology Date/Time Source Procedure Growth Status 02/07/25 21:00 Nose MRSA Screen - Final Methicillin Resistant S.aureus Complete 02/07/25 10:02 Voided Urine Urine Culture - Final Escherichia coli - ESBL Complete Assessment/Plan Assessment/Plan 74-year-old female with a known history of diabetes mellitus type 2, hypertension, CKD initially admitted to the hospital with the abdominal pain and diarrhea found to have 1. Sepsis secondary to Gram-negative UTI 2. ESBL UTI 3. Diarrhea resolved 4. Diabetes mellitus type 2 5. Hypertension 6. 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 Plan discussed with: Patient Date of Service: Feb 10, 2025 Billing Provider: ROSI BERGMAN MD Common Visit Codes: [id number] INP/OBS CARE(MOD) ROSI BERGMAN MD Feb 10, 2025 18:52
[2025-02-11] VITALS (8 sets, daily range): BP systolic 140–187; BP diastolic 57–100; PULSE 70–82; RESP 14–18; TEMP 97.5–98.7; O2SAT 91–100
[2025-02-11] MEDS: ERTAPENEM SOD INJ 0.5 GM in SODIUM CHL 0.9% 50 ML IV SCH (10:15)
[2025-02-11] MEDS: hydrALAZINE HCL 20 MG/ML VL IV PRN (12:41)
--- NOTE | 2025-02-11 16:48 | MEDREC ---
[facility] Intervention Section I [facility] Intervention: Review courses of therapy (MRSA SCREEN POSITIVE CONSIDER ADDING MUPIROCIN 2% OINTMENT 1 APPLICATION IN EACH NOSTRIL BID FOR 5 DAYS ) SURESH BERGERON PHARMACIST Feb 11, 2025 16:48
--- NOTE | 2025-02-11 17:18 | DVHPN2 ---
Subjective Patient is complaining of lower abdominal pain. 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 General Appearance: Alert HEENT: Atraumatic Lungs: Clear to auscultation Cardiovascular: Regular rate, Normal S1, Normal S2 Abdomen: Normal bowel sounds Medications Current Medications Medications Dose Ordered Sig/Dorothy Route Start Time Stop Time Status Last Admin Dose Admin Sodium Chloride 10 ml Q8HR IV 02/07/25 22:00 02/11/25 14:00 10 ML Docusate Sodium 100 mg BIDPRN PRN PO 02/07/25 18:30 02/10/25 17:45 100 MG Acetaminophen 650 mg Q6HP PRN PO 02/07/25 18:30 02/11/25 05:22 650 MG Acetaminophen/ Hydrocodone Bitart 1 tab Q4HP PRN PO 02/07/25 18:30 02/08/25 05:42 1 TAB Ondansetron HCl 4 mg Q4HP PRN IV 02/07/25 18:30 02/07/25 19:23 4 MG Aspirin 81 mg DAILY PO 02/08/25 10:00 02/11/25 10:28 81 MG Nifedipine 30 mg DAILY PO 02/08/25 10:00 02/11/25 10:29 30 MG Pantoprazole Sodium 40 mg DAILY PO 02/08/25 10:00 02/11/25 10:28 40 MG Insulin Glargine 35 units DAILY@LUNCH SC 02/08/25 12:00 02/11/25 12:27 35 UNITS Diagnostic Test (Pha) 1 strip ACHS 02/07/25 22:00 02/11/25 11:30 1 STRIP Furosemide 20 mg QAM PO 02/09/25 07:00 02/11/25 05:41 20 MG Diagnostic Test (Pha) 1 strip ACHS 02/08/25 17:00 02/11/25 11:30 1 STRIP Insulin Human Regular ACHS SC 02/08/25 17:00 02/11/25 11:30 6 UNITS Dextrose 50 ml UD PRN IV 02/08/25 14:30 Lisinopril 20 mg DAILY PO 02/10/25 10:00 02/11/25 10:28 20 MG Ertapenem 0.5 gm/ Sodium Chloride 50 ml @ 100 mls/hr DAILY IV 02/11/25 10:15 02/11/25 10:15 100 MLS/HR Hydralazine HCl 10 mg Q6HP PRN IV 02/11/25 12:45 02/11/25 12:41 10 MG Laboratory Results Laboratory Tests 02/09/25 07:04 Urinalysis Test 02/07/25 10:02 Urine Color Dark yellow (Yellow) Urine Clarity Ex.turbid (Clear) Urine pH 6.5 (5.0-9.0) Urine Specific [place] 1.015 (1.001-1.035) Urine Protein 3+ (Negative) H Urine Ketones Negative (Negative) Urine Blood 1+ /uL (Negative) H Urine Nitrite Negative (Negative) Urine Bilirubin Negative (Negative) Urine Urobilinogen Normal mg/dL (Negative) Urine Leukocyte Esterase 3+ /uL (Negative) Urine RBC 18 /hpf (0 - 4) Urine WBC Clumps Present /hpf (None Seen) Urine Microscopic WBC 873 /HPF (0-5) H Urine Squamous Epithelial Cells Few /hpf (<5) Urine Bacteria None seen /hpf (None Seen) Urine Creatinine 102.56 mg/dL (30.0-125.0) Urine Sodium 85 mmol/L (40-220) Urine Glucose Normal mg/dL (Normal) Microbiology Microbiology Date/Time Source Procedure Growth Status 02/07/25 21:00 Nose MRSA Screen - Final Methicillin Resistant S.aureus Complete 02/07/25 10:02 Voided Urine Urine Culture - Final Escherichia coli - ESBL Complete Assessment/Plan Assessment/Plan 74-year-old female with a known history of diabetes mellitus type 2, hypertension, CKD initially admitted to the hospital with the abdominal pain and diarrhea found to have 1. Sepsis secondary to Gram-negative UTI 2. ESBL UTI 3. Diarrhea resolved 4. Diabetes mellitus type 2 5. Hypertension 6. 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 Plan discussed with: Patient My Orders Orders - ROSI BERGMAN MD Procedure Category Date Status Time Ertapenem Sod Inj PHA 02/11/25 In Process (Invanz) 10:15 Clarification Of ORDERS 02/11/25 Transmitted Order: 10:09 Hydralazine Injection PHA 02/11/25 In Process (Apresoline Inject 12:45 Basic Metabolic Panel LAB 02/12/25 Verified 06:00 Complete Blood Count LAB 02/12/25 Verified 06:00 Magnesium LAB 02/12/25 Verified 06:00 Date of Service: Feb 11, 2025 Billing Provider: ROSI BERGMAN MD Common Visit Codes: [id number] INP/OBS CARE(MOD) ROSI BERGMAN MD Feb 11, 2025 17:18
[2025-02-12] VITALS (7 sets, daily range): BP systolic 123–164; BP diastolic 68–89; PULSE 74–81; RESP 15–20; TEMP 98.1–98.6; O2SAT 92–99
[2025-02-12 05:29] LABS: Hematocrit 37.6 % (36.0-46.0); Hemoglobin 12.6 g/dL (12.2-16.2); Mean Corpuscular Hemoglobin 30.0 pg (28.0-32.0); Mean Corpuscular Volume 89.4 fL (80.0-100.0); Nucleated Red Blood Cells % 0.0 %
[2025-02-12 05:38] LABS: Chloride 104 mmol/L (98-107); Potassium 4.0 mmol/L (3.5-5.1); Sodium 139 mmol/L (136-145)
[2025-02-12 05:39] LABS: Anion Gap 8 (5-15); Carbon Dioxide 27 mmol/L (20-31)
[2025-02-12 05:40] LABS: Calcium 9.2 mg/dL (8.7-10.4)
[2025-02-12 05:44] LABS: BUN/Creatinine Ratio 11.2 (10.0-20.0); Blood Urea Nitrogen 18 mg/dL (9-23); Glucose 78 mg/dL (74-106)
[2025-02-12 05:45] LABS: Magnesium 1.9 mg/dL (1.6-2.6)
--- NOTE | 2025-02-12 16:45 | DVHPN2 ---
Subjective Patient is complaining of lower abdominal pain. 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 General Appearance: Alert HEENT: Atraumatic Lungs: Clear to auscultation Cardiovascular: Regular rate, Normal S1, Normal S2 Abdomen: Normal bowel sounds Medications Current Medications Medications Dose Ordered Sig/Dorothy Route Start Time Stop Time Status Last Admin Dose Admin Sodium Chloride 10 ml Q8HR IV 02/07/25 22:00 02/12/25 15:21 10 ML Docusate Sodium 100 mg BIDPRN PRN PO 02/07/25 18:30 02/12/25 11:45 100 MG Acetaminophen 650 mg Q6HP PRN PO 02/07/25 18:30 02/12/25 10:33 650 MG Acetaminophen/ Hydrocodone Bitart 1 tab Q4HP PRN PO 02/07/25 18:30 02/08/25 05:42 1 TAB Ondansetron HCl 4 mg Q4HP PRN IV 02/07/25 18:30 02/11/25 22:12 4 MG Aspirin 81 mg DAILY PO 02/08/25 10:00 02/12/25 10:18 81 MG Nifedipine 30 mg DAILY PO 02/08/25 10:00 02/12/25 10:19 30 MG Pantoprazole Sodium 40 mg DAILY PO 02/08/25 10:00 02/12/25 10:19 40 MG Insulin Glargine 35 units DAILY@LUNCH SC 02/08/25 12:00 02/11/25 12:27 35 UNITS Furosemide 20 mg QAM PO 02/09/25 07:00 02/12/25 06:46 20 MG Diagnostic Test (Pha) 1 strip ACHS 02/08/25 17:00 02/12/25 06:45 1 STRIP Insulin Human Regular ACHS SC 02/08/25 17:00 02/11/25 11:30 6 UNITS Dextrose 50 ml UD PRN IV 02/08/25 14:30 Lisinopril 20 mg DAILY PO 02/10/25 10:00 02/12/25 10:19 20 MG Ertapenem 0.5 gm/ Sodium Chloride 50 ml @ 100 mls/hr DAILY IV 02/11/25 10:15 02/12/25 10:19 100 MLS/HR Hydralazine HCl 10 mg Q6HP PRN IV 02/11/25 12:45 02/12/25 13:40 10 MG Laboratory Results Laboratory Tests 02/12/25 04:46 Chemistry Test 02/12/25 04:46 Calcium Level 9.2 mg/dL (8.7-10.4) Magnesium Level 1.9 mg/dL (1.6-2.6) Urinalysis Test 02/07/25 10:02 Urine Color Dark yellow (Yellow) Urine Clarity Ex.turbid (Clear) Urine pH 6.5 (5.0-9.0) Urine Specific [place] 1.015 (1.001-1.035) Urine Protein 3+ (Negative) H Urine Ketones Negative (Negative) Urine Blood 1+ /uL (Negative) H Urine Nitrite Negative (Negative) Urine Bilirubin Negative (Negative) Urine Urobilinogen Normal mg/dL (Negative) Urine Leukocyte Esterase 3+ /uL (Negative) Urine RBC 18 /hpf (0 - 4) Urine WBC Clumps Present /hpf (None Seen) Urine Microscopic WBC 873 /HPF (0-5) H Urine Squamous Epithelial Cells Few /hpf (<5) Urine Bacteria None seen /hpf (None Seen) Urine Creatinine 102.56 mg/dL (30.0-125.0) Urine Sodium 85 mmol/L (40-220) Urine Glucose Normal mg/dL (Normal) Microbiology Microbiology Date/Time Source Procedure Growth Status 02/07/25 21:00 Nose MRSA Screen - Final Methicillin Resistant S.aureus Complete 02/07/25 10:02 Voided Urine Urine Culture - Final Escherichia coli - ESBL Complete Assessment/Plan Assessment/Plan 74-year-old female with a known history of diabetes mellitus type 2, hypertension, CKD initially admitted to the hospital with the abdominal pain and diarrhea found to have 1. Sepsis secondary to Gram-negative UTI 2. ESBL UTI 3. Diarrhea resolved 4. Diabetes mellitus type 2 5. Hypertension 6. 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 Leukocytosis likely reactive -IV antibiotics, midline, PT evaluation and treatment, keep the isolation. Plan discussed with: Patient My Orders Orders - ROSI BERGMAN MD Procedure Category Date Status Time Insert Midline ORDERS 02/12/25 Transmitted 14:24 Date of Service: Feb 12, 2025 Billing Provider: ROSI BERGMAN MD Common Visit Codes: [id number] INP/OBS CARE(MOD) ROSI BERGMAN MD Feb 12, 2025 16:45
[2025-02-13 05:00] VITALS: BP 148/67; PULSE 81; RESP 18; TEMP 98.4; O2SAT 95
[2025-02-13 09:00] VITALS: BP 164/55; PULSE 85; RESP 20; TEMP 98.2; O2SAT 97
--- NOTE | 2025-02-13 11:08 | DVHINCON2 ---
Date of service: Feb 12, 2025 Family History: Cardiovascular disease G8 MOTHER Diabetes mellitus 19 CHILD Unknown family medical history Allergies: Coded Allergies: NO KNOWN ALLERGIES (Unverified , 12/29/21) Home Meds Active Scripts Promethazine-Dm (Promethazine Dm 6.25-15 mg/5Ml) 1 Brenda Brenda, 5 ML PO TID PRN for 10 Days, #150 ML 0 Refills Prov:JOSETTE GORDON TRUSS PULLER HELPER 07/11/24 Acetaminophen (Acetaminophen) 500 Mg Tab, 500 MG PO Q6HP PRN for 10 Days, #40 TAB 0 Refills Prov:JOSETTE GORDON TRUSS PULLER HELPER 07/11/24 Oseltamivir Phosphate (Tamiflu) 75 Mg Cap, 75 MG PO BID for 5 Days, #10 CAP 0 Refills Prov:JOSETTE GORDON TRUSS PULLER HELPER 07/11/24 Pantoprazole Sodium Sesquihydr (Protonix) 40 Mg Tab, 40 MG PO DAILY, #30 TAB Prov:TEJAL BRUNSON MD 11/21/23 Metoclopramide Hcl (Reglan) 10 Mg Tab, 10 MG PO TID, #20 TAB Prov:TEJAL BRUNSON MD 11/21/23 Acetaminophen (Acetaminophen) 500 Mg Tab, 500 MG PO TID, #20 TAB Prov:TEJAL BRUNSON MD 11/21/23 Ibuprofen Micronized (Ibuprofen) 600 Mg Tab, 600 MG PO TID PRN for 10 Days, #30 TAB Prov:MARCELLA ANTUNEZ DO 10/10/23 Azithromycin (Azithromycin) 250 Mg Tab, 250 MG PO DAILY MDD 500 for 5 Days, #6 T AB 0 Refills 2 TABLETS ORALLY ON DAY ONE, THEN 1 TABLET ORALLY DAILY FOR 4 DAYS Prov:MARCELLA ANTUNEZ DO 10/10/23 Aspirin (Aspirin Low Dose) 81 Mg Tab, 81 MG PO DAILY for 30 Days, #30 TAB 3 Refills Prov:MARCELLA ANTUNEZ DO 10/10/23 Pantoprazole Sodium Sesquihydr (Protonix) 40 Mg Tab, 40 MG PO DAILY for 30 Days, #30 TAB Prov:ALMA GARCIA MD 09/08/21 Reported Medications Dapagliflozin Propanediol (Farxiga) 10 Mg Tab, 1 TAB PO DAILY 10/07/23 Nifedipine (Nifedipine Er) 30 Mg Tab, 1 TAB PO DAILY, #90 TAB 1 Refill 3/21/24 Linagliptin Base (TRADJENTA) 5 Mg Tab, 1 TAB PO DAILY, #90 TAB 1 Refill 10/07/23 Insulin Glargine (Basaglar Kwikpen) 100 Unit/Ml Inj, 35 UNIT SUBCUT DAILY@LUNCH, INJ 10/07/23 Insulin Aspart (Novolog) 100 Unit/Ml Inj, 5 UNIT SC TIDAC 10/07/23 Furosemide (Furosemide) 20 Mg Tab, 20 MG PO BID, TAB 12/30/21 Vital Signs Vital Signs Date Time Temp Pulse Resp B/P (MAP) Pulse Ox O2 Delivery O2 Flow Rate FiO2 02/13/25 09:56 174/60 02/13/25 08:00 Room Air* 0 21 02/13/25 05:00 98.4 81 18 95 98.4 Labs/Diagnostic Data Labs Test 02/13/25 05:58 02/12/25 04:46 02/09/25 07:04 02/08/25 06:40 Range/Units POC Glucose 126 H 70-106 mg/dl White Blood Count 12.2 #H 4.4-10.8 10^3/uL Red Blood Count 4.20 4.0-5.20 10^6/uL Hemoglobin 12.6 12.2-16.2 g/dL Hematocrit 37.6 36.0-46.0 % Mean Corpuscular Volume 89.4 80.0-100.0 fL Mean Corpuscular Hemoglobin 30.0 28.0-32.0 pg Mean Corpuscular Hemoglobin Concent 33.5 32.0-36.0 g/dL Red Cell Distribution Width 13.9 11.8-14.3 % Platelet Count 305 140-450 10^3/uL Mean Platelet Volume 7.7 6.9-10.8 fL Neutrophils (%) (Auto) 70.5 37.0-80.0 % Lymphocytes (%) (Auto) 20.9 10.0-50.0 % Monocytes (%) (Auto) 6.4 0.0-12.0 % Eosinophils (%) (Auto) 1.5 0.0-7.0 % Basophils (%) (Auto) 0.7 0.0-2.0 % Neutrophils # (Auto) 8.6 1.6-8.6 10 ^3/uL Lymphocytes # (Auto) 2.6 0.4-5.4 10 ^3/uL Monocytes # (Auto) 0.8 0-1.3 10 ^3/uL Eosinophils # (Auto) 0.2 0-0.8 10 ^3/uL Basophils # (Auto) 0.1 0-0.2 10 ^3/uL Nucleated Red Blood Cells 0.0 % Sodium Level 139 136-145 mmol/L Potassium Level 4.0 3.5-5.1 mmol/L Chloride Level 104 98-107 mmol/L Carbon Dioxide Level 27 20-31 mmol/L Anion Gap 8 5-15 Blood Urea Nitrogen 18 9-23 mg/dL Creatinine 1.61 H 0.550-1.02 mg/dL Glomerular Filtration Rate Calc 34 >90 mL/min BUN/Creatinine Ratio 11.2 10.0-20.0 Serum Glucose 78 74-106 mg/dL Calcium Level 9.2 8.7-10.4 mg/dL Magnesium Level 1.9 1.6-2.6 mg/dL Hemoglobin A1c 8.3 H <5.7 % A1C Total Bilirubin 0.2 0.2-1.0 mg/dL Aspartate Amino Transferase (AST) 21 13-40 U/L Alanine Aminotransferase (ALT) 16 7-40 U/L Alkaline Phosphatase 122 H 46-116 U/L Total Protein 6.2 5.7-8.2 g/dL Albumin 3.5 3.2-4.8 g/dL Test 02/07/25 10:22 02/07/25 10:02 Range/Units Lactic Acid Level 1.1 0.4-2.0 mmol/L Urine Color Dark yellow Yellow Urine Clarity Ex.turbid Clear Urine pH 6.5 5.0-9.0 Urine Specific [place] 1.015 1.001-1.035 Urine Protein 3+ H Negative Urine Ketones Negative Negative Urine Blood 1+ H Negative /uL Urine Nitrite Negative Negative Urine Bilirubin Negative Negative Urine Urobilinogen Normal Negative mg/dL Urine Leukocyte Esterase 3+ Negative /uL Urine RBC 18 0 - 4 /hpf Urine WBC Clumps Present None Seen /hpf Urine Microscopic WBC 873 H 0-5 /HPF Urine Squamous Epithelial Cells Few <5 /hpf Urine Bacteria None seen None Seen /hpf Urine Creatinine 102.56 30.0-125.0 mg/dL Urine Sodium 85 40-220 mmol/L Urine Glucose Normal Normal mg/dL Microbiology Date/Time Source Procedure Growth Status 02/07/25 21:00 Nose MRSA Screen - Final Methicillin Resistant S.aureus Complete 02/07/25 10:02 Voided Urine Urine Culture - Final Escherichia coli - ESBL Complete Problems(with codes): (1) Diarrhea (2) Influenza A (3) Pneumonia (4) Sepsis (5) Leukocytosis (6) Chronic kidney disease Plan/Recommendation ASSESSMENT AND PLAN: ID Problem List: \-- Diarrheal illness, resolved \-- ESBL E. coli urinary tract infection \-- Acute kidney injury (AMANDA) on chronic kidney disease (CKD) \-- Diabetes mellitus \-- Hypertension Assessment This is a 64 y.o. female (Ever) with a past medical history of diabetes, gastroesophageal reflux disease, hypertension, and , who presents with acute onset of diarrhea following recent travel to [facility]. The patient experienced loose stools for the last five days prior to admission and did not i mprove with an azithromycin (Z-Tim) course at home. Initial labs on admission notable for leukocytosis (WBC 11.7), hemoglobin 13.4, platelet count 340, lactic acid 1.1. Urinalysis revealed pyuria with 3+ leukocyte esterase and negative nitrites. White blood cell count is improving during hospitalization. Patient developed AMANDA on CKD and has been intermittently hypoglycemic during this admission. ESBL E. coli was isolated in the urine on 02/09. C. difficile testing was negative. Diarrheal symptoms have resolved. Imaging reviewed: \-- CT abdomen/pelvis: No hydronephrosis. Colonic diverticular disease. Atherosclerotic changes. \-- Renal ultrasound: No hydronephrosis or renal calculi. \-- Chest X-ray: No evidence of acute lung disease. Three-millimeter right middle lobe pulmonary nodule noted. While initially on ceftriaxone, patient was transitioned to ertapenem 500 mg daily, subsequently increased to 1 gram daily due to creatinine clearance (CrCl 35 mL/min), to complete a planned 14-day course via midline for ESBL E. coli UTI. Fluid resuscitation and electrolyte repletion ongoing in the setting of diarrhea and AMANDA. Workup for persistent diarrhea included plans for ova and parasite stool examination and stool culture, given the travel history (possible Giardia). Imodium and other antidiarrheal agents to be avoided due to risk of exacerbating intra-abdominal infection. C. difficile remains unlikely due to lack of classic risk factors or prior hospitalizations. Plan: \-- Continue ertapenem 1 g daily to complete total 14-day course for ESBL E. coli UTI \-- Continue IV fluids and monitor renal function, electrolytes; replete as needed \-- Monitor blood glucose with diabetes management, assess for hypoglycemia \-- Monitor bowel movements; continue ova and parasite testing, stool culture \-- Avoid antidiarrheal agents \-- AMANDA: Continue supportive measures, reassess renal function \-- Outpatient follow-up for incidental 3-mm right middle lobe pulmonary nodule as indicated \-- Defer further noninfectious diarrhea workup to primary team Isolation Precautions: standard \*Assessment and plan was discussed with the patient as written above \*Plan is subject to change pending incorporation of new incoming information/diagnostics. Updates may be added as addendum at the bottom (OR TOP) of this note Thank you for interesting consult. ID will continue to follow. Please contact Infectious Disease for any questions or concerns. Dalila Reddy M.D. [facility] Ph: ? Teams text: [email or web address] Electronically signed by: Dalila Reddy MD, 02/12/2025 \ History: The patient's chart and medications were reviewed in detail and the patient was seen and examined. History obtained from: patient Ever is a 64 y.o. female with a past medical history of diabetes, hypertension, gastroesophageal reflux disease, and prior , presenting with acute diarrheal illness following travel to [facility]. No history of tobacco, alcohol, or IV drug use. No known allergies. Diarrhea duration was five days prior to admission, unresponsive to azithromycin at home. Hospital course notable for AMANDA on CKD, intermittent hypoglycemia, and new diagnosis of ESBL E. coli UTI. Review of Systems: A complete 10 system review of systems was completed and negative except as noted in the HPI or here. ROS: -CONSTITUTIONAL: Denies weight loss, fever, and chills. -HEENT: Denies changes in vision and hearing. -RESPIRATORY: Denies shortness of breath and cough. -CV: Denies palpitations and chest pain. -GI: Reports recent diarrhea (now resolved). Denies abdominal pain, nausea, vomiting, and ongoing diarrhea. -: Denies dysuria and urinary frequency. -MSK: Denies myalgia and joint pain. -SKIN: Denies rash and pruritus. -NEUROLOGICAL: Denies headache and syncope. -PSYCHIATRIC: Denies recent changes in mood, anxiety, and depression. Past Medical History: Diagnosis Date Diabetes mellitus Not specified Hypertension Not specified Gastroesophageal reflux disease Not specified Chronic kidney disease Not specified Past Surgical History: History reviewed. . No other pertinent surgical history. Home Medications: Prior to Admission medications Medication Sig Azithromycin (Z-Tim), attempted at home; no improvement. Other home medications not specified in transcript. Allergies: Allergies No Known Allergies Family History: Family history not discussed in transcript. Social History: Social History Socioeconomic History Marital status: Not specified Number of children: Not specified Years of education: Not specified Highest education level: Not specified Occupational History Not specified Tobacco Use Smoking status: Never Smokeless tobacco: Never Alcohol Use Never Drug Use Never Sexual activity: Not discussed Social Determinants of Health Not discussed in transcript. Objective: Vital Signs on Arrival: Temp: 98.4 F BP: 126/76 Pulse: 82 Resp: 15 SpO2: Not specified Most Recent Vital Signs: Not provided in transcript Admission Weight: Not provided in transcript BMI: Not provided in transcript Physical Exam: General: NAD Neck: Supple. No masses. HEENT: PERRL. Normal lids and conjunctiva. Moist mucous membranes. Oropharynx without lesions, exudates or excessive erythema. Normal appearance of the external aspects of the nose and ears. Heart: Regular rhythm, normal rate. No murmur. No lower extremity edema. Lungs: Normal respiratory effort. Clear to auscultation bilaterally. No wheezes. No crackles. Abdomen: Mild tenderness. Normal active bowel sounds. Soft. Non-distended. No masses or abdominal hernia. Msk: No digital cyanosis. Normal strength and tone in all 4 limbs Skin: Warm and dry, no rashes. Neuro: Alert. No facial droop or slurred speech. Extra-ocular movements intact. Sensation intact to soft touch in all 4 limbs. Psych: Appropriate mood. Full affect. Oriented to person, place, time, and situation. Lines: Active Lines Midline for IV antibiotic administration, duration not specified. Diagnostic Studies: Available diagnostic studies were reviewed personally. Significant relevant results and findings are outlined below or addressed in the Assessment and Plan above. Pertinent Imaging: Recent Results CT Abdomen and Pelvis No hydronephrosis. Colonic diverticular disease. Atherosclerotic changes. Renal Ultrasound No hydronephrosis. No renal calculi. Chest X-ray No evidence of acute lung disease. Three-millimeter right middle lobe pulmonary nodule. Laboratories: WBC: 11.7 (on admission) Hemoglobin: 13.4 Platelets: 340 Lactic acid: 1.1 Urinalysis: Pyuria, 3+ leukocyte esterase, negative nitrites Creatinine clearance: 35 mL/min Other diagnostics: Stool C. difficile: Negative ESBL E. coli isolated in urine (02/09) Further stool testing for ova/parasites and culture pending Plan discussed with: Patient DALILA REDDY MD Feb 13, 2025 11:08
--- NOTE | 2025-02-13 11:29 | DVHPN2 ---
Consult Progress Note Objective vital signs Vital Sign Date Time Temp Pulse Resp B/P (MAP) Pulse Ox O2 Delivery O2 Flow Rate FiO2 02/13/25 09:56 174/60 02/13/25 08:00 Room Air* 0 21 02/13/25 05:00 98.4 81 18 95 98.4 Total Intake and Output 02/12/25 02/12/25 02/13/25 15:00 23:00 07:00 Intake Total 600 ml 600 ml Balance 600 ml 600 ml medications Current Medications Medications Dose Ordered Sig/Dorothy Route Start Time Stop Time Status Last Admin Dose Admin Sodium Chloride 10 ml Q8HR IV 02/07/25 22:00 02/13/25 06:03 Docusate Sodium 100 mg BIDPRN PRN PO 02/07/25 18:30 02/13/25 10:11 Acetaminophen 650 mg Q6HP PRN PO 02/07/25 18:30 02/13/25 10:04 Acetaminophen/ Hydrocodone Bitart 1 tab Q4HP PRN PO 02/07/25 18:30 02/08/25 05:42 Ondansetron HCl 4 mg Q4HP PRN IV 02/07/25 18:30 02/11/25 22:12 Aspirin 81 mg DAILY PO 02/08/25 10:00 02/13/25 09:55 Nifedipine 30 mg DAILY PO 02/08/25 10:00 02/13/25 09:55 Pantoprazole Sodium 40 mg DAILY PO 02/08/25 10:00 02/13/25 09:55 Insulin Glargine 35 units DAILY@LUNCH SC 02/08/25 12:00 02/11/25 12:27 Furosemide 20 mg QAM PO 02/09/25 07:00 02/13/25 06:04 Diagnostic Test (Pha) 1 strip ACHS 02/08/25 17:00 02/13/25 06:05 Insulin Human Regular ACHS SC 02/08/25 17:00 02/11/25 11:30 Dextrose 50 ml UD PRN IV 02/08/25 14:30 Lisinopril 20 mg DAILY PO 02/10/25 10:00 02/13/25 09:56 Ertapenem 0.5 gm/ Sodium Chloride 50 ml @ 100 mls/hr DAILY IV 02/11/25 10:15 02/13/25 10:11 Hydralazine HCl 10 mg Q6HP PRN IV 02/11/25 12:45 02/12/25 13:40 laboratory and microbiology Laboratory Tests 02/12/25 04:46 Test 02/12/25 04:46 Range/Units Serum Glucose 78 74-106 mg/dL Dietary Evaluation Review Comments: 1) Consider CCHO 60gm + renal 50gm protein 2) Refer Rheumatologist for diabetes education Expected Outcomes/Goals: To meet >75% estimated needs Lab values to improve Fu 3-5 days DALILA KAPLAN MD Feb 13, 2025 11:29
[2025-02-13 13:00] VITALS: BP 161/79; PULSE 74; RESP 20; O2SAT 96
[2025-02-13] MEDS: SENNA 8.6 MG TAB PO ONE (15:16)
[2025-02-13] MEDS: POLYETHYLENE GLYCOL 17 GM PWDR PO ONE (15:16)
[2025-02-13 17:00] VITALS: BP 113/70; PULSE 82; RESP 18; TEMP 98.2; O2SAT 90
[2025-02-13] MEDS: LACTULOSE 20Gm/30ML SOLN PO SCH (17:21)
--- NOTE | 2025-02-13 18:39 | DVHPN2 ---
Subjective Patient is complaining of lower abdominal pain. Reviewed: H&P, Labs Changes from previous H/P or p: No Changes Objective Vitals Vital Signs Date Time Temp Pulse Resp B/P (MAP) Pulse Ox O2 Delivery O2 Flow Rate FiO2 02/13/25 15:16 161/79 02/13/25 13:00 74 20 96 02/13/25 09:00 98.2 98.2 02/13/25 08:00 Room Air* 0 21 Intake/Output Intake and Output 02/13/25 07:00 Intake Total 1200 ml Balance 1200 ml Intake Oral 1200 ml # Voids 6 Exam HEENT pupils are reactive Neck is supple CV is S1-S2 regular rate and rhythm Respiratory diminished breath sounds bases GI positive bowel sound Extremity no edema [employer] no motor deficit. General Appearance: Alert HEENT: Atraumatic Lungs: Clear to auscultation Cardiovascular: Regular rate, Normal S1, Normal S2 Abdomen: Normal bowel sounds Medications Current Medications Medications Dose Ordered Sig/Dorothy Route Start Time Stop Time Status Last Admin Dose Admin Sodium Chloride 10 ml Q8HR IV 02/07/25 22:00 02/13/25 11:43 10 ML Docusate Sodium 100 mg BIDPRN PRN PO 02/07/25 18:30 02/13/25 10:11 100 MG Acetaminophen 650 mg Q6HP PRN PO 02/07/25 18:30 02/13/25 10:04 650 MG Acetaminophen/ Hydrocodone Bitart 1 tab Q4HP PRN PO 02/07/25 18:30 02/08/25 05:42 1 TAB Ondansetron HCl 4 mg Q4HP PRN IV 02/07/25 18:30 02/11/25 22:12 4 MG Aspirin 81 mg DAILY PO 02/08/25 10:00 02/13/25 09:55 81 MG Nifedipine 30 mg DAILY PO 02/08/25 10:00 02/13/25 09:55 30 MG Pantoprazole Sodium 40 mg DAILY PO 02/08/25 10:00 02/13/25 09:55 40 MG Insulin Glargine 35 units DAILY@LUNCH SC 02/08/25 12:00 02/13/25 11:43 35 UNITS Furosemide 20 mg QAM PO 02/09/25 07:00 02/13/25 06:04 20 MG Diagnostic Test (Pha) 1 strip ACHS 02/08/25 17:00 02/13/25 17:21 1 STRIP Insulin Human Regular ACHS SC 02/08/25 17:00 02/13/25 11:41 8 UNITS Dextrose 50 ml UD PRN IV 02/08/25 14:30 Lisinopril 20 mg DAILY PO 02/10/25 10:00 02/13/25 09:56 20 MG Ertapenem 0.5 gm/ Sodium Chloride 50 ml @ 100 mls/hr DAILY IV 02/11/25 10:15 02/13/25 10:11 100 MLS/HR Hydralazine HCl 10 mg Q6HP PRN IV 02/11/25 12:45 02/13/25 15:16 10 MG Lactulose 30 ml Q6HR PO 02/13/25 18:00 02/13/25 17:21 30 ML Laboratory Results Laboratory Tests 02/12/25 04:46 Urinalysis Test 02/07/25 10:02 Urine Color Dark yellow (Yellow) Urine Clarity Ex.turbid (Clear) Urine pH 6.5 (5.0-9.0) Urine Specific [place] 1.015 (1.001-1.035) Urine Protein 3+ (Negative) H Urine Ketones Negative (Negative) Urine Blood 1+ /uL (Negative) H Urine Nitrite Negative (Negative) Urine Bilirubin Negative (Negative) Urine Urobilinogen Normal mg/dL (Negative) Urine Leukocyte Esterase 3+ /uL (Negative) Urine RBC 18 /hpf (0 - 4) Urine WBC Clumps Present /hpf (None Seen) Urine Microscopic WBC 873 /HPF (0-5) H Urine Squamous Epithelial Cells Few /hpf (<5) Urine Bacteria None seen /hpf (None Seen) Urine Creatinine 102.56 mg/dL (30.0-125.0) Urine Sodium 85 mmol/L (40-220) Urine Glucose Normal mg/dL (Normal) Microbiology Microbiology Date/Time Source Procedure Growth Status 02/07/25 21:00 Nose MRSA Screen - Final Methicillin Resistant S.aureus Complete 02/07/25 10:02 Voided Urine Urine Culture - Final Escherichia coli - ESBL Complete Assessment/Plan Assessment/Plan 74-year-old female with a known history of diabetes mellitus type 2, hypertension, CKD initially admitted to the hospital with the abdominal pain and diarrhea found to have 1. Sepsis secondary to Gram-negative UTI 2. ESBL UTI 3. Diarrhea resolved 4. Diabetes mellitus type 2 5. Hypertension 6. 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 Leukocytosis likely reactive -IV antibiotics, midline, PT evaluation and treatment, keep the isolation. Plan discussed with: Patient My Orders Orders - ROSI BERGMAN MD Procedure Category Date Status Time Lactulose Oral PHA 02/13/25 In Process 18:00 Date of Service: Feb 13, 2025 Billing Provider: ROSI BERGMAN MD Common Visit Codes: [id number] INP/OBS CARE(MOD) ROSI BERGMAN MD Feb 13, 2025 18:39
[2025-02-13 21:00] VITALS: BP 136/55; PULSE 82; RESP 15; TEMP 98.1; O2SAT 94
[2025-02-14] VITALS (7 sets, daily range): BP systolic 131–170; BP diastolic 51–83; PULSE 82–86; RESP 15–18; TEMP 36.7; O2SAT 92–96
--- NOTE | 2025-02-14 15:51 | DVHDS2 ---
Discharge Summary Date of Admission Feb 07, 2025 at 18:29 Date of Discharge: Feb 14, 2025 Labs/Diagnostic Data: Laboratory Results Test 02/14/25 12:03 02/12/25 04:46 02/09/25 07:04 02/08/25 06:40 POC Glucose 162 mg/dl (70-106) White Blood Count 12.2 10^3/uL (4.4-10.8) Red Blood Count 4.20 10^6/uL (4.0-5.20) Hemoglobin 12.6 g/dL (12.2-16.2) Hematocrit 37.6 % (36.0-46.0) Mean Corpuscular Volume 89.4 fL (80.0-100.0) Mean Corpuscular Hemoglobin 30.0 pg (28.0-32.0) Mean Corpuscular Hemoglobin Concent 33.5 g/dL (32.0-36.0) Red Cell Distribution Width 13.9 % (11.8-14.3) Platelet Count 305 10^3/uL (140-450) Mean Platelet Volume 7.7 fL (6.9-10.8) Neutrophils (%) (Auto) 70.5 % (37.0-80.0) Lymphocytes (%) (Auto) 20.9 % (10.0-50.0) Monocytes (%) (Auto) 6.4 % (0.0-12.0) Eosinophils (%) (Auto) 1.5 % (0.0-7.0) Basophils (%) (Auto) 0.7 % (0.0-2.0) Neutrophils # (Auto) 8.6 10 ^3/uL (1.6-8.6) Lymphocytes # (Auto) 2.6 10 ^3/uL (0.4-5.4) Monocytes # (Auto) 0.8 10 ^3/uL (0-1.3) Eosinophils # (Auto) 0.2 10 ^3/uL (0-0.8) Basophils # (Auto) 0.1 10 ^3/uL (0-0.2) Nucleated Red Blood Cells 0.0 % Sodium Level 139 mmol/L (136-145) Potassium Level 4.0 mmol/L (3.5-5.1) Chloride Level 104 mmol/L (98-107) Carbon Dioxide Level 27 mmol/L (20-31) Anion Gap 8 (5-15) Blood Urea Nitrogen 18 mg/dL (9-23) Creatinine 1.61 mg/dL (0.550-1.02) Glomerular Filtration Rate Calc 34 mL/min (>90) BUN/Creatinine Ratio 11.2 (10.0-20.0) Serum Glucose 78 mg/dL (74-106) Calcium Level 9.2 mg/dL (8.7-10.4) Magnesium Level 1.9 mg/dL (1.6-2.6) Hemoglobin A1c 8.3 % A1C (<5.7) Total Bilirubin 0.2 mg/dL (0.2-1.0) Aspartate Amino Transferase (AST) 21 U/L (13-40) Alanine Aminotransferase (ALT) 16 U/L (7-40) Alkaline Phosphatase 122 U/L (46-116) Total Protein 6.2 g/dL (5.7-8.2) Albumin 3.5 g/dL (3.2-4.8) Test 02/07/25 10:22 02/07/25 10:02 Lactic Acid Level 1.1 mmol/L (0.4-2.0) Urine Color Dark yellow (Yellow) Urine Clarity Ex.turbid (Clear) Urine pH 6.5 (5.0-9.0) Urine Specific [place] 1.015 (1.001-1.035) Urine Protein 3+ (Negative) Urine Ketones Negative (Negative) Urine Blood 1+ /uL (Negative) Urine Nitrite Negative (Negative) Urine Bilirubin Negative (Negative) Urine Urobilinogen Normal mg/dL (Negative) Urine Leukocyte Esterase 3+ /uL (Negative) Urine RBC 18 /hpf (0 - 4) Urine WBC Clumps Present /hpf (None Seen) Urine Microscopic WBC 873 /HPF (0-5) Urine Squamous Epithelial Cells Few /hpf (<5) Urine Bacteria None seen /hpf (None Seen) Urine Creatinine 102.56 mg/dL (30.0-125.0) Urine Sodium 85 mmol/L (40-220) Urine Glucose Normal mg/dL (Normal) Other Laboratory Tests 02/12/25 04:46 Brief Hx & Hospital Course: 74-year-old female with a known history of diabetes mellitus type 2, hypertension, CKD initially admitted to the hospital with the abdominal pain and diarrhea found to have sepsis secondary to Gram-negative UTI. Patient's has a ESBL UTI. Patient was kept on isolation started on Invanz. Infectious Disease was consulted who recommended IV in once for 10 days. Patient is being discharged under stable condition. Diarrhea has been resolved. Patient is being discharged under stable condition with the home health home IV antibiotics. Condition at Discharge: Stable Final Diagnosis/Problems List 74-year-old female with a known history of diabetes mellitus type 2, hypertension, CKD initially admitted to the hospital with the abdominal pain and diarrhea found to have 1. Sepsis secondary to Gram-negative UTI 2. ESBL UTI 3. Diarrhea resolved 4. Diabetes mellitus type 2 5. Hypertension 6. 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 Leukocytosis likely reactive Discharge Disposition: Home with Health Services SNF Discharge Will this Physician continue t: No Discharge Instruct/Medications Diet: Cardiac 2g Na,low cholest Diet comment: 1800 ADA diet. Activity: No Restrictions, As Tolerated Follow Up/Referral: Follow up with the PCP in one week Follow up with the Infectious Disease Dr. Dada Reddy in one week Medications: As prescribed and reconciled. Scheduled Acetaminophen (Acetaminophen), 500 MG PO TID Aspirin (Aspirin Low Dose), 81 MG PO DAILY Azithromycin (Azithromycin), 250 MG PO DAILY Dapagliflozin Propanediol (Farxiga), 1 TAB PO DAILY, (Reported) Furosemide (Furosemide), 20 MG PO BID, (Reported) Insulin Aspart (Novolog), 5 UNIT SC TIDAC, (Reported) Insulin Glargine (Basaglar Kwikpen), 35 UNIT SUBCUT DAILY@LUNCH, (Reported) Linagliptin Base (Tradjenta), 1 TAB PO DAILY, (Reported) Metoclopramide Hcl (Reglan), 10 MG PO TID Nifedipine (Nifedipine Er), 1 TAB PO DAILY, (Reported) Oseltamivir Phosphate (Tamiflu), 75 MG PO BID Pantoprazole Sodium Sesquihydr (Protonix), 40 MG PO DAILY Pantoprazole Sodium Sesquihydr (Protonix), 40 MG PO DAILY Scheduled PRN Acetaminophen (Acetaminophen), 500 MG PO Q6HP PRN Ibuprofen Micronized (Ibuprofen), 600 MG PO TID PRN Promethazine-Dm (Promethazine Dm 6.25-15 mg/5Ml), 5 ML PO TID PRN Discharge Statement: "Patient was advised to return to the ER or call 911 if any headaches, dizziness, shortness of breath, chest pain, abdominal pain, bleeding, fevers, or worsening of medical condition. Patient was counseled about treatment plan, medications, possible side effects, patientverbalized understanding. All questions were answered to the best of my ability. This discharge took greater then 30 minutes in planning, reviewing documentation, counseling the patient, and discussing with other team members." ASSESSMENT ASSESSMENT Assessment 74-year-old female with a known history of diabetes mellitus type 2, hypertension, CKD initially admitted to the hospital with the abdominal pain and diarrhea found to have 1. Sepsis secondary to Gram-negative UTI 2. ESBL UTI 3. Diarrhea resolved 4. Diabetes mellitus type 2 5. Hypertension 6. 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 Leukocytosis likely reactive Date of Service: Feb 14, 2025 Billing Provider: ROSI BERGMAN MD Common Visit Codes: [id number] DISCH DAY >30min, NOT BILLABLE ROSI BERGMAN MD Feb 14, 2025 15:51
== END 2025-02-14 17:35 | disposition home health service (06) | DRG 871 ==
LOC: ER 09:10 → OVERFLOW 18:29 → WEST WING 20:42
PROVIDERS: ADMIT Internal Medicine; ATTEND Internal Medicine
DX: A41.51 Sepsis due to Escherichia coli [E. coli] (principal); N17.0 Acute kidney failure with tubular necrosis; N39.0 Urinary tract infection, site not specified; Z16.12 Extended spectrum beta lactamase (ESBL) resistance; N18.9 Chronic kidney disease, unspecified; E11.22 Type 2 diabetes mellitus with diabetic chronic kidney disease; I12.9 Hypertensive chronic kidney disease with stage 1 through stage 4 chronic kidney disease, or unspecified chronic kidney disease; K21.9 Gastro-esophageal reflux disease without esophagitis; E11.649 Type 2 diabetes mellitus with hypoglycemia without coma; K57.30 Diverticulosis of large intestine without perforation or abscess without bleeding; Z79.82 Long term (current) use of aspirin; Z79.84 Long term (current) use of oral hypoglycemic drugs; Z79.899 Other long term (current) drug therapy; Z79.2 Long term (current) use of antibiotics; Z83.3 Family history of diabetes mellitus; Z82.49 Family history of ischemic heart disease and other diseases of the circulatory system; Z79.4 Long term (current) use of insulin
CPT/HCPCS: 36415; 71045; 74176; 76775; 80048; 80053; 81001; 82570; 82962; 83036; 83605; 83735; 84300; 85025; 87045; 87081; 87086; 87088; 87186; 87427; 96365; G0378; J1335; J1815; J2405; J2543